=== PATIENT | male | born 1955 | race Caucasian/White ===

== ENCOUNTER 2020-05-08 08:18 | Outpatient (REF) | payer MEDICARE, SELFPAY ==
[2020-05-08 10:22] LABS: MANUAL DIFF FLAG NO
[2020-05-08 10:28] LABS: Basophils Absolute Auto 0.1 X10*3/uL (0.0-0.2); Basophils Percent Auto 1.4 % (0-2); Eosinophils Absolute Auto 0.3 X10*3/uL (0.0-0.4); Hematocrit 47.5 % (42-52); Hemoglobin 15.7 g/dl (14.0-18.0); Imm Gran Abs Auto 0.02 X10*3/uL (0.00-0.03); Imm Gran Pct Auto 0.3 % (0.0-0.4); Lymphocytes Absolute Auto 2.5 X10*3/uL (1.2-4.9); Lymphocytes Percent Auto 37.7 % (20-40); Mean Corpuscular HGB Conc 33.1 g/dl (31.0-36.0); Mean Corpuscular Hemoglobin 31.3 pg (27.0-33.0); Mean Corpuscular Volume 94.6 fL (80-98); Monocytes Absolute Auto 0.5 X10*3/uL (0.1-1.2); Monocytes Percent Auto 7.1 % (2-11); Neutrophils Absolute Auto 3.3 X10*3/uL (2.0-8.3); Neutrophils Percent Auto 49.5 % (45-73); Platelet Count 261 X10*3/uL (160-400); Red Blood Count 5.02 X10*6/uL (4.60-5.80); Red Cell Distribution Width 12.4 % (11.0-16.0); White Blood Count 6.6 X10*3/uL (4.8-10.8)
[2020-05-08 11:46] LABS: Alanine Aminotransferase 22 U/L (0-40); Albumin Level 4.4 g/dL (3.5-5.0); Alkaline Phosphatase 65 U/L (39-117); Anion Gap 13 (12-20); Aspartate Amino Transferase 19 U/L (5-37); Bilirubin Total 0.7 mg/dL (0.0-1.0); Blood Urea Nitrogen 14 mg/dL (9-16); Carbon Dioxide 25 mmol/L (22-29); Chloride 106 mmol/L (96-108); Cholesterol 103 mg/dL; Estimated Glomerular Filt Rate > 60; Glucose Fasting 135 mg/dL (60-99); HDL Cholesterol 28 mg/dL; LDL Cholesterol Calculated 63 mg/dl; Potassium 4.8 mmol/l (3.3-5.1); Sodium 139 mmol/L (135-145); Triglycerides 61 mg/dL
[2020-05-08 11:47] LABS: Creatinine Urine 190.95 mg/dL; Erythrocyte Sedimentation Rate 3 MM/HR (0-15); Microalbum/Creatinine Ratio Ur 3.6 ug/mg cr
== END 2020-05-08 08:19 | disposition home or self-care (01) ==
LOC: HO.WFDLDS 08:18
PROVIDERS: PCP Family Medicine; Visit Provider Family Medicine
DX: E78.2 Mixed hyperlipidemia (principal); Z00.00 Encounter for general adult medical examination without abnormal findings; I10 Essential (primary) hypertension; R03.0 Elevated blood-pressure reading, without diagnosis of hypertension; E11.9 Type 2 diabetes mellitus without complications; I25.10 Atherosclerotic heart disease of native coronary artery without angina pectoris; J44.9 Chronic obstructive pulmonary disease, unspecified; M19.041 Primary osteoarthritis, right hand; M19.042 Primary osteoarthritis, left hand; L57.0 Actinic keratosis
CPT/HCPCS: 36415; 80053; 80061; 82043; 84443; 85025; 85652

== ENCOUNTER 2020-08-31 15:33 | Outpatient (REF) | payer MEDICARE, SELFPAY ==
[2020-08-31 14:44] LABS: Microalbum/Creatinine Ratio Ur 4.3 ug/mg cr
== END 2020-08-31 15:34 | disposition home or self-care (01) ==
LOC: HO.LNP 15:33
PROVIDERS: Visit Provider Family Medicine
DX: I10 Essential (primary) hypertension (principal); E11.9 Type 2 diabetes mellitus without complications
CPT/HCPCS: 82043

== ENCOUNTER 2020-10-31 08:36 | Outpatient (REF) | payer MEDICARE, SELFPAY ==
[2020-10-31 11:51] LABS: Estimated Average Glucose 143 mg/dL; Hemoglobin A1c % 6.6 %
[2020-10-31 12:21] LABS: PSA,Total (Free>4and<10) 0.59 ng/mL (0.00-4.00)
[2020-10-31 12:25] LABS: Alanine Aminotransferase 20 U/L (0-40); Albumin Level 4.3 g/dL (3.5-5.0); Alkaline Phosphatase 68 U/L (39-117); Anion Gap 14 (12-20); Aspartate Amino Transferase 15 U/L (5-37); Bilirubin Total 0.7 mg/dL (0.0-1.0); Blood Urea Nitrogen 15 mg/dL (9-16); Calcium 9.1 mg/dL (8.4-10.2); Carbon Dioxide 23 mmol/L (22-29); Chloride 104 mmol/L (96-108); Estimated Glomerular Filt Rate 58; Glucose Random 288 mg/dL (60-115); Potassium 4.2 mmol/L (3.3-5.1); Sodium 137 mmol/L (135-145); Total Protein 6.9 g/dL (6.5-8.0)
[2020-11-01 08:14] LABS: Hepatitis B Core Antibody Nonreactive (Nonreactive); ~HepC Num1 0.08 S/CO (0.00-0.79); ~Hepatitis C Antibody Nonreactive (Nonreactive)
[2020-11-01 08:35] LABS: HBS Num1 0.87 mIU/mL (0-7.99); HBsAGNum1 0.48 S/CO (0.00-0.99); Hepatitis B Surface Antigen Negative (Negative); ~Hepatitis B Surface Antibody NONREACTIVE (Nonreactive)
== END 2020-10-31 08:37 | disposition home or self-care (01) ==
LOC: HO.WFDLDS 08:36
PROVIDERS: Visit Provider Family Medicine
DX: E11.9 Type 2 diabetes mellitus without complications (principal); Z11.3 Encounter for screening for infections with a predominantly sexual mode of transmission; Z11.59 Encounter for screening for other viral diseases; Z12.5 Encounter for screening for malignant neoplasm of prostate
CPT/HCPCS: 36415; 80053; 83036; 84153; 86704; 86706; 86803; 87340

== ENCOUNTER 2021-05-09 08:38 | Outpatient (REF) | payer MEDICARE, SELFPAY ==
[2021-05-09 11:29] LABS: Appearance Urine CLEAR; Color Urine YELLOW; Glucose Urine UA NEG (NEG); Leukocyte Esterase Urine NEG (NEG); Nitrite Urine NEG (NEG); PH 5.5 (5.0-8.0); Specific Gravity - Urine >= 1.030 (1.005-1.025); Urine Blood NEG (NEG); Urine Ketones NEG (NEG); Urine Protein NEG (NEG-TRACE)
[2021-05-09 12:10] LABS: Alanine Aminotransferase 20 U/L (0-40); Albumin Level 4.2 g/dL (3.5-5.0); Alkaline Phosphatase 71 U/L (39-117); Anion Gap 14 (12-20); Aspartate Amino Transferase 18 U/L (5-37); Bilirubin Total 0.6 mg/dL (0.0-1.0); Blood Urea Nitrogen 9 mg/dL (9-16); Calcium 9.1 mg/dL (8.4-10.2); Carbon Dioxide 22 mmol/L (22-29); Chloride 107 mmol/L (96-108); Cholesterol 108 mg/dL; Estimated Glomerular Filt Rate > 60; Glucose Fasting 119 mg/dL (60-99); HDL Cholesterol 28 mg/dL; LDL Cholesterol Calculated 68 mg/dl; Potassium 4.1 mmol/L (3.3-5.1); Sodium 139 mmol/L (135-145); Total Protein 6.7 g/dL (6.5-8.0); Triglycerides 62 mg/dL
[2021-05-09 12:19] LABS: TSH reflex Free T4 1.07 uIU/mL (0.32-4.0)
[2021-05-09 12:22] LABS: Creatinine Urine 178.86 mg/dL; Microalbum/Creatinine Ratio Ur 8.9 ug/mg cr
[2021-05-10 09:36] LABS: HBc Num1 0.11 S/CO (0.00-0.79); HBsAGNum1 0.16 S/CO (0.00-0.99); Hepatitis B Core Antibody Nonreactive (Nonreactive); Hepatitis B Surface Antigen Negative (Negative); ~HepC Num1 0.11 S/CO (0.00-0.79); ~Hepatitis B Surface Antibody NONREACTIVE (Nonreactive); ~Hepatitis C Antibody Nonreactive (Nonreactive)
== END 2021-05-09 08:39 | disposition home or self-care (01) ==
LOC: HO.WFDLDS 08:38
PROVIDERS: Visit Provider Family Medicine
DX: Z00.00 Encounter for general adult medical examination without abnormal findings (principal); E11.9 Type 2 diabetes mellitus without complications; I10 Essential (primary) hypertension; Z11.3 Encounter for screening for infections with a predominantly sexual mode of transmission
CPT/HCPCS: 36415; 80053; 80061; 81003; 82043; 84443; 86704; 86706; 86803; 87340

== ENCOUNTER 2021-06-06 11:42 | Outpatient (REF) | payer MEDICARE, SELFPAY ==
[2021-06-06 14:29] LABS: Anion Gap 10 (12-20); Blood Urea Nitrogen 11 mg/dL (9-16); Calcium 9.2 mg/dL (8.4-10.2); Carbon Dioxide 26 mmol/L (22-29); Chloride 107 mmol/L (96-108); Estimated Glomerular Filt Rate > 60; Glucose Random 95 mg/dL (60-115); Potassium 4.4 mmol/L (3.3-5.1); Sodium 139 mmol/L (135-145)
[2021-06-06 14:30] LABS: Estimated Average Glucose 128 mg/dL; Hemoglobin A1c % 6.1 %
== END 2021-06-06 11:43 | disposition home or self-care (01) ==
LOC: HO.WFDLDS 11:42
PROVIDERS: Visit Provider Family Medicine
DX: Z00.00 Encounter for general adult medical examination without abnormal findings (principal); E11.9 Type 2 diabetes mellitus without complications
CPT/HCPCS: 36415; 80048; 83036

== ENCOUNTER 2021-06-13 13:49 | Outpatient (REF) | payer MEDICARE, SELFPAY | END 2021-06-13 13:50 | disposition home or self-care (01) | LOC: HO.LNP 13:49 | PROVIDERS: Visit Provider Hospitalist | DX: Z20.822 Contact with and (suspected) exposure to COVID-19 (principal) | CPT/HCPCS: U0003; U0005 ==

== ENCOUNTER → 2022-01-10 09:26 | Outpatient (BNVA) | payer MEDICARE, SELFPAY | PROVIDERS: PCP Family Medicine; Visit Provider Surgery Vascular Surgery | DX: I73.9 Peripheral vascular disease, unspecified (principal) | CPT/HCPCS: 99202 ==

== ENCOUNTER 2022-02-28 14:13 | Outpatient (REF) | payer MEDICARE, SELFPAY ==
--- NOTE | ~2022-02-28 | US_ITS ---
EXAMINATION: COLOR-FLOW DUPLEX IMAGING OF THE BILATERAL LOWER EXTREMITY ARTERIAL SYSTEM. VELOCITY MEASUREMENTS THROUGHOUT THE FEMORAL ARTERIES WITH ANKLE-BRACHIAL PERIPHERAL ARTERIAL TESTING. Interventional Radiologist: Isaías Diaz M.D., F.S.I.R., F.A.C.R. CLINICAL INFORMATION: This is a 66 year old male with peripheral vascular disease. RIGHT FEMORAL RUNOFF VELOCITIES: The right common femoral artery measures 153 cm/s and triphasic. The right profunda femoral artery is 127 cm/s and is triphasic. Right proximal superficial femoral artery measures 86 cm/s and biphasic. Mid superficial femoral artery is 127 cm/s and triphasic. Distal right superficial femoral artery measures 146 cm/s and is triphasic. Right popliteal velocity measures 63 cm/s and is biphasic. The posterior tibial artery velocity measures 85 cm/s and was triphasic. The right ankle-brachial next is 1.08. LEFT FEMORAL RUNOFF VELOCITIES: The left common femoral artery measures 156 cm/s and triphasic. The left profunda femoral artery is 187 cm/s and is triphasic. Left proximal superficial femoral artery measures 127 cm/s and biphasic. Mid superficial femoral artery is 38 cm/s and monophasic. Distal left superficial femoral artery has focal occlusion with slow flow that measures 32 cm/s and is monophasic. Left popliteal velocity measures 38 cm/s and is monophasic. The posterior tibial artery velocity has segmental occlusion with slow flow that measures 16 cm/s and was monophasic. The left ankle-brachial index is 0.55. US/US arterial duplex LE BI IMPRESSION: 1. RIGHT SIDE: There is scattered atherosclerotic disease in the right superficial femoral artery but with a normal ankle-brachial next. 2. LEFT SIDE: There is are occluded segments of the distal left superficial femoral artery and in the posterior tibial artery. This is causing significant decrease in the ankle-brachial index.
--- NOTE | ~2022-02-28 | US_ITS ---
EXAMINATION: COLOR-FLOW DUPLEX IMAGING OF THE BILATERAL LOWER EXTREMITY ARTERIAL SYSTEM. VELOCITY MEASUREMENTS THROUGHOUT THE FEMORAL ARTERIES WITH ANKLE-BRACHIAL PERIPHERAL ARTERIAL TESTING. Interventional Radiologist: Isaías Diaz M.D., F.S.I.R., F.A.C.R. CLINICAL INFORMATION: This is a 66 year old male with peripheral vascular disease. RIGHT FEMORAL RUNOFF VELOCITIES: The right common femoral artery measures 153 cm/s and triphasic. The right profunda femoral artery is 127 cm/s and is triphasic. Right proximal superficial femoral artery measures 86 cm/s and biphasic. Mid superficial femoral artery is 127 cm/s and triphasic. Distal right superficial femoral artery measures 146 cm/s and is triphasic. Right popliteal velocity measures 63 cm/s and is biphasic. The posterior tibial artery velocity measures 85 cm/s and was triphasic. The right ankle-brachial next is 1.08. LEFT FEMORAL RUNOFF VELOCITIES: The left common femoral artery measures 156 cm/s and triphasic. The left profunda femoral artery is 187 cm/s and is triphasic. Left proximal superficial femoral artery measures 127 cm/s and biphasic. Mid superficial femoral artery is 38 cm/s and monophasic. Distal left superficial femoral artery has focal occlusion with slow flow that measures 32 cm/s and is monophasic. Left popliteal velocity measures 38 cm/s and is monophasic. The posterior tibial artery velocity has segmental occlusion with slow flow that measures 16 cm/s and was monophasic. The left ankle-brachial index is 0.55. US/US JEAN PIERRE complete IMPRESSION: 1. RIGHT SIDE: There is scattered atherosclerotic disease in the right superficial femoral artery but with a normal ankle-brachial next. 2. LEFT SIDE: There is are occluded segments of the distal left superficial femoral artery and in the posterior tibial artery. This is causing significant decrease in the ankle-brachial index.
== END 2022-02-28 14:14 | disposition home or self-care (01) ==
LOC: HO.US 14:13
PROVIDERS: Visit Provider Surgery Vascular Surgery
DX: I73.9 Peripheral vascular disease, unspecified (principal)
CPT/HCPCS: 93923; 93925

== ENCOUNTER → 2022-03-05 15:02 | Outpatient (BNVA) | payer MEDICARE, SELFPAY | PROVIDERS: PCP Family Medicine; Visit Provider Surgery Vascular Surgery | DX: I73.9 Peripheral vascular disease, unspecified (principal) | CPT/HCPCS: 99212 ==

== ENCOUNTER → 2022-04-16 15:07 | Outpatient (BNVA) | payer MEDICARE, SELFPAY | PROVIDERS: PCP Family Medicine; Visit Provider Surgery Vascular Surgery | DX: I73.9 Peripheral vascular disease, unspecified (principal) | CPT/HCPCS: 99212 ==

== ENCOUNTER 2022-05-22 07:00 | Day surgery (SDC) | payer MEDICARE, SELFPAY ==
[2022-05-22] VITALS (18 sets, daily range): BP systolic 83–116; BP diastolic 49–73; PULSE 54–86; RESP 16–18; TEMP 36.1–37.1; O2SAT 95–99; BMI 26.1
[2022-05-22 07:19] LABS: Glucose, Whole Blood 131 mg/dL (60-115)
[2022-05-22 07:29] LABS: MANUAL DIFF FLAG NO
[2022-05-22 07:30] LABS: Basophils Absolute Auto 0.1 X10*3/uL (0.0-0.2); Basophils Percent Auto 1.2 % (0-2); Eosinophils Absolute Auto 0.3 X10*3/uL (0.0-0.4); Eosinophils Percent Auto 3.4 % (0-4); Hematocrit 47.4 % (42.0-52.0); Hemoglobin 15.6 g/dl (14.0-18.0); Imm Gran Abs Auto 0.02 X10*3/uL (0.00-0.03); Imm Gran Pct Auto 0.2 % (0.0-0.4); Lymphocytes Absolute Auto 2.8 X10*3/uL (1.2-4.9); Lymphocytes Percent Auto 30.6 % (20-40); Mean Corpuscular HGB Conc 32.9 g/dl (31.0-36.0); Mean Corpuscular Hemoglobin 31.1 pg (27.0-33.0); Mean Corpuscular Volume 94.4 fL (80.0-98.0); Mean Platelet Volume 9.6 fL (9.4-12.4); Monocytes Absolute Auto 0.7 X10*3/uL (0.1-1.2); Neutrophils Absolute Auto 5.2 x10*3/uL (2.0-8.3); Neutrophils Percent Auto 56.6 % (45-73); Platelet Count 243 X10*3/uL (160-400); Red Blood Count 5.02 X10*6/uL (4.60-5.80); Red Cell Distribution Width 12.9 % (11.0-16.0); White Blood Count 9.1 X10*3/uL (4.8-10.8)
[2022-05-22] MEDS: 0.9 % Sodium Chloride 1,000 ML 100 ML IVCONT (07:41)
[2022-05-22 07:48] LABS: Blood Urea Nitrogen 14 mg/dL (9-16); Estimated Glomerular Filt Rate > 60
--- NOTE | 2022-05-22 07:50 | ECG_ITS ---
Test Reason : syncope Blood Pressure : / mmHG Vent. Rate : 050 BPM Atrial Rate : 050 BPM P-R Int : 206 ms QRS Dur : 096 ms QT Int : 456 ms P-R-T Axes : 065 065 056 degrees QTc Int : 415 ms Sinus bradycardia Otherwise normal ECG No previous ECGs available Referred By: Abebe Lindsey Electronically Signed By:IVONNE RIZVI MD
[2022-05-22 07:52] LABS: Glucose, Whole Blood 131 mg/dL (60-115)
--- NOTE | 2022-05-22 07:52 | PC.NURSE ---
pt sts feeling dizzy, feels faint pulse 32-41 was in the 70S check bs and b/p wnl pt diaphoretic, denies c/p neuros intact chito inman rn to make dr martínez aware ekg ordered
--- NOTE | 2022-05-22 08:04 | PC.NURSE ---
ekg performed pt feeling better 300ml bolus given ls clear pwd neuros intact denies dizziness at this time
--- NOTE | 2022-05-22 08:08 | PC.NURSE ---
b/p low 84/56 pulse 52 denies dizziness pwd rad aware bolus cont
--- NOTE | 2022-05-22 08:40 | PC.NURSE ---
pt pwd denies dizziness a/ox3 neuros intact SB with occ pvcs ls clear aware careplan
--- NOTE | 2022-05-22 08:57 | PC.NURSE ---
everyone aware of patients status
[2022-05-22 09:08] LABS: Glucose, Whole Blood 135 mg/dL (60-115)
--- NOTE | 2022-05-22 09:48 | PC.NURSE ---
pt resting comfortably denies pain pwd dr martínez at bedside aware of patient status
[2022-05-22] MEDS: iohexoL 350 MG/ML 100 ML INFUS..BTL IV (12:08)
--- NOTE | 2022-05-22 12:14 | P.OP_ITS ---
Operative Note Operative Note Date of Service: 05/22/22 Narrative: Angiogram report from [facility] Preoperative diagnosis: Atherosclerosis of left lower extremity with activity limiting claudication Postoperative diagnosis: Same Procedure: 1. Ultrasound-guided right common femoral access 2. Aortogram with left lower extremity runoff Surgeon:Abebe Lindsey M.D., FACS, RPVI [employer] Helper:None Anesthesia: Local with moderate conscious sedation. Total intraservice mode rate sedation time was 49 minutes. I monitored the patient's level of consciousness and physiologic status continuously throughout the procedure. Specimens:none Drains:none Estimated blood loss: Less than 10 ml Implant: None Indications: 66-year-old with activity limiting claudication. Noted to have an JEAN PIERRE of 0.55 on noninvasive testing. Now presents for endovascular intervention The patient has signed the informed consent after reviewing risks, complications, benefits, and alternatives previously discussed with the patient. The patient was given the opportunity to ask any additional questions or voice any concerns. All questions were answered to the patient's satisfaction. Procedure in detail: Patient was brought to the angiography suite prior to which a time-out was called for patient identification and site verification. Bilateral groins were prepped and draped in the standard surgical fashion. Under ultrasound guidance right common femoral was punctured with micro puncture needle and wire. Subsequently a precision 4 Yoruba sheath was then placed. [employer] System[employer] wire was advanced to the level of the aorta. 4 Yoruba Flush catheter was brought up and parked at the level of the renal arteries. Aortogram was then undertaken. Catheter was brought down to the level of the iliac bifurcation. Iliacs were subsequently imaged. Catheter was then brought in up and over to the left side SFA. Runoff study was then undertaken. We noted a total occlusion in the distal SFA. We we tried multiple wires and catheters to traverse this lesion. We were unable to do so. Multiple orthogonal views were then undertaken. Runoff study was then also undertaken. Procedure was then completed. Catheter wire sheath was removed. Direct pressure was held for approximately 10 minutes. Patient tolerated the procedure well. Returned to recovery with stable vitals. Interpretation of films: 1. Ultrasound demonstrates appropriate femoral puncture. Image of which was saved. 2. Aortogram demonstrates appropriate caliber aorta. Minimal disease. Appropriate take-off of the renals. 3. Iliac images demonstrate highly calcified but no flow-limiting stenosis 4. Left Leg Common femoral artery: Moderate disease in the common femoral Profundus Femoris: No significant disease Superficial femoral artery: Calcified throughout total occlusion at Kiran's canal reconstitutes at the above knee popliteal Popliteal artery (p1,p2,p3): P2 segment has a mild to moderate stenosis Anterior tibial artery: Reconstitutes via collateral in supplies the foot Peroneal artery: Reconstitutes via collaterals and supplies the foot Posterior tibial artery: Occluded Dorsalis pedis/plantar arch: Incomplete Conclusion: 1. Successful diagnostic angiogram if surgery is required it would be a fem below-knee popliteal bypass. 2. Anticoagulation status: No change This note is constructed using voice recognition software. While every effort has been made to ensure accuracy, cosmetic sales consultant errors may have been included. Thank you for allowing me to participate in the care of your patient. Yours sincerely, Abebe Lindsey MD, FACS, R.P.V.I.
== END 2022-05-22 15:26 | disposition home or self-care (01) ==
PROVIDERS: PCP Family Medicine; Visit Provider Surgery Vascular Surgery
DX: I70.262 Atherosclerosis of native arteries of extremities with gangrene, left leg (principal); F17.210 Nicotine dependence, cigarettes, uncomplicated
CPT/HCPCS: 36246; 36415; 75630; 76937; 82565; 82947; 84520; 85025; 93005; 99152; 99153; C1769; C1887; J2250; J3010; Q9967

== ENCOUNTER → 2022-06-04 14:21 | Outpatient (BNVA) | payer MEDICARE, SELFPAY | PROVIDERS: PCP Family Medicine; Visit Provider Surgery Vascular Surgery | DX: I73.9 Peripheral vascular disease, unspecified (principal) | CPT/HCPCS: 99212 ==

== ENCOUNTER 2022-06-12 07:19 | Outpatient (REF) | payer MEDICARE, SELFPAY ==
[2022-06-12 11:23] LABS: MANUAL DIFF FLAG NO
[2022-06-12 11:27] LABS: Basophils Absolute Auto 0.2 X10*3/uL (0.0-0.2); Basophils Percent Auto 1.8 % (0-2); Eosinophils Absolute Auto 0.2 X10*3/uL (0.0-0.4); Eosinophils Percent Auto 2.6 % (0-4); Hematocrit 45.9 % (42.0-52.0); Hemoglobin 15.3 g/dl (14.0-18.0); Imm Gran Abs Auto 0.03 X10*3/uL (0.00-0.03); Imm Gran Pct Auto 0.4 % (0.0-0.4); Lymphocytes Absolute Auto 2.8 X10*3/uL (1.2-4.9); Lymphocytes Percent Auto 32.9 % (20-40); Mean Corpuscular HGB Conc 33.3 g/dl (31.0-36.0); Mean Corpuscular Hemoglobin 31.2 pg (27.0-33.0); Mean Corpuscular Volume 93.5 fL (80.0-98.0); Mean Platelet Volume 10.4 fL (9.4-12.4); Monocytes Absolute Auto 0.7 X10*3/uL (0.1-1.2); Monocytes Percent Auto 8.3 % (2-11); Neutrophils Absolute Auto 4.6 x10*3/uL (2.0-8.3); Platelet Count 261 X10*3/uL (160-400); Red Blood Count 4.91 X10*6/uL (4.60-5.80); Red Cell Distribution Width 12.8 % (11.0-16.0); White Blood Count 8.4 X10*3/uL (4.8-10.8)
[2022-06-12 11:43] LABS: Appearance Urine Clear; Color Urine Yellow; Glucose Urine UA Negative (Negative); Leukocyte Esterase Urine Negative (Negative); Nitrite Urine Negative (Negative); Urine Blood Negative (Negative); Urine Ketones Negative (Negative); Urine Protein Negative (Neg-Trace)
[2022-06-12 12:06] LABS: TSH reflex Free T4 1.52 uIU/mL (0.32-4.0)
[2022-06-12 12:18] LABS: Alanine Aminotransferase 20 U/L (0-40); Albumin Level 4.5 g/dL (3.5-5.0); Alkaline Phosphatase 67 U/L (39-117); Anion Gap 14 (12-20); Aspartate Amino Transferase 21 U/L (5-37); Bilirubin Total 0.7 mg/dL (0.0-1.0); Blood Urea Nitrogen 14 mg/dL (9-16); Calcium 9.4 mg/dL (8.4-10.2); Carbon Dioxide 25 mmol/L (22-29); Chloride 105 mmol/L (96-108); Cholesterol 115 mg/dL; Estimated Glomerular Filt Rate > 60; Glucose Fasting 111 mg/dL (60-99); HDL Cholesterol 28 mg/dL; LDL Cholesterol Calculated 74 mg/dl; Potassium 4.4 mmol/L (3.3-5.1); Sodium 140 mmol/L (135-145); Total Protein 7.3 g/dL (6.5-8.0); Triglycerides 66 mg/dL
[2022-06-12 12:29] LABS: Creatinine Urine 192.87 mg/dL; Microalbum/Creatinine Ratio Ur 5.7 ug/mg cr
[2022-06-12 12:50] LABS: Prostate Specific Antigen Scr 0.79 ng/mL (<0.05-4.0)
== END 2022-06-12 07:20 | disposition home or self-care (01) ==
LOC: HO.WFDLDS 07:19
PROVIDERS: Visit Provider Family Medicine
DX: Z00.00 Encounter for general adult medical examination without abnormal findings (principal); Z12.5 Encounter for screening for malignant neoplasm of prostate; I10 Essential (primary) hypertension
CPT/HCPCS: 36415; 80053; 80061; 81003; 82043; 84153; 84443; 85025

== ENCOUNTER 2022-08-12 17:11 | Outpatient (REF) | payer MEDICARE, SELFPAY ==
--- NOTE | ~2022-08-12 | XR_ITS ---
EXAMINATION: XR SHOULDER, LEFT CLINICAL INFORMATION: Pain. COMPARISON: Radiographs dated 08/06/2022. TECHNIQUE: AP external rotation, Grashey, scapular Y, and axillary views of the left shoulder. FINDINGS: Bone mineralization is normal. There is a mildly displaced and angulated transverse fracture on the left humeral neck. There is subluxation of the glenohumeral joint, without jonathan dislocation. There is a distal acromial undersurface osteophyte. The acromioclavicular and coracoclavicular intervals are normal. There is no soft tissue calcification or foreign body. No left pneumothorax is seen. XR/XR shoulder LT min 2V IMPRESSION: There is stable alignment of a mildly displaced and angulated fracture of the left humeral neck. No significant callus formation is seen.
== END 2022-08-12 17:12 | disposition home or self-care (01) ==
LOC: HO.HOSX 17:11
PROVIDERS: Visit Provider Physician Assistant
DX: S42.202A Unspecified fracture of upper end of left humerus, initial encounter for closed fracture (principal)
CPT/HCPCS: 73030; 99202

== ENCOUNTER 2022-09-12 12:37 | Outpatient (REF) | payer MEDICARE, SELFPAY ==
--- NOTE | ~2022-09-12 | XR_ITS ---
EXAMINATION: XR SHOULDER, LEFT CLINICAL INFORMATION: Pain. COMPARISON: Radiographs dated 08/12/2022. TECHNIQUE: AP neutral and scapular Y views of the left shoulder. FINDINGS: Slight bony demineralization is suspected. There is stable alignment of a mildly displaced and angulated transverse fracture of the left humeral neck. There is mild new callus formation. The glenohumeral joint is intact. The acromioclavicular and coracoclavicular intervals are normal. No soft tissue calcification or foreign body is seen. There is no left pneumothorax. XR/XR shoulder LT min 2V IMPRESSION: There is stable alignment of a transverse, mildly angulated fracture of the surgical neck of the proximal left humerus. There is mild callus formation now noted.
== END 2022-09-12 12:38 | disposition home or self-care (01) ==
LOC: HO.HOSX 12:37
PROVIDERS: Visit Provider Physician Assistant
DX: S42.202D Unspecified fracture of upper end of left humerus, subsequent encounter for fracture with routine healing (principal)
CPT/HCPCS: 73030

== ENCOUNTER 2022-09-13 08:17 | Outpatient (REF) | payer MEDICARE, SELFPAY ==
[2022-09-13 11:45] LABS: Anion Gap 15 (12-20); Blood Urea Nitrogen 16 mg/dL (9-16); Calcium 9.6 mg/dL (8.4-10.2); Carbon Dioxide 24 mmol/L (22-29); Chloride 104 mmol/L (96-108); Estimated Glomerular Filt Rate > 60; Glucose Fasting 110 mg/dL (60-99); Potassium 4.2 mmol/L (3.3-5.1); Sodium 139 mmol/L (135-145)
[2022-09-13 12:38] LABS: Appearance Urine Clear; Color Urine Yellow; Glucose Urine UA Negative (Negative); Leukocyte Esterase Urine Negative (Negative); Nitrite Urine Negative (Negative); PH 5.5 (5.0-9.0); Specific Gravity - Urine 1.015 (1.005-1.025); Urine Blood Negative (Negative); Urine Ketones Negative (Negative); Urine Protein Negative (Neg-Trace)
[2022-09-13 12:58] LABS: Creatinine Urine 112.74 mg/dL; Microalbumin Urine < 5.0 mg/L
== END 2022-09-13 08:18 | disposition home or self-care (01) ==
LOC: HO.WFDLDS 08:17
PROVIDERS: Visit Provider Family Medicine
DX: Z00.00 Encounter for general adult medical examination without abnormal findings (principal); E11.9 Type 2 diabetes mellitus without complications; I10 Essential (primary) hypertension
CPT/HCPCS: 36415; 80048; 81003; 82043

== ENCOUNTER 2022-10-21 08:12 | Outpatient (REF) | payer MEDICARE, SELFPAY ==
--- NOTE | ~2022-10-21 | XR_ITS ---
EXAMINATION: XR SHOULDER, LEFT CLINICAL INFORMATION: Left shoulder pain COMPARISON: 09/12/2022 TECHNIQUE: AP external rotation, Grashey, scapular Y, and axillary views of the left shoulder. FINDINGS: Redemonstration of a transverse fracture of the surgical neck of the proximal left humerus with mild osseous bridging suggestive of interval healing. XR/XR shoulder LT min 2V IMPRESSION: Healing transverse fracture of the surgical neck of the proximal left humerus.
== END 2022-10-21 08:13 | disposition home or self-care (01) ==
LOC: HO.HOSX 08:12
PROVIDERS: Visit Provider Physician Assistant
DX: S42.202D Unspecified fracture of upper end of left humerus, subsequent encounter for fracture with routine healing (principal)
CPT/HCPCS: 73030

== ENCOUNTER 2022-11-04 08:20 | Outpatient (REF) | payer MEDICARE, SELFPAY ==
--- NOTE | ~2022-11-04 | US_ITS ---
EXAMINATION: ANKLE-BRACHIAL INDICES SINGLE LEVEL PULSE VOLUME RECORDING ARTERIAL DUPLEX BILATERAL LEGS CLINICAL INFORMATION: Peripheral vascular disease. COMPARISON: None TECHNIQUE: Ankle-brachial indices and PVR at the ankle were obtained. Duplex Doppler of the bilateral lower extremity arterial systems was performed. FINDINGS: RIGHT: Ankle-brachial index: 1.56 PVR: Mildly abnormal. Diffuse atherosclerotic disease. Common femoral: PSV 103 cm/s. Triphasic waveform. Deep femoral: PSV 145 cm/s. Triphasic waveform. Proximal superficial femoral: PSV 173 cm/s. Triphasic waveform. Mid superficial femoral: PSV 66 cm/s. Triphasic waveform. Distal superficial femoral: PSV 49 cm/s. Triphasic waveform. Popliteal: PSV 25 cm/s. Triphasic waveform. Posterior tibial: PSV 62 cm/s. Triphasic waveform. Peroneal: PSV 2 cm/s. Triphasic waveform. LEFT: Ankle-brachial index: 0.69 PVR: Moderately abnormal. Diffuse atherosclerotic disease with occlusion of the mid and distal superficial femoral artery and posterior tibial artery. Common femoral: PSV 131 cm/s. Triphasic waveform. Deep femoral: PSV 212 cm/s. Triphasic waveform. Proximal superficial femoral: PSV 76 cm/s. Monophasic waveform. Mid superficial femoral: Occluded. Distal superficial femoral: Occluded. Popliteal: PSV 20 cm/s. Monophasic waveform. Posterior tibial: Occluded. Peroneal: PSV 14 cm/s. Monophasic waveform. US/US JEAN PIERRE complete IMPRESSION: Right lower extremity: Ankle-brachial index of 1.56 likely indicative of calcified blood vessels. Mildly abnormal pulse volume recording at the ankle. Diffuse atherosclerotic disease without hemodynamically significant disease by Doppler. Left lower extremity: Ankle-brachial index of 0.69 and abnormal pulse volume recording at the ankle consistent with moderate peripheral vascular disease. Occlusion of the mid and distal superficial femoral artery. The popliteal artery is reconstituted with a monophasic waveform. The posterior tibial artery is occluded. The peroneal artery is patent with a monophasic waveform.
--- NOTE | ~2022-11-04 | US_ITS ---
EXAMINATION: ANKLE-BRACHIAL INDICES SINGLE LEVEL PULSE VOLUME RECORDING ARTERIAL DUPLEX BILATERAL LEGS CLINICAL INFORMATION: Peripheral vascular disease. COMPARISON: None TECHNIQUE: Ankle-brachial indices and PVR at the ankle were obtained. Duplex Doppler of the bilateral lower extremity arterial systems was performed. FINDINGS: RIGHT: Ankle-brachial index: 1.56 PVR: Mildly abnormal. Diffuse atherosclerotic disease. Common femoral: PSV 103 cm/s. Triphasic waveform. Deep femoral: PSV 145 cm/s. Triphasic waveform. Proximal superficial femoral: PSV 173 cm/s. Triphasic waveform. Mid superficial femoral: PSV 66 cm/s. Triphasic waveform. Distal superficial femoral: PSV 49 cm/s. Triphasic waveform. Popliteal: PSV 25 cm/s. Triphasic waveform. Posterior tibial: PSV 62 cm/s. Triphasic waveform. Peroneal: PSV 2 cm/s. Triphasic waveform. LEFT: Ankle-brachial index: 0.69 PVR: Moderately abnormal. Diffuse atherosclerotic disease with occlusion of the mid and distal superficial femoral artery and posterior tibial artery. Common femoral: PSV 131 cm/s. Triphasic waveform. Deep femoral: PSV 212 cm/s. Triphasic waveform. Proximal superficial femoral: PSV 76 cm/s. Monophasic waveform. Mid superficial femoral: Occluded. Distal superficial femoral: Occluded. Popliteal: PSV 20 cm/s. Monophasic waveform. Posterior tibial: Occluded. Peroneal: PSV 14 cm/s. Monophasic waveform. US/US arterial duplex LE BI IMPRESSION: Right lower extremity: Ankle-brachial index of 1.56 likely indicative of calcified blood vessels. Mildly abnormal pulse volume recording at the ankle. Diffuse atherosclerotic disease without hemodynamically significant disease by Doppler. Left lower extremity: Ankle-brachial index of 0.69 and abnormal pulse volume recording at the ankle consistent with moderate peripheral vascular disease. Occlusion of the mid and distal superficial femoral artery. The popliteal artery is reconstituted with a monophasic waveform. The posterior tibial artery is occluded. The peroneal artery is patent with a monophasic waveform.
== END 2022-11-04 08:21 | disposition home or self-care (01) ==
LOC: HO.US 08:20
PROVIDERS: PCP Family Medicine; Visit Provider Surgery Vascular Surgery
DX: I70.213 Atherosclerosis of native arteries of extremities with intermittent claudication, bilateral legs (principal)
CPT/HCPCS: 93923; 93925

== ENCOUNTER → 2022-12-10 14:06 | Outpatient (BNVA) | payer MEDICARE, SELFPAY | PROVIDERS: PCP Family Medicine; Visit Provider Surgery Vascular Surgery | DX: I73.9 Peripheral vascular disease, unspecified (principal) | CPT/HCPCS: 99212 ==

== ENCOUNTER 2022-12-18 08:15 | Outpatient (REF) | payer MEDICARE, SELFPAY ==
--- NOTE | ~2022-12-18 | XR_ITS ---
EXAMINATION: XR SHOULDER, LEFT CLINICAL INFORMATION: Pain in left shoulder COMPARISON: Left shoulder 10/21/2022 TECHNIQUE: AP external rotation, Grashey, scapular Y, and axillary views of the left shoulder. FINDINGS: The bones are diffusely demineralized. Again seen is a transverse fracture of the surgical neck of the proximal left humerus with mild osseous bridging suggestive of interval healing. There is no change in position or alignment of the fracture fragments. Glenohumeral and acromioclavicular alignment is anatomic with normal joint space. No abnormal soft tissue calcifications. XR/XR shoulder LT min 2V IMPRESSION: Healing transverse fracture the surgical neck of the proximal left humerus
== END 2022-12-18 08:16 | disposition home or self-care (01) ==
LOC: HO.HOSX 08:15
PROVIDERS: Visit Provider Physician Assistant
DX: S42.202A Unspecified fracture of upper end of left humerus, initial encounter for closed fracture (principal)
CPT/HCPCS: 73030; 99212

== ENCOUNTER 2022-12-19 08:00 | Outpatient (RCR) | payer MEDICARE, SELFPAY ==
--- NOTE | 2022-10-18 11:25 | MHC.PT.OD ---
[facility] [place] Office [place] Office [place] Office [address] Paulo Matt [address] [phone] F: [phone] F: [phone] F: [phone] F: [phone] Physical Therapy Daily Note Diagnosis: S42.202A Unspecified frature of upper end of humerus, initial encounter for closed fracture, GENTLE ROM and perscap stabiization signed by Brigid Mancera PA-C 09/12/22 Date of Surgery: Date of Evaluation: 09/17/22 Date of Treatment: 10/18/22 Treatments to Date: Cancellations to Date: No Shows to Date: Authorized Visits: 8 Insurance End Date: Precautions/ Contraindications:cardiac, clot L LE per patient- under monitoring by cardiology- NWB L UE closed proximal humeral fracture DOI 08/06/22 history HTN, DMII, history of skin CA face L LE occlusion, cardiac, L closed proximal humeral fracture NWB L UE DOI 08/06/22 Subjective: DOI 08/06/22 fall skiing landing on L UE Was doing okay until I fell asleep funny leaning on my arm yesterday. Pain Score and Location: Objective Flowsheet: Tests & Measures AAROM flexion supine ~110 AAROM IR midline L5 with strap AAROM ER to ear Pt reports can carry cup of coffee, small water bottle Exercises Sitting with MHP with pillow under arm with MHP draped over L proximal shoulder x 10 minutes for gentle warm-up prior to ROM activities, AAROM hand interlocked for supine AAROM flexion, AAROM table slides for flexion x 10R with gentle shoulder flexion cue to stay neutral line of shoulder, trial gentle for subtle scaption in sitting x 3 reps, AAROM supine with aide of opposite hand at wrist/forearm improved tolerance post, AAROM IR with strap x 10 sec hold x 5R, education to refrain from pushing into pain, AAROM, AAROM flexion in standing with fingers interlocked within pain-free aide, AAROM flexion with steve x 10 sec hold x 5R. Encouraged patient to implement a gentle walking program to encourage AROM/relaxation of the L UE with promotion for natural arm swing. AAROM flexion in standing x 3 reps with cues for aide of lowering. Ice to L shoulder seated post activity. Reapplied ROCKTAPE two I strips for scapular retraction, thoracic extension with arms by side medial border of scap, along spine. HEP sheets issued see chart- pendulums PAINFEE AAROM IR with strap, AAROM flexion in standing with use of mirror, AAROM flexion for steve within painfree range Modalities MHP to L shoulder sitting x 10 minute pre activity with pillow support under UE to ease tissues, ice x 10 minutes post PROM supine with two square ice packs around proximal L UE. Assessment: 10/18/22: AAROM flexion in supine with wand ~110 degrees. Pt has been implemented in gentle AAROM program with good tolerance. Pt reports he is now able to lace/tie his shoes. Pt scheduled to see [facility] ortho on Friday. Pt has attended 8 session of PT to date, will continue to progress therapy twice weekly with goal of increasing AAROM/AROM as tolerated. Pt has been initiated in gentle periscap strength and was trialed once so far with submax isometric with good tolerance. He has been encouraged to implement a gentle walking program and functional use of L UE to tolerance. 10/14/22 Introduced AAROM IR with strap with good tolerance near midline L4, AAROM flexion in standing ~95 degrees this date. Pt to see [facility] ortho on 10/21/22 at 8:30am for follow-up. 10/08/22 Introduced AAROM flexion via steve with good tolerance with emphasis for GENTLE painfree ROM. Pt to trial in the office one more visit prior to visiting ability to complete at home. Pt guarded and stiff in AAROM/PROM flexion of L UE. Pt exhibits improving relaxation of L UE during ADLS/IADLS. 10/04/22: Pt is two months s/p fall/fracture today. Pt reports some increased soreness yesterday with attempt of stretching at home, unsure as to why, questions angle on couch vs bed. Pt denied sx following last session or the next day after last session. Pt encouraged stretching shoulder in zone of stretch and the importance of avoiding pain with mobility. Positive early response to tape expressed post application in the office. 10/01/22: Improving AAROM flexion with aide of R UE for support. Pt continues to exhibit decreased AROM of elbow extension with ambulation ~-10 degrees encouraged gentle relaxation awareness of this at home. He continues to report prn use of sling for sleep, encouraged gradual weaning from this. 09/27/22: Improving PROM tolerance for L shoulder. Pt reports tapering use of sling, advised/reiterated goal of weaning use. Pt expressed ease of stretching with use of MHP pre, ice post. Denies any sharp pain. 09/20/22: PROM ~40 degrees of flexion. Pt has reported tapering use of sling, presents to office wearing sling. Increasing awareness of relaxed elbow extension with arms by side vs holding guarded arm with shoulder add/IR. Pt is a RHD active, 67 y/o male with PMHS significant for cardiac history, DMII, HTN, referred to PT s/p history of fall while skiing on 08/06/22 resulting in nondisplaced closed proximal humeral fracture. Pt exhibits decreased AROM/AAROM/PROM of the L shoulder, impaired strength, presence of pain, and impaired functional use driving/dressing/lifting UE due to injury. Pt was seen in a hospital in [place] immediately following injury (brought to hospital by individual who witnessed fall) which resulted in an overnight stay out of state when family had to come get him due to inability to drive . Upon D/C from ER setting patient established care with [facility] orthopedics, underwent xray indicated mild callus formation over fracture and was cleared to start PT on 09/12/22 with instruction: gentle ROM/ periscap stabilization [facility] office notes from 09/12/22 stated clearance to D/C sling as able. Pt currently expresses decreased tolerance for sleep positions. Pt was educated re: gentle painfree passive pendulums, gentel isometric scapular retraction, goal of relaxing arm by side when out of sling, goal of GENTLE painfree table slide with aide of R UE. Pt was also educated in the benefit of icing to reduce discomfort in the shoulder. Post evaluation we reviewed positioning of the sling and benefit in using it for support when leaving the home or when in a busy environment. Pt to be seen in PT twice weekly. Pt was informed of option of being able to obtain transportation for him to and from appointments. Pt will be seen in PT twice weekly. Pt also reports history of calcified clot in L medial knee- reports seeing vascular/hvac r instructor for this with next appt set for November. They have been monitoring his sx when this was discovered in the fall. He reports bypass was discussed in cardiology in the past but was not elected due to his high activity level and patient expresses concern for this status due to now increased immobility. Pt is scheduled to see his PCP and reports has an appt with nurse navigator for DMII education later this week. PT Plan: GENTLE ROM, periscap strength NWB L UE DOI 08/06/22 closed proximal humeral fracture Short Term Goals: 1. Demonstrate safety/joint protection in use of sling, weaning from sling. 2. Painfree gentle AAROM L flexion to 90. 3. Initiate scapular stabilization program exercises. 4. Educate patient in self care management techniques. Group Home Goals: 1. I HEP. 2. AAROM L shoulder flexion to 130 to don jacket/sleeve as tolerated. 3. Initiate gentle strength program once ortho office clears for strengthening. 4. AAROM IR to midline L3 as fracture heals/pain is reduced. 5. Resume driving prolonged distances, self care MOD I. 6. Improve SPADI score by 50%. 7. I HEP with good understanding joint protection. 8. MOD I self care/household tasks. Electronically signed by: Kathleen Tavera, PT, DPT
== END 2023-07-01 11:23 | disposition home or self-care (01) ==
LOC: HO.PTWFD 08:00
PROVIDERS: Visit Provider Physician Assistant
DX: S42.202A Unspecified fracture of upper end of left humerus, initial encounter for closed fracture (principal)
CPT/HCPCS: 97110; 97140; 97150; 97163; 97535

== ENCOUNTER 2022-12-26 07:31 | Outpatient (REF) | payer MEDICARE, SELFPAY ==
[2022-12-26 11:26] LABS: Alanine Aminotransferase 23 U/L (0-40); Albumin Level 4.5 g/dL (3.5-5.0); Alkaline Phosphatase 73 U/L (39-117); Anion Gap 15 (12-20); Aspartate Amino Transferase 26 U/L (5-37); Bilirubin Total 1.2 mg/dL (0.0-1.0); Blood Urea Nitrogen 12 mg/dL (9-16); Calcium 9.7 mg/dL (8.4-10.2); Carbon Dioxide 24 mmol/L (22-29); Chloride 106 mmol/L (96-108); Estimated Glomerular Filt Rate > 60; Glucose Random 109 mg/dL (60-115); Potassium 4.1 mmol/L (3.3-5.1); Sodium 141 mmol/L (135-145); Total Protein 7.7 g/dL (6.5-8.0)
[2022-12-26 11:46] LABS: Vitamin D 25-OH Total 68.7 ng/mL (>30)
== END 2022-12-26 07:32 | disposition home or self-care (01) ==
LOC: HO.WFDLDS 07:31
PROVIDERS: Visit Provider Family Medicine
DX: E11.9 Type 2 diabetes mellitus without complications (principal); E55.9 Vitamin D deficiency, unspecified
CPT/HCPCS: 36415; 80053; 82306

== ENCOUNTER 2023-03-25 10:36 | Outpatient (AMB) | payer MEDICARE, SELFPAY ==
--- NOTE | 2023-03-25 10:43 | A.OFFPC_ITS ---
Vital Signs 03/25/23 10:45 Height 5 ft 10 in Weight 175 lb 8 oz BMI 25.2 BP 118/58 L Blood Pressure Location Lt brachial Position Sitting Pulse 82 Pulse Source Pulse Oximeter Pulse Oximetry (%) 98 Oxygen Delivery Method Room Air Intake Visit Reasons: f/u diabetes and hypertension Intake Note: Patient is here for diabetes and hypertension. Allergies environmental allergies Allergy (Mild, Verified 03/25/23 10:47) itchy, watery eyes, sneezing, coughing. Tobacco use date assessed: 03/25/23 Fall risk assessment: 1 Fall in past year Last assessed Fall Risk: 03/25/23 Dental Screening Dental Screen Date: 03/25/23 Did you have a dental visit in the last 12 months?: Yes Did you have a dental problem in the last 6 months where you did not have access to dental care?: No Was dental information given to patient?: Patient has dentist HPI f/u diabetes and hypertension HPI Details 67 y/o male presents to f/u diabetes and hypertension. Last A1c 12/26/22 was 6.6%. A1c today 03/25/23 is 6.6%. He is on Januvia 100mg and metformin 500mg b.i.d. Blood pressure today is 118/58. He is on lisinopril 10mg daily and metoprolol 25mg daily. Pt notes that when he plays pickle ball sometimes he has been experiencing L heel pain, worse with exercise/sports. ON LICENSE OF [facility] Medical History History of Mohs micrographic surgery for skin cancer Surgical History History of tooth extraction History of bone graft No pertinent past surgical history Family History Other No pertinent family history Social History Housing: House Alcohol intake: current Alcohol intake frequency: holidays/special occasions only Patient Tobacco Use Status: Current everyday Tobacco user Tobacco use type: Cigarette Cigarette Packs Per Day: 1 Years Smoked: 45 Packs Per Year: 45 e-Cigarette/Vaping Use: Never Used Second Hand Smoke Exposure: No service: No Current occupational status: retired Current occupation: right handed Current occupational exposures/hazards: No Cognitive needs: No Hearing needs: No Vision needs: No Questionnaire Thrive Questionnaire Date Thrive assessed: 09/26/22 NIGHAT-7 AMB Questionnaire NIGHAT-7 Date NIGHAT - 7 assessed: 09/26/22 Source: Developed by Drs. Rupert Milton, Diane Putnam, Mac Hamilton and colleagues, with an educational lolis from [employer]. Review of Systems Const Denies chills, Denies fatigue, Denies fever(s), Denies headache(s) and Denies weakness ENT Denies dizziness and Denies headache(s) Card Denies chest pain, Denies lightheadedness, Denies dyspnea and Denies other (Palpitations) Resp Denies cough, Denies dyspnea, Denies wheezing and Denies other ( shortness of breath) Musc Details: L plantar heel pain Denies numbness and Denies tingling Neuro Denies dizziness, Denies headache(s), Denies numbness, Denies tingling, Denies paresthesias and Denies weakness Psych Denies anxiety and Denies depression Endo Denies fatigue Aller/Immun Denies wheezing Physical exam (Primary Care) Vital Signs: Last Vital Signs Pulse 82 03/25/23 10:45 BP 118/58 L 03/25/23 10:45 Pulse Ox 98 03/25/23 10:45 Oxygen Delivery Method Room Air 03/25/23 10:45 BMI result Body Mass Index 25.2 Tobacco/Smoking Status: Tobacco use Status Tobacco use date assessed 03/25/23 03/25/23 10:55 Patient Tobacco Use Status Current everyday Tobacco 03/25/23 10:55 Tobacco use type Cigarette 03/25/23 10:55 e-Cigarette/Vaping Use Never Used 03/25/23 10:55 Thrive Assessment: Date of Thrive Assessment Date Thrive assessed 09/26/22 03/25/23 10:55 Const General: no acute distress and well developed Nutritional Appearance: well nourished Orientation/consciousness: patient oriented x3 HENMT Head: Yes normocephalic and Yes atraumatic Eyes General: appearance normal, both eyes and all related structures Pupils: Equal, round and reactive pupils present EOM: EOMs intact bilaterally Resp Effort & Inspection: normal respiratory effort Auscultation: clear to auscultation bilaterally Cardio Rate: regular rate Rhythm: regular rhythm Heart sounds: S1 normal heart sound present, S2 normal heart sound present, no gallops, no murmurs and no rubs Neuro General: patient oriented x3 and gait normal Cranial nerves: Yes Equal, round and reactive pupils present Psych Affect: normal affect Results AMB Hemoglobin A1c AMB Hemoglobin A1c 6.6 % Last Edit by Jory Suarez CMA on 03/25/23 11:06 Results Reviewed Results Reviewed: Laboratory Last Values Hgb A1c (Clinic) 6.6 % (4.0-6.0) H 03/25/23 11:06 Assessment and Plan Assessment & Plan (1) Diabetes type 2, controlled: Code(s): E11.9 - Type 2 diabetes mellitus without complications Plan: A1c again 6.6% which is good control Continue current medication regimen, continue diabetic diet and exercise Maintain weight (2) Essential hypertension: Code(s): I10 - Essential (primary) hypertension Plan: Blood pressure is well controlled. Goal is less than 130/80 for patient with AAA Continue current medication regimen Continue exercise and weight control (3) CAD (coronary artery disease): Code(s): I25.10 - Atherosclerotic heart disease of [place] coronary artery without angina pectoris Plan: Stable (4) Heel pain: Code(s): M79.673 - Pain in unspecified foot Plan: Left plantar-surface heel pain and some Achilles tendon tightness Demonstrated exercises he can try. Also recommended ice/heat and can use some NSAIDs He can also consider heel risers/heel cup If not improving will consider imaging and referral to Podiatry or Ortho/sports medicine Orders: Orders AMB Hemoglobin A1c Today Z13.9 - Encounter for screening, unspecified Coding Level of Care Code Est Pt Level 4 (84011) Diagnoses Diabetes type 2, controlled E11.9 Essential hypertension I10 CAD (coronary artery disease) I25.10 Heel pain M79.673
[2023-03-25 10:45] VITALS: BP 118/58; PULSE 82; O2SAT 98; BMI 25.2
== END 2023-03-25 11:57 | disposition home or self-care (01) ==
PROVIDERS: PCP Family Medicine; Visit Provider Family Medicine
DX: E11.9 Type 2 diabetes mellitus without complications (principal); I10 Essential (primary) hypertension; I25.10 Atherosclerotic heart disease of native coronary artery without angina pectoris; M79.672 Pain in left foot
CPT/HCPCS: 83036; 99214

== ENCOUNTER 2023-06-13 07:46 | Outpatient (REF) | payer MEDICARE, SELFPAY ==
[2023-06-13 11:10] LABS: MANUAL DIFF FLAG NO
[2023-06-13 11:19] LABS: Appearance Urine Clear; Color Urine Yellow; Glucose Urine UA Negative (Negative); Leukocyte Esterase Urine Negative (Negative); Nitrite Urine Negative (Negative); Urine Blood Negative (Negative); Urine Ketones Negative (Negative); Urine Protein Negative (Neg-Trace)
[2023-06-13 11:43] LABS: Basophils Absolute Auto 0.1 X10*3/uL (0.0-0.2); Basophils Percent Auto 1.5 % (0-2); Eosinophils Absolute Auto 0.3 X10*3/uL (0.0-0.4); Eosinophils Percent Auto 3.4 % (0-4); Hematocrit 47.5 % (42.0-52.0); Imm Gran Abs Auto 0.02 X10*3/uL (0.00-0.03); Imm Gran Pct Auto 0.2 % (0.0-0.4); Lymphocytes Absolute Auto 2.6 X10*3/uL (1.2-4.9); Lymphocytes Percent Auto 31.9 % (20-40); Mean Corpuscular HGB Conc 33.7 g/dl (31.0-36.0); Mean Corpuscular Hemoglobin 31.9 pg (27.0-33.0); Mean Corpuscular Volume 94.6 fL (80.0-98.0); Mean Platelet Volume 10.1 fL (9.4-12.4); Monocytes Absolute Auto 0.6 X10*3/uL (0.1-1.2); Monocytes Percent Auto 7.5 % (2-11); Neutrophils Absolute Auto 4.5 x10*3/uL (2.0-8.3); Neutrophils Percent Auto 55.5 % (45-73); Platelet Count 247 X10*3/uL (160-400); Red Blood Count 5.02 X10*6/uL (4.60-5.80); Red Cell Distribution Width 12.9 % (11.0-16.0); White Blood Count 8.1 X10*3/uL (4.8-10.8)
[2023-06-13 12:22] LABS: Prostate Specific Antigen Scr 0.78 ng/mL (<0.05-4.0)
[2023-06-13 12:25] LABS: Alanine Aminotransferase 19 U/L (0-40); Albumin Level 4.4 g/dL (3.5-5.0); Alkaline Phosphatase 62 U/L (39-117); Anion Gap 13 (12-20); Aspartate Amino Transferase 20 U/L (5-37); Bilirubin Total 0.8 mg/dL (0.0-1.0); Blood Urea Nitrogen 15 mg/dL (9-16); Calcium 9.6 mg/dL (8.4-10.2); Carbon Dioxide 24 mmol/L (22-29); Chloride 107 mmol/L (96-108); Cholesterol 113 mg/dL (<200); Estimated Glomerular Filt Rate > 60; Glucose Fasting 117 mg/dL (60-99); HDL Cholesterol 32 mg/dL (>40); LDL Cholesterol Calculated 71 mg/dL (<100); Potassium 4.4 mmol/L (3.3-5.1); Sodium 140 mmol/L (135-145); Total Protein 7.5 g/dL (6.5-8.0); Triglycerides 50 mg/dL (<150)
[2023-06-13 12:29] LABS: TSH reflex Free T4 1.37 uIU/mL (0.32-4.0)
[2023-06-13 12:36] LABS: Creatinine Urine 128.55 mg/dL; Microalbumin Urine < 5.0 mg/L
== END 2023-06-13 07:47 | disposition home or self-care (01) ==
LOC: HO.WFDLDS 07:46
PROVIDERS: Visit Provider Family Medicine
DX: Z00.00 Encounter for general adult medical examination without abnormal findings (principal); Z12.5 Encounter for screening for malignant neoplasm of prostate; I10 Essential (primary) hypertension
CPT/HCPCS: 36415; 80053; 80061; 81003; 82043; 82570; 84153; 84443; 85025

== ENCOUNTER 2023-06-16 11:51 | Outpatient (AMB) | payer MEDICARE, SELFPAY ==
--- NOTE | 2023-06-16 11:58 | MHC.PC.OV ---
Vital Signs 06/16/23 12:00 Height 5 ft 10 in Weight 175 lb BMI 25.1 BP 126/58 L Blood Pressure Location Rt brachial Position Sitting Respiration 13 Pulse 73 Pulse Source Pulse Oximeter Pulse Oximetry (%) 97 Oxygen Delivery Method Room Air Intake Visit Reasons: Annual Physical Intake Note: Patient is here for his physical and he would like to discuss left heel pain and ask if the RSV vaccine is recommended for him. Rv Servicer Required: No Accompanied by: Self / Same As Patient Allergies environmental allergies Allergy (Mild, Verified 06/16/23 12:04) itchy, watery eyes, sneezing, coughing. Tobacco use date assessed: 03/25/23 Fall risk assessment: 1 Fall in past year Last assessed Fall Risk: 06/16/23 HPI Annual Physical HPI Details 67 y/o male presents for a CPE with f/u labs and health maintenance. Labs were drawn 06/13/23. Reviewed labs with pt. Triglycerides 50. TC 113. LDL 71. HDL low at 32. Last A1c 03/25/23 6.6%. Blood pressure today 126/58. Pt has complaints of L heel pain. [facility] Medical History History of Mohs micrographic surgery for skin cancer Surgical History History of tooth extraction History of bone graft No pertinent past surgical history Social History Household Members: Spouse Housing: House Alcohol intake: current Alcohol intake frequency: holidays/special occasions only Alcohol type: beer Patient Tobacco Use Status: Current everyday Tobacco user Tobacco use type: Cigarette Cigarette Packs Per Day: 1 Years Smoked: 45 e-Cigarette/Vaping Use: Never Used Second Hand Smoke Exposure: No service: No Current occupational status: retired Current occupation: right handed Current occupational exposures/hazards: No Sexual orientation: Unable to collect Gender identity: Unable to collect Cognitive needs: No Hearing needs: No Vision needs: No Questionnaire PHQ-9 Over the last 2 weeks, how often have you been bothered by any of the following problems? 1. Little interest or pleasure in doing things: not at all 2. Feeling down, depressed, or hopeless: not at all 3. Trouble falling or staying asleep, or sleeping too much: not at all 4. Feeling tired or having little energy: not at all 5. Poor appetite or overeating: not at all 6. Feeling bad about yourself - or that you are a failure or have let yourself or your family down: not at all 7. Trouble concentrating on things, such as reading the newspaper or watching television: not at all 8. Moving or speaking so slowly that other people could have noticed. Or the opposite - being so fidgety or restless that you have been moving around a lot more than usual: not at all 9. Thoughts that you would be better off or of hurting yourself in some way: not at all Total score: 0 Depression Screening Interpretation: Negative Depression Screening Done: Yes 40306 - PHQ-9 Billing: Yes Source: Developed by Drs. Rupert Milton, Diane Putnam, Mca Hamilton and colleagues, with an educational lolis from [employer]. Thrive Questionnaire Date Thrive assessed: 06/16/23 I am a: Patient What is your living situation today?: I have a steady place to live Within the past 12 months, did the food you bought not last and you didn't have the money to get more?: Never true Within the past 12 months, did you worry whether your food would run out before you got money to buy more?: Never true Do you have trouble paying for medicines?: No Do you have trouble getting transportation to medical appointments?: No Do you have trouble paying your heating and electricity bill?: No Do you have trouble taking care of your child, family member or friend?: No Do you have trouble with day-to-day activities such as bathing, preparing meals, shopping, managing finances, etc.?: No Are you currently unemployed and looking for a job?: No Are you interested in more education?: No Please select the resources that you would like help with: None Currently or been in a relationship where the following occur: no concerns reported AUDIT C Alcohol Use Questionnaire (AUDIT-C) 1. How often do you have a drink containing alcohol?: Never 3. How often do you have six or more drinks on one occasion?: Never Total Score: 0 NIGHAT-7 AMB Questionnaire NIGHAT-7 Date NIGHAT - 7 assessed: 06/16/23 Feeling nervous, anxious, or on edge: 0 = Not at all Not being able to stop or control worryin = Not at all Worrying too much about different things: 0 = Not at all Trouble relaxin = Not at all Being so restless that it is hard to sit still: 0 = Not at all Becoming easily annoyed or irritable: 0 = Not at all Feeling afraid as if something awful might happen: 0 = Not at all Total NIGHAT-7 score (0-4 normal; 5-9 mild; 10-14 moderate; 15-21 severe): 0 Source: Developed by Drs. Rupert Milton, Diane Putnam, Mac Hamilton and colleagues, with an educational lolis from [employer]. NIGHAT-7 Assessment Billing NIGHAT-7 Assessment Tool: NIGHAT-7 Assessment 29863 Review of Systems Const Denies chills, Denies fatigue, Denies fever(s), Denies headache(s) and Denies weakness Eyes Denies change in vision ENT Denies dizziness, Denies headache(s), Denies hearing loss, Denies nasal congestion, Denies sinus pain, Denies sinus pressure and Denies sore throat Card Denies chest pain, Denies lightheadedness, Denies dyspnea and Denies other (palpitations) Resp Denies cough, Denies dyspnea and Denies wheezing GI Denies abdominal pain, Denies melena, Denies hematochezia, Denies change in bowel habits, Denies dyspepsia and Denies nausea Denies hematuria and Denies dysuria Musc Details: L heel pain Denies abnormal gait, Denies myalgias, Denies arthralgias, Denies numbness and Denies tingling Skin/Breast Denies rash, Denies unusual bruising and Denies wounds Neuro Denies abnormal gait, Denies dizziness, Denies headache(s), Denies memory loss, Denies numbness, Denies Sensory deficit (Neuro), Denies tingling and Denies weakness Psych Denies anxiety, Denies depression and Denies memory loss Endo Denies cold intolerance, Denies fatigue, Denies heat intolerance, Denies polydipsia and Denies polyuria Jareth/Lymph Denies easy bleeding and Denies easy bruising Aller/Immun Denies wheezing Physical exam (Primary Care) Vital Signs: Last Vital Signs Pulse 73 06/16/23 12:00 Resp 13 06/16/23 12:00 BP 126/58 L 06/16/23 12:00 Pulse Ox 97 06/16/23 12:00 Oxygen Delivery Method Room Air 06/16/23 12:00 BMI result Body Mass Index 25.1 Tobacco/Smoking Status: Tobacco use Status Tobacco use date assessed 03/25/23 06/16/23 12:11 Patient Tobacco Use Status Current everyday Tobacco 06/16/23 12:11 Tobacco use type Cigarette 06/16/23 12:11 e-Cigarette/Vaping Use Never Used 06/16/23 12:11 PHQ-9: PHQ-9 Score PHQ-9: Total score 0 06/16/23 12:51 Depression Screening Interpretation: Negative Thrive Assessment: Date of Thrive Assessment Date Thrive assessed 06/16/23 06/16/23 12:11 Currently or been in a relationship where the following occur: no concerns reported Const General: no acute distress, well developed, alert and awake Nutritional Appearance: well nourished Orientation/consciousness: patient oriented x3 HENMT Head: Yes normocephalic and Yes atraumatic Ears: hearing grossly normal bilaterally and TM's normal bilaterally General nose exam: Normal external nose present and Normal nares present Mouth: Normal oral and palatal mucosa present and moist mucous membranes Teeth and gingiva: dentition normal Throat: Yes posterior oropharynx normal Eyes General: appearance normal, both eyes and all related structures Pupils: Equal, round and reactive pupils present and Pupil accommodation reflex normal EOM: EOMs intact bilaterally Neck Neck: Yes normal visual inspection, Yes no lymphadenopathy and Yes trachea midline Thyroid: Thyroid normal Carotids: no bruits Lymphatic: no lymphadenopathy noted Chest Chest palpation & inspection: normal inspection of the chest Resp Effort & Inspection: normal respiratory effort Auscultation: clear to auscultation bilaterally Cardio Rate: regular rate Rhythm: regular rhythm Heart sounds: S1 normal heart sound present, S2 normal heart sound present, no gallops, no murmurs and no rubs Bruits: no abdominal aortic bruits and no carotid bruits GI Palpation (GI): No Abdominal aortic bruit present, Soft to palpation, nontender, No hepatosplenomegaly present and No Rebound tenderness present Auscultation: normal bowel sounds General: Yes no CVA tenderness Back/Spine/Pelvis Back: no CVA tenderness Cervical Spine: cervical ROM normal and No Cervical spine tenderness Thoracic/Lumbar Spine: thoraco-lumbar ROM normal, No pain with thoraco-lumbar ROM, No thoracic spinal tenderness and No lumbar spinal tenderness Skin Lesions: no lesions Rashes: no rashes Trauma: no lacerations or abrasions Wounds: no wounds Nails: normal Neuro General: patient oriented x3 Cranial nerves: Yes Equal, round and reactive pupils present Cognition (Neuro): normal cognition Gait exam (Neuro): Normal gait present Motor exam (neuro): 5/5 motor strength present throughout Sensory Exam: No Sensory deficit (Neuro) Deep tendon reflexes (DTR's): Right patellar reflex intensity grade: 2+ and Left patellar reflex intensity grade: 2+ Extrem General: Yes normal to inspection and No edema Psych Appearance: grossly normal Affect: normal affect Attitude: cooperative Thought process: Normal thought process present Assessment and Plan Assessment & Plan (1) Adult general medical exam: Code(s): Z00.00 - Encounter for general adult medical examination without abnormal findings Plan: 67-year-old?male?presents?for?complete?physical?exam (2) Diabetes type 2, controlled: Code(s): E11.9 - Type 2 diabetes mellitus without complications Plan: A1c?showed?good?control?at?most?recent?test;?6.6%.??Goal?is?less?than?7.0% Taking?medication?as?prescribed. Continue?current?medication?regimen (3) Essential hypertension: Code(s): I10 - Essential (primary) hypertension Plan: Blood?pressure?is?controlled.??Goal?is?less?than?130/80.??History?of?AAA Continue?current?medication?regimen (4) CAD (coronary artery disease): Code(s): I25.10 - Atherosclerotic heart disease of [place] coronary artery without angina pectoris Plan: Stable Follow-up?with?Cardiology?as?recommended (5) Heel pain: Code(s): M79.673 - Pain in unspecified foot Plan: Likely?plantar?fasciitis Demonstrated?exercises Also?recommended?relative?rest?and?ice/heat He?will?let?me?know?if?not?improving (6) Screening for colon cancer: Code(s): Z12.11 - Encounter for screening for malignant neoplasm of colon Plan: Patient?thinks?his?last?colonoscopy?was?close?to?10?years?ago. 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 (10) Hyperlipidemia, mixed: Code(s): E78.2 - Mixed hyperlipidemia Plan: LDL?71?and?goal?is?less?than?70 Encouraged?diet?low?in?saturated?fats?and?cholesterol HDL?mildly?low. Continue?exercise (11) Low HDL (under 40): Code(s): E78.6 - Lipoprotein deficiency Plan: As?above (12) PAD (peripheral artery disease): Comment: 05/22/2022 - diagnostic angiogram Code(s): I73.9 - Peripheral vascular disease, unspecified Plan: Follow-up?with??as?recommended Continue?exercise Coding Level of Care Code Est Pt Level 4 (54553) Est Pt Prev Care >65y(44414) Diagnoses Adult general medical exam Z00.00 Diabetes type 2, controlled E11.9 Essential hypertension I10 CAD (coronary artery disease) I25.10 Heel pain M79.673 Screening for colon cancer Z12.11 Screening for prostate cancer Z12.5 Immunization counseling Z71.89 Neoplasm of uncertain behavior of skin D48.5 Hyperlipidemia, mixed E78.2 Low HDL (under 40) E78.6 PAD (peripheral artery disease) I73.9 Additional Codes NIGHAT-7 Assessment Billing - NIGHAT-7 Assessment Tool: NIGHAT-7 Assessment 24759 ([id number])
[2023-06-16 12:00] VITALS: BP 126/58; PULSE 73; RESP 13; O2SAT 97; BMI 25.1
== END 2023-06-16 12:45 | disposition home or self-care (01) ==
PROVIDERS: PCP Family Medicine; Visit Provider Family Medicine
DX: Z00.00 Encounter for general adult medical examination without abnormal findings (principal); E11.51 Type 2 diabetes mellitus with diabetic peripheral angiopathy without gangrene; I73.9 Peripheral vascular disease, unspecified; I10 Essential (primary) hypertension; I25.10 Atherosclerotic heart disease of native coronary artery without angina pectoris; M79.672 Pain in left foot; Z71.89 Other specified counseling; D48.5 Neoplasm of uncertain behavior of skin; E78.2 Mixed hyperlipidemia; E78.6 Lipoprotein deficiency
CPT/HCPCS: 99397

== ENCOUNTER 2023-09-17 15:39 | Outpatient (AMB) | payer MEDICARE, SELFPAY ==
[2023-09-17 15:47] VITALS: BP 128/68; PULSE 60; O2SAT 98; BMI 25.9
--- NOTE | 2023-09-17 15:47 | A.OFFPC_ITS ---
Vital Signs 09/17/23 15:47 Height 5 ft 10 in Weight 180 lb 4 oz BMI 25.9 BP 128/68 Blood Pressure Location Lt brachial Position Sitting Pulse 60 Pulse Oximetry (%) 98 Oxygen Delivery Method Room Air Intake Visit Reasons: 3M f/u diabetes and screenings for colon cancer Intake Note: Patient is here for folow up on diabetes and screening for colon cancer. Allergies environmental allergies Allergy (Mild, Verified 06/16/23 12:04) itchy, watery eyes, sneezing, coughing. Tobacco use date assessed: 03/25/23 HPI 3M f/u diabetes and screenings for colon cancer HPI Details 68 y/o male presents to f/u diabetes and colon cancer screening. Last A1c 03/25/23 6.6%. He reports recent eye exam showed no diabetic retinopathy. He denies any calluses/injuries on his feet. A1c today 09/17/23 is 6.9%. He is on metformin 500mg Blood pressure today 128/68. He is on metoprolol 25mg, lisinopril 10mg daily. [facility] Medical History History of Mohs micrographic surgery for skin cancer Surgical History History of tooth extraction History of bone graft No pertinent past surgical history Social History Household Members: Spouse Housing: House Alcohol intake: current Alcohol intake frequency: holidays/special occasions only Alcohol type: beer Patient Tobacco Use Status: Current everyday Tobacco user Tobacco use type: Cigarette Cigarette Packs Per Day: 1 Years Smoked: 45 e-Cigarette/Vaping Use: Never Used Second Hand Smoke Exposure: No service: No Current occupational status: retired Current occupation: right handed Current occupational exposures/hazards: No Sexual orientation: Unable to collect Gender identity: Unable to collect Cognitive needs: No Hearing needs: No Vision needs: No Questionnaire Thrive Questionnaire Date Thrive assessed: 06/16/23 NIGHAT-7 AMB Questionnaire NIGHAT-7 Date NIGHAT - 7 assessed: 06/16/23 Source: Developed by Drs. Rupert Milton, Diane Putnam, Mac Hamilton and colleagues, with an educational lolis from [employer]. Review of Systems Const Denies chills, Denies fatigue, Denies fever(s), Denies headache(s) and Denies weakness ENT Denies dizziness and Denies headache(s) Card Denies dyspnea Resp Denies cough, Denies dyspnea, Denies wheezing and Denies other (shortness of breath) Musc Denies numbness and Denies tingling Neuro Denies dizziness, Denies headache(s), Denies numbness, Denies tingling and Denies weakness Psych Denies anxiety and Denies depression Endo Denies fatigue Aller/Immun Denies wheezing Physical exam (Primary Care) Vital Signs: Last Vital Signs Pulse 60 09/17/23 15:47 BP 128/68 09/17/23 15:47 Pulse Ox 98 09/17/23 15:47 Oxygen Delivery Method Room Air 09/17/23 15:47 BMI result Body Mass Index 25.9 Tobacco/Smoking Status: Tobacco use Status Tobacco use date assessed 03/25/23 09/17/23 15:48 Patient Tobacco Use Status Current everyday Tobacco 09/17/23 15:48 Tobacco use type Cigarette 09/17/23 15:48 e-Cigarette/Vaping Use Never Used 09/17/23 15:48 Thrive Assessment: Date of Thrive Assessment Date Thrive assessed 06/16/23 09/17/23 15:48 Const General: well developed; No acute distress Nutritional Appearance: well nourished Orientation/consciousness: patient oriented x3 HENMT Head: Yes normocephalic and Yes atraumatic Eyes General: appearance normal, both eyes and all related structures Pupils: Equal, round and reactive pupils present EOM: EOMs intact bilaterally Resp Effort & Inspection: normal respiratory effort Auscultation: clear to auscultation bilaterally Cardio Rate: regular rate Rhythm: regular rhythm Heart sounds: S1 normal heart sound present, S2 normal heart sound present, no gallops, no murmurs and no rubs Neuro General: patient oriented x3 and gait normal Cranial nerves: Yes Equal, round and reactive pupils present Psych Affect: normal affect Assessment and Plan Assessment & Plan (1) Diabetes type 2, controlled: Code(s): E11.9 - Type 2 diabetes mellitus without complications Plan: A1c?climbed?from?6.6%?to?6.9%.??Still?at?goal?of?less?than?7.0%. No?change?in?medications?but?I?recommended?continued?work?at?a?diet?lower?in?sug ars?and?starches Encouraged?exercise?and?weight?control (2) Essential hypertension: Code(s): I10 - Essential (primary) hypertension Plan: Blood?pressure?is?controlled. ??Goal?is?less?than?130/80?due?to?coronary?artery?disease?and?AAA. Continue?current?medications (3) CAD (coronary artery disease): Code(s): I25.10 - Atherosclerotic heart disease of [place] coronary artery without angina pectoris Plan: Stable (4) Screening for colon cancer: Code(s): Z12.11 - Encounter for screening for malignant neoplasm of colon Plan: Correspondence?implies?his ?last?colonoscopy?was?about?9?years?ago?at[facility]?but?we?still?do?not?val[place] ve?the?report. Requesting?report?again We?can?follow-up?at?next?visit Orders: Orders AMB Hemoglobin A1c Today Z13.9 - Encounter for screening, unspecified Coding Level of Care Code Est Pt Level 4 (62279) Diagnoses Diabetes type 2, controlled E11.9 Essential hypertension I10 CAD (coronary artery disease) I25.10 Screening for colon cancer Z12.11
== END 2023-09-17 16:18 | disposition home or self-care (01) ==
PROVIDERS: PCP Family Medicine; Visit Provider Family Medicine
DX: E11.9 Type 2 diabetes mellitus without complications (principal); I10 Essential (primary) hypertension; I25.10 Atherosclerotic heart disease of native coronary artery without angina pectoris; Z12.11 Encounter for screening for malignant neoplasm of colon
CPT/HCPCS: 99214

== ENCOUNTER 2023-12-03 14:05 | Outpatient (REF) | payer MEDICARE, SELFPAY ==
--- NOTE | ~2023-12-03 | US_ITS ---
EXAMINATION: NONINVASIVE ASSESSMENT OF THE ARTERIES OF BOTH LOWER EXTREMITIES WITH PVR EXAM AND BILATERAL LOWER EXTREMITY DUPLEX Brie Saini MD CLINICAL INFORMATION: Peripheral vascular disease TECHNIQUE: Ankle pulse volume recordings, ankle pressure measurements and ankle brachial indices were obtained of the lower extremity arterial system bilaterally in addition to duplex Doppler techniques with wave form analysis and measurement of velocities in the common femoral, profunda femoral, superficial femoral, popliteal and tibial arteries. The study was performed only at rest. COMPARISON: Arterial duplex on 11/04/22 FINDINGS: a) AT REST: RIGHT LE. The right ankle-brachial index is: 1.97 * >0.97-1.25 = normal - no significant arterial disease * 0.75-0.96 = mild peripheral arterial disease * 0.5-0.74 = moderate peripheral arterial disease * <0.50 = severe peripheral arterial disease 2. Right ankle pressure: normal. 3. Right ankle PVR waveform: normal. 4. Right direct duplex Doppler findings: Common femoral artery: 125 cm/s, Multiphasic Profunda femoris artery: 74 cm/s, Multiphasic Superficial femoral artery (proximal): 57 cm/s, Multiphasic Superficial femoral artery (mid): 62 cm/s, Multiphasic Superficial femoral artery (distal): 42 cm/s, Multiphasic Proximal Popliteal artery: 46 cm/s, monophasic Mid posterior tibial artery: 46 cm/s, monophasic LEFT LE. The left ankle-brachial index is: 0.74 * >0.97-1.25 = normal - no significant arterial disease * 0.75-0.96 = mild peripheral arterial disease * 0.5-0.74 = moderate peripheral arterial disease * <0.50 = severe peripheral arterial disease 2. Left ankle pressure: normal. 3. Left ankle PVR waveform: normal. 4. Left direct duplex Doppler findings: Common femoral artery: 140 cm/s, Multiphasic Profunda femoris artery: 55 cm/s, Multiphasic Superficial femoral artery (proximal): occluded Superficial femoral artery (mid): occluded Superficial femoral artery (distal): 47 cm/s, monophasic Proximal Popliteal artery: 47 cm/s, monophasic Mid posterior tibial artery: occluded US/US JEAN PIERRE complete IMPRESSION: RIGHT LEG: Elevated JEAN PIERRE suggests significant atherosclerotic disease. Monophasic flow below the knee. LEFT LEG: Moderate peripheral arterial disease. Occluded proximal and mid superficial femoral artery and mid posterior tibial artery.
--- NOTE | ~2023-12-03 | US_ITS ---
EXAMINATION: NONINVASIVE ASSESSMENT OF THE ARTERIES OF BOTH LOWER EXTREMITIES WITH PVR EXAM AND BILATERAL LOWER EXTREMITY DUPLEX Brie Saini MD CLINICAL INFORMATION: Peripheral vascular disease TECHNIQUE: Ankle pulse volume recordings, ankle pressure measurements and ankle brachial indices were obtained of the lower extremity arterial system bilaterally in addition to duplex Doppler techniques with wave form analysis and measurement of velocities in the common femoral, profunda femoral, superficial femoral, popliteal and tibial arteries. The study was performed only at rest. COMPARISON: Arterial duplex on 11/04/22 FINDINGS: a) AT REST: RIGHT LE. The right ankle-brachial index is: 1.97 * >0.97-1.25 = normal - no significant arterial disease * 0.75-0.96 = mild peripheral arterial disease * 0.5-0.74 = moderate peripheral arterial disease * <0.50 = severe peripheral arterial disease 2. Right ankle pressure: normal. 3. Right ankle PVR waveform: normal. 4. Right direct duplex Doppler findings: Common femoral artery: 125 cm/s, Multiphasic Profunda femoris artery: 74 cm/s, Multiphasic Superficial femoral artery (proximal): 57 cm/s, Multiphasic Superficial femoral artery (mid): 62 cm/s, Multiphasic Superficial femoral artery (distal): 42 cm/s, Multiphasic Proximal Popliteal artery: 46 cm/s, monophasic Mid posterior tibial artery: 46 cm/s, monophasic LEFT LE. The left ankle-brachial index is: 0.74 * >0.97-1.25 = normal - no significant arterial disease * 0.75-0.96 = mild peripheral arterial disease * 0.5-0.74 = moderate peripheral arterial disease * <0.50 = severe peripheral arterial disease 2. Left ankle pressure: normal. 3. Left ankle PVR waveform: normal. 4. Left direct duplex Doppler findings: Common femoral artery: 140 cm/s, Multiphasic Profunda femoris artery: 55 cm/s, Multiphasic Superficial femoral artery (proximal): occluded Superficial femoral artery (mid): occluded Superficial femoral artery (distal): 47 cm/s, monophasic Proximal Popliteal artery: 47 cm/s, monophasic Mid posterior tibial artery: occluded US/US arterial duplex LE BI IMPRESSION: RIGHT LEG: Elevated JEAN PIERRE suggests significant atherosclerotic disease. Monophasic flow below the knee. LEFT LEG: Moderate peripheral arterial disease. Occluded proximal and mid superficial femoral artery and mid posterior tibial artery.
== END 2023-12-03 14:06 | disposition home or self-care (01) ==
LOC: HO.US 14:05
PROVIDERS: PCP Family Medicine; Visit Provider Surgery Vascular Surgery
DX: I73.9 Peripheral vascular disease, unspecified (principal)
CPT/HCPCS: 93923; 93925

== ENCOUNTER 2023-12-15 14:24 | Outpatient (AMB) | payer MEDICARE, SELFPAY ==
--- NOTE | 2023-12-15 14:31 | A.OFFPC_ITS ---
Vital Signs 12/15/23 14:32 Height 5 ft 10 in Weight 178 lb BMI 25.5 BP 130/74 Blood Pressure Location Lt brachial Position Sitting Pulse 72 Pulse Source Pulse Oximeter Pulse Oximetry (%) 96 Oxygen Delivery Method Room Air Intake Visit Reasons: f/u diabetes and hypertension Intake Note: Patient is here to follow up on diabetes and hypertension today. Allergies environmental allergies Allergy (Mild, Verified 12/15/23 14:33) itchy, watery eyes, sneezing, coughing. Medication List - Last Reconciled 12/15/23 by Hieu Christina MD aspirin (Adult Aspirin Regimen) 81 mg PO DAILY atorvastatin 40 mg PO DAILY 90 days fenofibrate micronized 134 mg PO DAILY lisinopril 10 mg PO DAILY 90 days metformin ER 500 mg PO BID metoprolol succinate ER 25 mg PO DAILY bdvxzsib-whb-berfz-vit K-lycop 400-20-300 mcg (One-A-Day Men's Multivitamin) tabs PO sitagliptin phosphate (Januvia) 100 mg PO DAILY 90 days vitamin B complex (B Complex-Vitamin B12 tablet) 1 tab PO DAILY Tobacco use date assessed: 03/25/23 Fall risk assessment: No Falls in past year Last assessed Fall Risk: 12/15/23 Dental Screening Dental Screen Date: 12/15/23 Did you have a dental visit in the last 12 months?: Yes Did you have a dental problem in the last 6 months where you did not have access to dental care?: No Was dental information given to patient?: Patient has dentist HPI f/u diabetes and hypertension HPI Details 68 y/o male presents to f/u hypertension , diabetes. Last A1c 09/17/23 6.9%. A1c today 12/15/23 6.2%. Blood pressure today 130/74. He is on metoprolol 25mg, lisinopril 10mg daily. Perpipheral artery disease and pt states he has an appt. with a vascular specialist next month. [facility] Medical History History of Mohs micrographic surgery for skin cancer Surgical History History of tooth extraction History of bone graft No pertinent past surgical history Social History Household Members: Spouse Housing: House Alcohol intake: current Alcohol intake frequency: holidays/special occasions only Alcohol type: beer Patient Tobacco Use Status: Current everyday Tobacco user Tobacco use type: Cigarette Cigarette Packs Per Day: 1 Years Smoked: 45 e-Cigarette/Vaping Use: Never Used Second Hand Smoke Exposure: No service: No Current occupational status: retired Current occupation: right handed Current occupational exposures/hazards: No Sexual orientation: Unable to collect Gender identity: Unable to collect Cognitive needs: No Hearing needs: No Vision needs: No Questionnaire Thrive Questionnaire Date Thrive assessed: 06/16/23 NIGHAT-7 AMB Questionnaire NIGHAT-7 Date NIGHAT - 7 assessed: 06/16/23 Source: Developed by Drs. Rupert Milton, Diane Putnam, Mac Hamilton and colleagues, with an educational lolis from [employer]. Physical exam (Primary Care) Vital Signs: Last Vital Signs Pulse 72 12/15/23 14:32 BP 130/74 12/15/23 14:32 Pulse Ox 96 12/15/23 14:32 Oxygen Delivery Method Room Air 12/15/23 14:32 BMI result Body Mass Index 25.5 Tobacco/Smoking Status: Tobacco use Status Tobacco use date assessed 03/25/23 12/15/23 14:35 Patient Tobacco Use Status Current everyday Tobacco 12/15/23 14:35 Tobacco use type Cigarette 12/15/23 14:35 e-Cigarette/Vaping Use Never Used 12/15/23 14:35 Thrive Assessment: Date of Thrive Assessment Date Thrive assessed 06/16/23 12/15/23 14:35 Results AMB Hemoglobin A1c AMB Hemoglobin A1c 6.2 % Last Edit by Jory Suarez CMA on 12/15/23 14:54 Results Reviewed Results Reviewed: Laboratory Last Values Hgb A1c (Clinic) 6.2 % (4.0-6.0) H 12/15/23 14:53 Assessment and Plan Assessment & Plan (1) Essential hypertension: Code(s): I10 - Essential (primary) hypertension Plan: Blood?pressure?is?fairly?well?controlled.??Goal?is?less?than?130/80 Continue?current?medication (2) Diabetes type 2, controlled: Code(s): E11.9 - Type 2 diabetes mellitus without complications Plan: A1c?is?6.2%.??Goal?is?less?than?7.0% Controlled Continue?current?regimen (3) CAD (coronary artery disease): Code(s): I25.10 - Atherosclerotic heart disease of [place] coronary artery without angina pectoris Plan: Stable Continue?atorvastatin,?aspirin Follow-up?with?Cardiology?as?recommended (4) Low HDL (under 40): Code(s): E78.6 - Lipoprotein deficiency Plan: LDL?is?below?40 Continue?active?lifestyle (5) History of smoking: Code(s): Z87.891 - Personal history of nicotine dependence Plan: Patient?quit?smoking?recently He?qualifies?for?low-dose?CT?scanning?which?we?will?order (6) Hyperlipidemia, mixed: Code(s): E78.2 - Mixed hyperlipidemia Plan: Fairly?well?controlled.??LDL?goal?is?less?than?70 Continue?current?medication?regimen (7) Immunization counseling: Code(s): Z71.89 - Other specified counseling Plan: Due?for?Tdap?which?he?will?receive?today He?says?he?is?up-to-date?with?COVID?shot (8) PAD (peripheral artery disease): Comment: 05/22/2022 - diagnostic angiogram Code(s): I73.9 - Peripheral vascular disease, unspecified Plan: PID?with?some?claudication?which?has?improved?with?exercise We?discussed?cilostazol?but?he?has?an?upcoming?appointment?with?his?vascular?maddie geon?later?this?month. Follow-up?with??as?recommended (9) Neoplasm of uncertain behavior of skin: Code(s): D48.5 - Neoplasm of uncertain behavior of skin Plan: Neoplasm?at?site?of?nose - this?has?been?evaluated?by?dermatology?in?the?past He?says?he?has?own?appointment?with?his?embedded linux engineer?later?this?year. (10) Screening for prostate cancer: Code(s): Z12.5 - Encounter for screening for malignant neoplasm of prostate Plan: PSA?is?within?normal?limits Continue?annual?screening (11) Screening for colon cancer: Code(s): Z12.11 - Encounter for screening for malignant neoplasm of colon Plan: Referred?for?colonoscopy (12) Adult general medical exam: Code(s): Z00.00 - Encounter for general adult medical examination without abnormal findings Plan: 68-year-old?male?presents?for?extended?exam Encouraged?healthy?diet?and?continued?exercise Orders: Orders AMB Hemoglobin A1c Today Z13.9 - Encounter for screening, unspecified Comprehensive [place]. Panel Fast Today Z00.00 - Encounter for general adult medical examination without abnormal findings Complete Blood Count Auto Diff Today Z00.00 - Encounter for general adult medical examination without abnormal findings TSH reflex Free T4 Today Z00.00 - Encounter for general adult medical examination without abnormal findings UA and rflx microscopic Today Z00.00 - Encounter for general adult medical examination without abnormal findings TDaP Immunization Today Z23 - Encounter for immunization Lipid Panel Today Z00.00 - Encounter for general adult medical examination without abnormal findings Microalbumin, Random (w Creat) Today I10 - Essential (primary) hypertension Prostate Specific Antigen Scr Today Z12.5 - Encounter for screening for malignant neoplasm of prostate Referrals Gastroenterology Referral Z12.11 - Encounter for screening for malignant neoplasm of colon Medications: New Boostrix Tdap (diphth,pertus(acell),tetanus) 0.5 mL IM ONCE 0.5 mL 0RF NS Z23 - Encounter for immunization Coding Level of Care Code Est Pt Level 4 (78615) Diagnoses Essential hypertension I10 Diabetes type 2, controlled E11.9 CAD (coronary artery disease) I25.10 Low HDL (under 40) E78.6 History of smoking Z87.891 Hyperlipidemia, mixed E78.2 Immunization counseling Z71.89 PAD (peripheral artery disease) I73.9 Neoplasm of uncertain behavior of skin D48.5 Screening for prostate cancer Z12.5 Screening for colon cancer Z12.11 Adult general medical exam Z00.00
[2023-12-15 14:32] VITALS: BP 130/74; PULSE 72; O2SAT 96; BMI 25.5
== END 2023-12-15 15:42 | disposition home or self-care (01) ==
PROVIDERS: PCP Family Medicine; Visit Provider Family Medicine
DX: E11.9 Type 2 diabetes mellitus without complications (principal); Z23 Encounter for immunization
CPT/HCPCS: 83036; 90471; 90715; 99214

== ENCOUNTER 2024-01-08 08:58 | Outpatient (AMB) | payer MEDICARE, SELFPAY ==
[2024-01-08 09:02] VITALS: BMI 25.5
--- NOTE | 2024-01-08 09:02 | MHC.OFFVIS ---
Vital Signs 01/08/24 09:02 Height 5 ft 10 in Weight 178 lb BMI 25.5 Intake Visit Reasons: 1 yr follow up Art 12/04/23 Intake Note: 1 yr follow up Arterial 12/04/23, pt states bilateral LE are feeling better than last year. Does get foot numbness. Plays tennis and pickleball regularly. Accompanied by: Self / Same As Patient Allergies environmental allergies Allergy (Mild, Verified 01/08/24 09:11) itchy, watery eyes, sneezing, coughing. HPI HPI 1 yr follow up Art 12/04/23: Details: Very pleasant 68-year-old gentleman presents for follow-up evaluation regarding peripheral vascular disease. Did have a diagnostic angiogram back in 2021 which demonstrated a femoral popliteal occlusion. He appears to be well collateralized from that. He remains quite active and plays pickleball. In addition he is taking up tennis. He actually has taken up rollerblading this summer in order to prepare for skiing once again this winter. Now presents for follow-up evaluation with noninvasive testing. [facility] Medical History History of Mohs micrographic surgery for skin cancer Surgical History History of tooth extraction History of bone graft No pertinent past surgical history Social History Household Members: Spouse Housing: House Alcohol intake: current Alcohol intake frequency: holidays/special occasions only Alcohol type: beer Patient Tobacco Use Status: Current everyday Tobacco user Tobacco use type: Cigarette Cigarette Packs Per Day: 1 Years Smoked: 45 e-Cigarette/Vaping Use: Never Used Second Hand Smoke Exposure: No service: No Current occupational status: retired Current occupation: right handed Current occupational exposures/hazards: No Sexual orientation: Unable to collect Gender identity: Unable to collect Cognitive needs: No Hearing needs: No Vision needs: No Review of Systems Const All systems reviewed & are unremarkable except as noted in HPI and below Reports no additional complaints ENT Reports Normal hearing present Card Denies chest pain, Denies chest pain at rest, Denies chest pain with activity and Denies pedal edema Resp Denies cough GI Denies abdominal pain Musc Denies abnormal gait, Denies muscle cramps and Denies radiating pain into limb Skin/Breast Denies skin ulcer and Denies wounds Neuro Reports Normal hearing present and Denies abnormal gait Psych Reports no additional complaints Physical Exam Vital Signs: BMI result Body Mass Index 25.5 Const General: cooperative, healthy appearing and comfortable Orientation/consciousness: oriented to person, oriented to place and oriented to time HEENT Head: Yes normal to inspection Neck Neck: Yes normal visual inspection Carotids: no bruits Chest Chest palpation & inspection: normal inspection of the chest Resp Effort & Inspection: normal respiratory effort and able to speak in complete sentences Auscultation: clear to auscultation bilaterally, no crackles, no rales, no rhonchi and no wheezes Cardio Other: Bilateral DP signals Rate: regular rate Rhythm: regular rhythm Heart sounds: S1 normal heart sound present and S2 normal heart sound present Bruits: no carotid bruits GI Inspection: Yes normal to inspection Skin Wounds: no wounds Hair: normal Neuro General: oriented to person, oriented to place and oriented to time Cranial nerves: Yes CN's II-XII intact bilaterally and Yes Normal hearing present Cognition (Neuro): normal cognition Motor exam (neuro): 5/5 motor strength present throughout Extrem Other: venous exam: No significant superficial varicosities or spider telangiectasias, minimal edema General: No clubbing, No cyanosis and No edema Psych Appearance: grossly normal Mental Status: mental status grossly normal Speech and movement: Normal speech and movement present Results Reviewed Results Reviewed: Noninvasive testing dated 12/03/2023 demonstrates JEAN PIERRE on the right of 1.97 and on the left of 0.74. The right is artifactually elevated. But it does appear to be within similar limits of prior when looking at direct ultrasound. Written report and images were reviewed. Assessment & Plan Assessment & Plan (1) PAD (peripheral artery disease): Comment: 05/22/2022 - diagnostic angiogram Code(s): I73.9 - Peripheral vascular disease, unspecified Category: Medical Plan: In short patient has stable claudication. I did review the pathophysiology of peripheral vascular disease with the patient. In addition we did discuss routine conservative measures including a healthy diet and the importance of exercise and ambulation. We did discuss risk factor modification. The patient will continue to to follow-up with surveillance follow-up in approximately 1 year. Thank you for allowing us to participate in this patient's care. If there are any questions or concerns please do not hesitate to contact us. Orders: Orders US arterial duplex LE BI 1 Year I73.9 - Peripheral vascular disease, unspecified Coding Level of Care Code Est Pt Level 4 (32670) Diagnoses PAD (peripheral artery disease) I73.9
== END 2024-01-08 09:33 | disposition home or self-care (01) ==
LOC: HO.HVS 09:01
PROVIDERS: PCP Family Medicine; Visit Provider Surgery Vascular Surgery
DX: I73.9 Peripheral vascular disease, unspecified (principal)
CPT/HCPCS: 99213

== ENCOUNTER → 2024-01-08 08:58 | Outpatient (BNVA) | payer MEDICARE, SELFPAY | PROVIDERS: PCP Family Medicine; Visit Provider Surgery Vascular Surgery | DX: I73.9 Peripheral vascular disease, unspecified (principal) | CPT/HCPCS: 99212 ==

== ENCOUNTER 2024-03-18 13:28 | Outpatient (AMB) | payer MEDICARE, SELFPAY ==
--- NOTE | 2024-03-18 13:37 | A.OFFPC_ITS ---
Vital Signs 03/18/24 13:39 Height 5 ft 10 in Weight 175 lb 4 oz BMI 25.1 BP 112/50 L Blood Pressure Location Lt brachial Position Sitting Respiration 16 Pulse 71 Pulse Source Pulse Oximeter Temp 97.3 F Temp Source Tympanic Pulse Oximetry (%) 95 Oxygen Delivery Method Room Air Intake Visit Reasons: f/u diabetes, hypertension Intake Note: DM f/u Allergies environmental allergies Allergy (Mild, Verified 03/18/24 13:38) itchy, watery eyes, sneezing, coughing. Medication List - Last Reconciled 03/18/24 by Hieu Christina MD aspirin (Adult Aspirin Regimen) 81 mg PO DAILY atorvastatin 40 mg PO DAILY 90 days fenofibrate micronized 134 mg PO DAILY lisinopril 10 mg PO DAILY 90 days metformin ER 500 mg PO BID metoprolol succinate ER 25 mg PO DAILY uctzxdgv-ksu-ojjbi-vit K-lycop 400-20-300 mcg (One-A-Day Men's Multivitamin) tabs PO sitagliptin phosphate (Januvia) 100 mg PO DAILY 90 days vitamin B complex (B Complex-Vitamin B12 tablet) 1 tab PO DAILY Tobacco use date assessed: 03/25/23 Dental Screening Dental Screen Date: 12/15/23 HPI f/u diabetes, hypertension HPI Details 68 y/o male presents to f/u diabetes, hy pertension. Last A1c 6.2% in December. A1c today 03/18/24 6.5%. He is on metformin 500mg b.i.d, Januvia 100mg. Last diabetic eye exam August. Blood pressure today 112/50. He is on lisinopril 10mg, metoprolol 25mg daily. Continues to f/u with Dr. Lindsey for peripheral artery disease. Stable claudication. HPI Comments History of Present Illness Details Documentation assistance for Hieu Christina MD, was provided by Janes Andrade, [employer] on 03/18/2024 at 2:13 PM EST. I, Dr. Christina, have read, observed, and verified documentation. [facility] Medical History History of Mohs micrographic surgery for skin cancer Surgical History History of tooth extraction History of bone graft No pertinent past surgical history Social History Household Members: Spouse Housing: House Alcohol intake: current Alcohol intake frequency: holidays/special occasions only Alcohol type: beer Patient Tobacco Use Status: Current everyday Tobacco user Tobacco use type: Cigarette Cigarette Packs Per Day: 1 Years Smoked: 45 e-Cigarette/Vaping Use: Never Used Second Hand Smoke Exposure: No service: No Current occupational status: retired Current occupation: right handed Current occupational exposures/hazards: No Sexual orientation: Unable to collect Gender identity: Unable to collect Cognitive needs: No Hearing needs: No Vision needs: No Questionnaire Thrive Questionnaire Date Thrive assessed: 06/16/23 NIGHAT-7 AMB Questionnaire NIGHAT-7 Date NIGHAT - 7 assessed: 06/16/23 Source: Developed by Drs. Rupert Milton, Diane Putnam, Mac Hamilton and colleagues, with an educational lolis from [employer]. Review of Systems Const Denies chills, Denies fatigue, Denies fever(s), Denies headache(s) and Denies weakness ENT Denies dizziness and Denies headache(s) Card Denies dyspnea Resp Denies cough, Denies dyspnea, Denies wheezing and Denies other (shortness of breath) Musc Denies numbness and Denies tingling Neuro Denies dizziness, Denies headache(s), Denies numbness, Denies tingling and Denies weakness Psych Denies anxiety and Denies depression Endo Denies fatigue Aller/Immun Denies wheezing Physical exam (Primary Care) Vital Signs: Last Vital Signs Temp 97.3 F 03/18/24 13:39 Pulse 71 03/18/24 13:39 Resp 16 03/18/24 13:39 BP 112/50 L 03/18/24 13:39 Pulse Ox 95 03/18/24 13:39 Oxygen Delivery Method Room Air 03/18/24 13:39 BMI result Body Mass Index 25.1 Tobacco/Smoking Status: Tobacco use Status Tobacco use date assessed 03/25/23 03/18/24 13:43 Patient Tobacco Use Status Current everyday Tobacco 03/18/24 13:43 Tobacco use type Cigarette 03/18/24 13:43 e-Cigarette/Vaping Use Never Used 03/18/24 13:43 Thrive Assessment: Date of Thrive Assessment Date Thrive assessed 06/16/23 03/18/24 13:43 Const General: well developed; No acute distress Nutritional Appearance: well nourished Orientation/consciousness: patient oriented x3 [facility] Head: Yes normocephalic and Yes atraumatic Eyes General: appearance normal, both eyes and all related structures Pupils: Equal, round and reactive pupils present EOM: EOMs intact bilaterally Resp Effort & Inspection: normal respiratory effort Auscultation: clear to auscultation bilaterally Cardio Rate: regular rate Rhythm: regular rhythm Heart sounds: S1 normal heart sound present, S2 normal heart sound present, no gallops, no murmurs and no rubs Neuro General: patient oriented x3 and gait normal Cranial nerves: Yes Equal, round and reactive pupils present Psych Affect: normal affect Assessment and Plan Assessment & Plan (1) Diabetes type 2, controlled: Code(s): E11.9 - Type 2 diabetes mellitus without complications Plan: A1c?6.5%.??Good?control.??Goal?is?less?than?7.0% Continue?current?medication?regimen Encouraged?diabetic?diet?and?exercise (2) Essential hypertension: Code(s): I10 - Essential (primary) hypertension Plan: Blood?pressure?is?controlled.??Goal?is?less?than?130/80 Blood?pressure?is?a?little?lower?than?his?typical?readings.??He?has?no?lighthea dedness?or?weakness. No?changes?to?blood?pressure?medication?regimen Check?blood?pressures?at?home Hydrate?well (3) PAD (peripheral artery disease): Comment: 05/22/2022 - diagnostic angiogram Code(s): I73.9 - Peripheral vascular disease, unspecified Plan: Stable per?vascular?surgery Follow-up?with?vascular?as?recommended Continue?exercise?and?ambulation Orders: Orders Complete Blood Count Auto Diff 5 Months Z00.00 - Encounter for general adult medical examination without abnormal findings Microalbumin, Random (w Creat) 5 Months I10 - Essential (primary) hypertension Prostate Specific Antigen Scr 5 Months Z12.5 - Encounter for screening for malignant neoplasm of prostate TSH reflex Free T4 5 Months Z00.00 - Encounter for general adult medical examination without abnormal findings Comprehensive [place]. Panel Fast 5 Months Z00.00 - Encounter for general adult medical examination without abnormal findings Lipid Panel 5 Months Z00.00 - Encounter for general adult medical examination without abnormal findings UA and rflx microscopic 5 Months Z00.00 - Encounter for general adult medical examination without abnormal findings Coding Level of Care Code Est Pt Level 3 (81164) Diagnoses Diabetes type 2, controlled E11.9 Essential hypertension I10 PAD (peripheral artery disease) I73.9
[2024-03-18 13:39] VITALS: BP 112/50; PULSE 71; RESP 16; TEMP 36.3; O2SAT 95; BMI 25.1
== END 2024-03-18 14:19 | disposition home or self-care (01) ==
PROVIDERS: PCP Family Medicine; Visit Provider Family Medicine
DX: E11.9 Type 2 diabetes mellitus without complications (principal); I10 Essential (primary) hypertension; I73.9 Peripheral vascular disease, unspecified
CPT/HCPCS: 99213

== ENCOUNTER 2024-06-21 11:18 | Outpatient (AMB) | payer MEDICARE, SELFPAY ==
--- NOTE | 2024-06-21 11:26 | A.OFFPC_ITS ---
Vital Signs 06/21/24 11:41 Height 5 ft 10 in Weight 177 lb 8 oz BMI 25.5 BP 100/60 Blood Pressure Location Rt brachial Position Sitting Respiration 16 Pulse 69 Pulse Source Pulse Oximeter Pulse Oximetry (%) 97 Oxygen Delivery Method Room Air Intake Visit Reasons: ANNUAL PE- see comments!! Intake Note: annual PE Allergies environmental allergies Allergy (Mild, Verified 06/21/24 11:35) itchy, watery eyes, sneezing, coughing. Medication List - Last Reconciled 06/21/24 by Hieu Christina MD aspirin (Adult Aspirin Regimen) 81 mg PO DAILY atorvastatin 40 mg PO DAILY 90 days fenofibrate micronized 134 mg PO DAILY lisinopril 10 mg PO DAILY 90 days metformin ER 500 mg PO BID metoprolol succinate ER 25 mg PO DAILY famvkpke-nit-zbeby-vit K-lycop 400-20-300 mcg (One-A-Day Men's Multivitamin) tabs PO sitagliptin phosphate (Januvia) 100 mg PO DAILY 90 days vitamin B complex (B Complex-Vitamin B12 tablet) 1 tab PO DAILY Tobacco use date assessed: 06/21/24 Fall risk assessment: 1 Fall in past year Last assessed Fall Risk: 06/21/24 Dental Screening Dental Screen Date: 06/21/24 Did you have a dental visit in the last 12 months?: Yes Did you have a dental problem in the last 6 months where you did not have access to dental care?: No Was dental information given to patient?: Patient has dentist HPI ANNUAL PE- see comments!! HPI Details 68 y/o male presents for a CPE with f/u labs and health maintenance. No recent labs to review. Last A1c 12/15/23 6.2%. Blood pressure today 100/60, 69p. He is on lisinopril 10mg, metoprolol 25mg daily. Does pickleball and exercises/keeps himself active. [facility] Medical History History of Mohs micrographic surgery for skin cancer Surgical History History of tooth extraction History of bone graft No pertinent past surgical history Social History Household Members: Spouse Housing: House Alcohol intake: current Alcohol intake frequency: holidays/special occasions only Alcohol type: beer Patient Tobacco Use Status: Current everyday Tobacco user Tobacco use type: Cigarette Cigarette Packs Per Day: 1 Years Smoked: 45 e-Cigarette/Vaping Use: Never Used Second Hand Smoke Exposure: No service: No Current occupational status: retired Current occupation: right handed Current occupational exposures/hazards: No Sexual orientation: Unable to collect Gender identity: Unable to collect Cognitive needs: No Hearing needs: No Vision needs: No Questionnaire PHQ-9 Over the last 2 weeks, how often have you been bothered by any of the following problems? 1. Little interest or pleasure in doing things: not at all 2. Feeling down, depressed, or hopeless: not at all 3. Trouble falling or staying asleep, or sleeping too much: not at all 4. Feeling tired or having little energy: not at all 5. Poor appetite or overeating: not at all 6. Feeling bad about yourself - or that you are a failure or have let yourself or your family down: not at all 7. Trouble concentrating on things, such as reading the newspaper or watching television: not at all 8. Moving or speaking so slowly that other people could have noticed. Or the opposite - being so fidgety or restless that you have been moving around a lot more than usual: not at all 9. Thoughts that you would be better off or of hurting yourself in some way: not at all Total score: 0 Depression Screening Interpretation: Negative Depression Screening Done: Yes 70749 - PHQ-9 Billing: Yes Source: Developed by Drs. Rupert Milton, Diane Putnam, Mac Hamilton and colleagues, with an educational lolis from [employer]. Thrive Questionnaire Date Thrive assessed: 06/21/24 I am a: Patient What is your living situation today?: I have a steady place to live Within the past 12 months, did the food you bought not last and you didn't have the money to get more?: Never true Within the past 12 months, did you worry whether your food would run out before you got money to buy more?: Never true Do you have trouble paying for medicines?: No Do you have trouble getting transportation to medical appointments?: No Do you have trouble paying your heating and electricity bill?: No Do you have trouble taking care of your child, family member or friend?: No Do you have trouble with day-to-day activities such as bathing, preparing meals, shopping, managing finances, etc.?: No Are you currently unemployed and looking for a job?: No Are you interested in more education?: No Please select the resources that you would like help with: None Currently or been in a relationship where the following occur: No concerns reported THRIVE Score: 0 AUDIT C Alcohol Use Questionnaire (AUDIT-C) 1. How often do you have a drink containing alcohol?: Monthly or less 2. How many drinks containing alcohol do you have on a typical day when you are drinking?: 1 or 2 3. How often do you have six or more drinks on one occasion?: Never Total Score: 1 NIGHAT-7 AMB Questionnaire NIGHAT-7 Date NIGHAT - 7 assessed: 06/21/24 Feeling nervous, anxious, or on edge: 0 = Not at all Not being able to stop or control worryin = Not at all Worrying too much about different things: 0 = Not at all Trouble relaxin = Not at all Being so restless that it is hard to sit still: 1 = Several days Becoming easily annoyed or irritable: 0 = Not at all Feeling afraid as if something awful might happen: 0 = Not at all Total NIGHAT-7 score (0-4 normal; 5-9 mild; 10-14 moderate; 15-21 severe): 1 Source: Developed by Drs. Rupert Milton, Diane Putnam, Mac Hamilton and colleagues, with an educational lolis from [employer]. NIGHAT-7 Assessment Billing NIGHAT-7 Assessment Tool: NIGHAT-7 Assessment 56196 Review of Systems Const Denies chills, Denies fatigue, Denies fever(s), Denies headache(s) and Denies weakness Eyes Denies change in vision ENT Denies dizziness, Denies headache(s), Denies hearing loss, Denies nasal congestion, Denies sinus pain, Denies sinus pressure and Denies sore throat Card Denies chest pain, Denies lightheadedness, Denies dyspnea and Denies other (p alpitations) Resp Denies cough, Denies dyspnea and Denies wheezing GI Denies abdominal pain, Denies melena, Denies hematochezia, Denies change in baljit l habits, Denies dyspepsia and Denies nausea Denies hematuria and Denies dysuria Musc Denies abnormal gait, Denies myalgias, Denies arthralgias, Denies numbness and Denies tingling Skin/Breast Denies rash, Denies unusual bruising and Denies wounds Neuro Denies abnormal gait, Denies dizziness, Denies headache(s), Denies memory loss, Denies numbness, Denies Sensory deficit (Neuro), Denies tingling and Denies weakness Psych Denies anxiety, Denies depression and Denies memory loss Endo Denies cold intolerance, Denies fatigue, Denies heat intolerance, Denies polydipsia and Denies polyuria Jareth/Lymph Denies easy bleeding and Denies easy bruising Aller/Immun Denies wheezing Physical exam (Primary Care) Vital Signs: Last Vital Signs Pulse 69 06/21/24 11:41 Resp 16 06/21/24 11:41 BP 100/60 06/21/24 11:41 Pulse Ox 97 06/21/24 11:41 Oxygen Delivery Method Room Air 06/21/24 11:41 BMI result Body Mass Index 25.5 Tobacco/Smoking Status: Tobacco use Status Tobacco use date assessed 06/21/24 06/21/24 11:40 Patient Tobacco Use Status Current everyday Tobacco 06/21/24 11:27 Tobacco use type Cigarette 06/21/24 11:27 e-Cigarette/Vaping Use Never Used 06/21/24 11:27 PHQ-9: PHQ-9 Score PHQ-9: Total score 0 06/21/24 12:04 Depression Screening Interpretation: Negative Thrive Assessment: Date of Thrive Assessment Date Thrive assessed 06/21/24 06/21/24 11:40 Currently or been in a relationship where the following occur: No concerns reported Const General: no acute distress, well developed, alert and awake Nutritional Appearance: well nourished Orientation/consciousness: patient oriented x3 [facility] Head: Yes normocephalic and Yes atraumatic Ears: hearing grossly normal bilaterally and TM's normal bilaterally General nose exam: Normal external nose present and Normal nares present Mouth: Normal oral and palatal mucosa present and moist mucous membranes Teeth and gingiva: dentition normal Throat: Yes posterior oropharynx normal Eyes General: appearance normal, both eyes and all related structures Pupils: Equal, round and reactive pupils present and Pupil accommodation reflex normal EOM: EOMs intact bilaterally Neck Neck: Yes normal visual inspection, Yes no lymphadenopathy and Yes trachea midline Thyroid: Thyroid normal Carotids: no bruits Lymphatic: no lymphadenopathy noted Chest Chest palpation & inspection: normal inspection of the chest Resp Effort & Inspection: normal respiratory effort Auscultation: clear to auscultation bilaterally Cardio Rate: regular rate Rhythm: regular rhythm Heart sounds: S1 normal heart sound present, S2 normal heart sound present, no gallops, no murmurs and no rubs Bruits: no abdominal aortic bruits and no carotid bruits GI Palpation (GI): No Abdominal aortic bruit present, Soft to palpation, nontender, No hepatosplenomegaly present and No Rebound tenderness present Auscultation: normal bowel sounds General: Yes no CVA tenderness Back/Spine/Pelvis Back: no CVA tenderness Cervical Spine: cervical ROM normal and No Cervical spine tenderness Thoracic/Lumbar Spine: thoraco-lumbar ROM normal, No pain with thoraco-lumbar ROM, No thoracic spinal tenderness and No lumbar spinal tenderness Skin Lesions: no lesions Rashes: no rashes Trauma: no lacerations or abrasions Wounds: no wounds Nails: normal Neuro General: patient oriented x3 Cranial nerves: Yes Equal, round and reactive pupils present Cognition (Neuro): normal cognition Gait exam (Neuro): Normal gait present Motor exam (neuro): 5/5 motor strength present throughout Sensory Exam: No Sensory deficit (Neuro) Deep tendon reflexes (DTR's): Right patellar reflex intensity grade: 2+ and Left patellar reflex intensity grade: 2+ Extrem General: Yes normal to inspection and No edema Psych Appearance: grossly normal Affect: normal affect Attitude: cooperative Thought process: Normal thought process present Coding Level of Care Code Est Pt Level 3 (63373) Est Pt Prev Care >65y(07274) Diagnoses Adult general medical exam Z00.00 Essential hypertension I10 CAD (coronary artery disease) I25.10 Diabetes type 2, controlled E11.9 Erectile dysfunction N52.9 Screening for prostate cancer Z12.5 Screening for colon cancer Z12.11 Additional Codes NIGHAT-7 Assessment Billing - NIGHAT-7 Assessment Tool: NIGHAT-7 Assessment 41684 ([id number]) PHQ-9 - 13930 - PHQ-9 Billing: Yes ([id number]) Assessment & Plan Assessment & Plan (1) Adult general medical exam: Code(s): Z00.00 - Encounter for general adult medical examination without abnormal findings Category: Medical Plan: 68-year-old?male?presents?for?complete?physical?exam Encouraged?healthy?diet?with?active?lifestyle?and?plenty?of?exercise (2) Essential hypertension: Code(s): I10 - Essential (primary) hypertension Category: Medical Plan: Blood?pressure?is?controlled.??Goal?is?less?than?130/80 Continue?current?medication?regimen (3) CAD (coronary artery disease): Code(s): I25.10 - Atherosclerotic heart disease of [place] coronary artery without angina pectoris Category: Medical Plan: Stable Follow-up?with??Juan Miguel as?recommended (4) Diabetes type 2, controlled: Code(s): E11.9 - Type 2 diabetes mellitus without complications Category: Medical Plan: A1c?today?is?6.2%.??Good?control.??Goal?is?less?than?7.0% Continue?current?medication?regimen (5) Erectile dysfunction: Code(s): N52.9 - Male erectile dysfunction, unspecified Category: Medical Plan: Trial?sildenafil Risks/benefits?discussed (6) Screening for prostate cancer: Code(s): Z12.5 - Encounter for screening for malignant neoplasm of prostate Category: Medical Plan: Check?PSA (7) Screening for colon cancer: Code(s): Z12.11 - Encounter for screening for malignant neoplasm of colon Category: Medical Plan: Has?appointment?with?Gastroenterology.?? Orders: Orders Microalbumin, Random (w Creat) Today I10 - Essential (primary) hypertension LDL Cholesterol Direct Today E78.5 - Hyperlipidemia, unspecified Comprehensive [place]. Panel Fast Today Z00.00 - Encounter for general adult medical examination without abnormal findings Prostate Specific Antigen Scr Today Z12.5 - Encounter for screening for malignant neoplasm of prostate TSH reflex Free T4 Today Z00.00 - Encounter for general adult medical examination without abnormal findings UA and rflx microscopic Today Z00.00 - Encounter for general adult medical examination without abnormal findings Lipid Panel Today Z00.00 - Encounter for general adult medical examination without abnormal findings Complete Blood Count Auto Diff Today Z00.00 - Encounter for general adult medical examination without abnormal findings Referrals Cardiology Referral I25.10 - Atherosclerotic heart disease of [place] coronary artery without angina pectoris Vascular Surgery Referral I73.9 - Peripheral vascular disease, unspecified Dermatology Referral D48.5 - Neoplasm of uncertain behavior of skin Podiatry Referral M79.673 - Pain in unspecified foot
[2024-06-21 11:41] VITALS: BP 100/60; PULSE 69; RESP 16; O2SAT 97; BMI 25.5
== END 2024-06-21 12:30 | disposition home or self-care (01) ==
PROVIDERS: PCP Family Medicine; Visit Provider Family Medicine
DX: Z00.00 Encounter for general adult medical examination without abnormal findings (principal); I10 Essential (primary) hypertension; I25.10 Atherosclerotic heart disease of native coronary artery without angina pectoris; E11.9 Type 2 diabetes mellitus without complications; N52.9 Male erectile dysfunction, unspecified; Z12.5 Encounter for screening for malignant neoplasm of prostate; Z12.11 Encounter for screening for malignant neoplasm of colon

== ENCOUNTER → 2024-06-21 11:18 | Outpatient (BNVA) | payer MEDICARE, SELFPAY | PROVIDERS: PCP Family Medicine; Visit Provider Family Medicine | DX: Z00.00 Encounter for general adult medical examination without abnormal findings (principal); I10 Essential (primary) hypertension; I25.10 Atherosclerotic heart disease of native coronary artery without angina pectoris; E11.9 Type 2 diabetes mellitus without complications; N52.9 Male erectile dysfunction, unspecified | CPT/HCPCS: 83036; 96127; 99397 ==

== ENCOUNTER 2024-06-22 08:01 | Outpatient (REF) | payer MEDICARE, SELFPAY ==
[2024-06-22 11:36] LABS: MANUAL DIFF FLAG NO
[2024-06-22 11:52] LABS: Basophils Absolute Auto 0.1 X10*3/uL (0.0-0.2); Basophils Percent Auto 1.6 % (0-2); Eosinophils Absolute Auto 0.2 X10*3/uL (0.0-0.4); Eosinophils Percent Auto 3.4 % (0-4); Hematocrit 46.3 % (42.0-52.0); Hemoglobin 15.5 g/dl (14.0-18.0); Imm Gran Abs Auto 0.02 X10*3/uL (0.00-0.03); Imm Gran Pct Auto 0.3 % (0.0-0.4); Lymphocytes Absolute Auto 2.4 X10*3/uL (1.2-4.9); Lymphocytes Percent Auto 33.7 % (20-40); Mean Corpuscular HGB Conc 33.5 g/dl (31.0-36.0); Mean Corpuscular Hemoglobin 31.6 pg (27.0-33.0); Mean Corpuscular Volume 94.5 fL (80.0-98.0); Mean Platelet Volume 9.9 fL (9.4-12.4); Monocytes Absolute Auto 0.5 X10*3/uL (0.1-1.2); Monocytes Percent Auto 6.9 % (2-11); Neutrophils Absolute Auto 3.8 x10*3/uL (2.0-8.3); Neutrophils Percent Auto 54.1 % (45-73); Platelet Count 237 X10*3/uL (160-400); Red Cell Distribution Width 13.1 % (11.0-16.0); White Blood Count 7.1 X10*3/uL (4.8-10.8)
[2024-06-22 11:54] LABS: Appearance Urine Clear; Color Urine Yellow; Glucose Urine UA Negative (Negative); Leukocyte Esterase Urine Negative (Negative); Nitrite Urine Negative (Negative); PH 5.5 (5.0-9.0); Specific Gravity - Urine 1.015 (1.005-1.025); Urine Blood Negative (Negative); Urine Ketones Negative (Negative); Urine Protein Negative (Neg-Trace)
[2024-06-22 12:21] LABS: Creatinine Urine 115.09 mg/dL; Microalbumin Urine < 5.0 mg/L
[2024-06-22 12:29] LABS: Prostate Specific Antigen Scr 0.76 ng/mL (<0.05-4.0)
[2024-06-22 12:41] LABS: TSH reflex Free T4 1.49 uIU/mL (0.32-4.0)
[2024-06-22 12:50] LABS: Anion Gap 13 (12-20)
[2024-06-22 12:54] LABS: Alanine Aminotransferase 21 U/L (0-40); Albumin Level 4.1 g/dL (3.5-5.0); Alkaline Phosphatase 55 U/L (39-117); Aspartate Amino Transferase 27 U/L (5-37); Bilirubin Total 0.7 mg/dL (0.0-1.0); Blood Urea Nitrogen 12 mg/dL (9-16); Calcium 8.6 mg/dL (8.4-10.2); Carbon Dioxide 26 mmol/L (22-29); Chloride 105 mmol/L (96-108); Cholesterol 104 mg/dL (<200); Estimated Glomerular Filt Rate > 60; Glucose Fasting 124 mg/dL (60-99); HDL Cholesterol 31 mg/dL (>40); LDL Cholesterol Calculated 58 mg/dL (<100); Sodium 140 mmol/L (135-145); Total Protein 7.2 g/dL (6.5-8.0); Triglycerides 79 mg/dL (<150)
[2024-06-24 03:38] LABS: LDL Cholesterol Direct 61 mg/dL (<100)
== END 2024-06-22 08:02 | disposition home or self-care (01) ==
LOC: HO.WFDLDS 08:01
PROVIDERS: Visit Provider Family Medicine
DX: Z00.00 Encounter for general adult medical examination without abnormal findings (principal); Z12.5 Encounter for screening for malignant neoplasm of prostate; I10 Essential (primary) hypertension; E78.5 Hyperlipidemia, unspecified
CPT/HCPCS: 36415; 80053; 80061; 81003; 82043; 82570; 83721; 84153; 84443; 85025

== ENCOUNTER 2024-07-20 11:18 | Outpatient (AMB) | payer MEDICARE, SELFPAY ==
--- NOTE | 2024-07-20 11:14 | A.OFFPC_ITS ---
Intake Visit Reasons: f/u CPE-labs via telemedicine Allergies environmental allergies Allergy (Mild, Verified 07/20/24 11:15) itchy, watery eyes, sneezing, coughing. Tobacco use date assessed: 06/21/24 Dental Screening Dental Screen Date: 06/21/24 HPI f/u CPE-labs via telemedicine HPI Details 68 y/o male presents to f/u CPE-labs via telemedicine. Labs drawn 06/22/24. Reviewed labs with pt. Elevated fasting glucose of 124. Triglycerides 79. TC 104. LDL 61. HDL low at 31. PFSH Medical History History of Mohs micrographic surgery for skin cancer Surgical History History of tooth extraction History of bone graft No pertinent past surgical history Social History Household Members: Spouse Housing: House Alcohol intake: current Alcohol intake frequency: holidays/special occasions only Alcohol type: beer Patient Tobacco Use Status: Current everyday Tobacco user Tobacco use type: Cigarette Cigarette Packs Per Day: 1 Years Smoked: 45 e-Cigarette/Vaping Use: Never Used Second Hand Smoke Exposure: No service: No Current occupational status: retired Current occupation: right handed Current occupational exposures/hazards: No Sexual orientation: Unable to collect Gender identity: Unable to collect Cognitive needs: No Hearing needs: No Vision needs: No Questionnaire Thrive Questionnaire Date Thrive assessed: 06/21/24 NIGHAT-7 AMB Questionnaire NIGHAT-7 Date NIGHAT - 7 assessed: 06/21/24 Source: Developed by Drs. Rupert Milton, Diane Putnam, Mac Hamilton and colleagues, with an educational lolis from [employer]. Physical exam (Primary Care) Tobacco/Smoking Status: Tobacco use Status Tobacco use date assessed 06/21/24 07/20/24 11:17 Patient Tobacco Use Status Current everyday Tobacco 07/20/24 11:17 Tobacco use type Cigarette 07/20/24 11:17 e-Cigarette/Vaping Use Never Used 07/20/24 11:17 Thrive Assessment: Date of Thrive Assessment Date Thrive assessed 06/21/24 07/20/24 11:17 Telehealth Telehealth Telehealth Platform: Telephone Location of provider rendering services: practice address Location of patient: address on file Patient Identification confirmed using: Name, : Yes Telehealth method: voice only Patient verbally consented to treatment: Yes Patient verbally consented to billing insurance company: Yes Patient informed of any privacy concerns related to visit: Yes Minutes spent on Phone/Video with Pt.: 11 Coding Level of Care Code Tele Est Pt Level 2 (57345) Diagnoses Hyperlipidemia, mixed E78.2 CAD (coronary artery disease) I25.10 Diabetes type 2, controlled E11.9 Neoplasm of uncertain behavior of skin D48.5 Heel pain M79.673 Screening for prostate cancer Z12.5 Erectile dysfunction N52.9 Assessment & Plan Assessment & Plan (1) Hyperlipidemia, mixed: Code(s): E78.2 - Mixed hyperlipidemia Category: Medical Plan: TC,?LDL?and?triglycerides?appear?well?controlled.??He?is?on?atorvastatin. HDL?still?low. Continue?atorvastatin.??Goal?for?LDL?is?less?than?70. Follow-up?with??and?discuss?low?HDL. (2) CAD (coronary artery disease): Code(s): I25.10 - Atherosclerotic heart disease of [place] coronary artery without angina pectoris Category: Medical Plan: Stable Follow-up?with? (3) Diabetes type 2, controlled: Code(s): E11.9 - Type 2 diabetes mellitus without complications Category: Medical Plan: A1c?shows?good?control.??Goal?is?less?than?7.0% Continue?current?medication Patient?has?upcoming?eye?exam?in?will?have?report?forwarded?to?me (4) Neoplasm of uncertain behavior of skin: Code(s): D48.5 - Neoplasm of uncertain behavior of skin Category: Medical Plan: Has?appointment?Dermatology (5) Heel pain: Code(s): M79.673 - Pain in unspecified foot Category: Medical Plan: Patient?has?appointment?with?Podiatry Also?sees?vascular?surgery - scheduled?in?December (6) Screening for prostate cancer: Code(s): Z12.5 - Encounter for screening for malignant neoplasm of prostate Category: Medical Plan: PSA?is?within?normal?limits,?stable Will?continue?annual?screening (7) Erectile dysfunction: Code(s): N52.9 - Male erectile dysfunction, unspecified Category: Medical Plan: Sent?a?script?for?sildenafil. We?can?discuss?in?follow-up?at?next?visit Medications: New sildenafil administer 30 minutes to 4 hours before activity 50 mg PO DAILY 30 days PRN 6 tabs 3RF sexual activity
== END 2024-07-20 17:05 | disposition home or self-care (01) ==
LOC: HO.HMCFM 11:18
PROVIDERS: PCP Family Medicine; Visit Provider Family Medicine
DX: E78.2 Mixed hyperlipidemia (principal); I25.10 Atherosclerotic heart disease of native coronary artery without angina pectoris; E11.9 Type 2 diabetes mellitus without complications; D48.5 Neoplasm of uncertain behavior of skin; M79.673 Pain in unspecified foot; Z12.5 Encounter for screening for malignant neoplasm of prostate; N52.9 Male erectile dysfunction, unspecified

== ENCOUNTER → 2024-07-20 11:18 | Outpatient (BNVA) | payer MEDICARE, SELFPAY | PROVIDERS: PCP Family Medicine; Visit Provider Family Medicine ==

== ENCOUNTER 2024-09-13 14:36 | Outpatient (AMB) | payer MEDICARE, SELFPAY ==
--- NOTE | 2024-09-13 14:42 | A.OFFVIS_ITS ---
Vital Signs 09/13/24 14:55 Height 5 ft 10 in Weight 176 lb 5.917 oz BMI 25.3 BP 106/52 L Blood Pressure Location Rt brachial Position Sitting Pulse 74 Pulse Source Pulse Oximeter Pulse Oximetry (%) 99 Oxygen Delivery Method Room Air Intake Visit Reasons: Colonoscopy Screening Intake Note: NEW PATIENT for recall screening, 2nd lifetime. ~ 10 years ago via [employer] [place]. Chief Complaint; C/O occasional reflux which primarily seems to be diet related per pt. Only ~ 6 episodes per year. Pt also reports more frequent episodes of constipation / hard stools. Reports BM every 2-3 days on average. No additional concerns at this time. Pharmacy verified? [facility] for [facility]. One time Rx - [facility] [employer] Required: No Accompanied by: Self / Same As Patient Allergies environmental allergies Allergy (Mild, Verified 09/13/24 14:42) itchy, watery eyes, sneezing, coughing. HPI HPI Colonoscopy Screening: Details: 69 year old? male with past medical history of PID, history of SC, COPD, hypertension, hyperlipidemia, diabetes is here today for pre colonoscopy screening.? Patient was sent to us by his PCP.? Last colonoscopy about 10 years ago or so, was told that it was normal.? Patient denies any gastrointestinal symptoms in the past or at present.? However patient does report to have occasional constipation. Bowel movement sometimes every 2-3 days. Constipation occasionally wear his bowels are very hard and large. Denies melena, hematochezia, unintentional weight loss or ribbon like stools. Denies any personal or family history of gastrointestinal disease, colon polyps, or CRC.? Denies history of difficulty with sedation or anesthesia in the past.? Negative for history of sleep apnea.? Denies any history of cardiac, renal, pulmonary, or hepatic disease.?? No history of infectious? diseases like hepatitis A, B, C, HIV or tuberculosis.? Patient is on low-dose aspirin [facility] Medical History History of Mohs micrographic surgery for skin cancer Surgical History Hx of colonoscopy (~2014) History of tooth extraction History of bone graft No pertinent past surgical history Social History (Reviewed 09/13/24 @ 14:48 by Anthony West [facility]) Household Members: Spouse Housing: House Alcohol intake: current Alcohol intake frequency: holidays/special occasions only Alcohol type: beer Patient Tobacco Use Status: Current everyday Tobacco user Tobacco use type: Cigarette Cigarette Packs Per Day: 1 Years Smoked: 45 e-Cigarette/Vaping Use: Never Used Second Hand Smoke Exposure: No service: No Current occupational status: retired Current occupation: right handed Current occupational exposures/hazards: No Sexual orientation: Unable to collect Gender identity: Unable to collect Cognitive needs: No Hearing needs: No Vision needs: No Review of Systems Const Denies weight gain and Denies weight loss ENT Reports no additional complaints, Denies dysphagia and Denies odynophagia Card Reports no additional complaints Resp Reports no additional complaints GI Denies abdominal pain, Denies belching, Denies melena, Denies bloating, Denies change in bowel habits, Denies dysphagia, Denies excessive flatus, Denies dyspepsia, Denies heartburn, Denies diarrhea, Denies loose stools, Denies nausea, Denies odynophagia and Denies vomiting Reports no additional complaints Musc Reports no additional complaints Neuro Reports no additional complaints Psych Reports no additional complaints Endo Reports no additional complaints Physical Exam Vital Signs: Last Vital Signs Pulse 74 09/13/24 14:55 BP 106/52 L 09/13/24 14:55 Pulse Ox 99 09/13/24 14:55 Oxygen Delivery Method Room Air 09/13/24 14:55 BMI result Body Mass Index 25.3 Const General: healthy appearing, no acute distress and well developed Nutritional Appearance: well nourished Orientation/consciousness: patient oriented x3 Resp Effort & Inspection: normal respiratory effort, able to speak in complete sentences, no tracheal deviation and symmetric chest movement Auscultation: clear to auscultation bilaterally Cardio Rate: regular rate GI Inspection: Yes normal to inspection and No distended Palpation (GI): Soft to palpation, not firm, nontender and No hepatosplenomegaly present Auscultation: normal bowel sounds General: Yes no CVA tenderness Back/Spine/Pelvis Back: no CVA tenderness Skin General skin exam: elasticity normal, turgor normal and dry skin Neuro General: patient oriented x3 Psych Appearance: grossly normal Mental Status: mental status grossly normal Assessment & Plan Assessment & Plan (1) Screening for colon cancer: Code(s): Z12.11 - Encounter for screening for malignant neoplasm of colon Category: Medical (2) Constipation: Code(s): K59.00 - Constipation, unspecified Qualifiers: Constipation type: slow transit constipation Qualified Code(s): K59.01 - Slow transit constipation Plan Patient denies any GI, cardiac or respiratory symptoms.? Denies any issues with anesthesia in the past.? Denies any history of sleep apnea.? No history infectious diseases in the past or present.? Patient is on low-dose aspirin. No family or personal history of colon cancer or polyps.? Patient denies melena, hematochezia, unintentional weight loss or ribbon like stools.? Patient reports bowel movements every couple days, sometimes constipated feeling like his stool is very hard. Will send a script for Colace. Patient was also encouraged to increase fluid intake and activity to promote better bowel motility. Discussed at length the pre-procedure,? prep, diet & medications as well as what to expect prior, during and after the procedure.?? Stressed the importance of good bowel prep.? Recommended the use of Vaseline or Calmoseptine OTC & baby wipes with bowel movements to promote comfort.? ?Patient verbalizes understanding and agrees to plan of care.? He was given the opportunity to ask questions and all questions answered.? We will see him after the procedure.? Medications: New bisacodyl (Dulcolax (bisacodyl)) take 4 tabs at noon the day before your colonoscopy 20 mg (4 x 5 mg) PO ONCE 4 tabs 0RF 1 day Z12.11 - Encounter for screening for malignant neoplasm of c olon docusate sodium 100 mg PO BEDTIME 90 caps 3RF K59.00 - Constipation, unspecified polyethylene glycol 3350 (Miralax) As directed by gastroenterology department at [facility] 238 grams PO ONCE 238 grams 0RF Z12.11 - Encounter for screening for malignant neoplasm of colon Coding Level of Care Code New Pt Level 3 (68723) Diagnoses Screening for colon cancer Z12. Slow transit constipation K59.01 Constipation type: slow transit constipation Time Spent (min) 40 Comment 30 minutes spent with patient and additional 10 minutes spent reviewing his records
[2024-09-13 14:55] VITALS: BP 106/52; PULSE 74; O2SAT 99; BMI 25.3
--- OUTSIDE RECORDS SUMMARY | 2024-09-13 17:25 | XMS_ITS | Clinical Summary ---
Author Organization [facility] Address [address] [place] [address] Phone Care Team Providers Care Binder Cutter Hand Name Role Phone Hieu Christina MD Primary Care Provider Allergies No known active allergies Medications amoxicillin (AMOXIL) 500 mg capsule Take 1 capsule (500 mg total) by mouth every 8 (eight) hours. 03/04/2024 Active ibuprofen (ADVIL,MOTRIN) 600 mg tablet Take 1 tablet (600 mg total) by mouth 4 (four) times a day if needed. for pain 03/04/2024 Active oxyCODONE (ROXICODONE) 5 mg immediate release tablet Take 1 tablet (5 mg total) by mouth Every 4 hours as needed. Max Daily Amount: 30 mg 08/06/2022 Active sildenafiL (VIAGRA) 50 mg tablet Take 1 tablet (50 mg total) by mouth if needed. 07/20/2024 Active Januvia 100 mg tablet Take 1 tablet (100 mg total) by mouth 1 (one) time each day. 07/19/2024 Active Encounters Date Type Department Care Team Description 08/12/2024 3:00 PM EST Consult Orthopedic Surgery - [place] [address] [id number] Maykel Montes De Oca DPM Pes planus of both feet (Primary Dx); Left foot pain; Plantar fasciitis from Last 3 Months Social History Tobacco Use Types Packs/Day Years Used Date Smoking Tobacco: Never Assessed Sex and Gender Information Value Date Recorded Sex Assigned at Not on file Legal Sex Male 12:51 PM EST Gender Identity Not on file Sexual Orientation Not on file Last Filed Vital Signs Vital Sign Reading Time Taken Comments Blood Pressure - - Pulse - - Temperature - - Respiratory Rate - - Oxygen Saturation - - Inhaled Oxygen Concentration - - Weight 83.9 kg (185 lb) 08/12/2024 3:04 PM EST Height 170.2 cm (5' 7 ) 08/12/2024 3:04 PM EST Body Mass Index 28.98 08/12/2024 3:04 PM EST Plan of Treatment Health Maintenance Due Date Last Done Comments Diabetes: Annual GFR (Glomerular Filtration Rate) 1954 Diabetes: Annual Foot Exam 1964 Diabetes: Annual Retina Eye Exam 1964 Pneumococcal Vaccine: 50+ Years (2 of 2 - PPSV23) 08/23/2016 06/28/2016 Abdominal Aortic Aneurysm (AAA) Screen 06/29/2024 Cholesterol Screening (Lipid Panel) 06/29/2024 Colorectal Cancer Screening: Colonoscopy 06/29/2024 Depression Screening 06/29/2024 Falls Risk Assessment 06/29/2024 Hepatitis C Screening 06/29/2024 Medicare Annual Wellness Visit 06/29/2024 Social Influencers of Health Screening 06/29/2024 Diabetes: Annual Urine Albumin-Creatinine Ratio (uACR) 08/12/2024 Diabetes: Blood Sugar Control Test (HGBA1C) 08/12/2024 Hypertension/CHF/CAD Annual BMP Blood Test 08/12/2024 DTaP,Tdap,and Td Vaccines (4 - Td or Tdap) 12/14/2033 12/15/2023, 03/04/2017, 01/16/2010 Zoster Vaccines Completed 12/31/2018, 12/13, 07/18/2018 RSV Immunization Patients 60+ Years Old Completed 07/22/2023 COVID-19 Vaccine Completed 05/17/2024, , 10/21/2021, Additional history exists Influenza Vaccine Completed 05/17/2024, , 05/29/2021, Additional history exists HIB Vaccines Aged Out No longer eligi ble based on patient's age to complete this topic HPV Vaccines Aged Out No longer eligi ble based on patient's age to complete this topic Hepatitis A Vaccines Aged Out No long er eligible based on patient's age to complete this topic Hepatitis B Vaccines Aged Out No long er eligible based on patient's age to complete this topic IPV Vaccines Aged Out No longer eligi ble based on patient's age to complete this topic MMR Vaccines Aged Out No longer eligi ble based on patient's age to complete this topic Meningococcal ACWY Vaccine Aged Out N o longer eligible based on patient's age to complete this topic Meningococcal B Vacine Aged Out No lo nger eligible based on patient's age to complete this topic RSV Immunization Patients Under 20 months Aged Out No longer eligible based on patient's age to complete this topic Varicella Vaccines Aged Out No longer eligible based on patient's age to complete this topic Insurance [employer] [place] [address] Care Teams Binder Cutter Hand Relationship Specialty Start Date End Date Hieu Christina MD [address] [place] [address] Dr [place] PCP - General Family Medicine 06/29/24
--- OUTSIDE RECORDS SUMMARY | 2024-09-13 17:25 | XMS_ITS | Clinical Summary ---
Author Organization [facility] Address [address] [place] [address] Care Team Providers Care Battery Tester Field Name Role Phone Unknown Primary Care Provider [phone] Allergies No known active allergies Medications Medication Sig Dispensed Refills Start Date End Date Status metFORMIN (GLUCOPHAGE) 500 MG tablet Take 1,000 mg by mouth daily. Active fenofibrate micronized (LOFIBRA) 134 MG capsule Take 134 mg by mouth daily. Active metoPROLOL SUCCINATE (TOPROL-XL) 25 MG 24 hr tablet Take 25 mg by mouth daily. Active atorvastatin (LIPITOR) 40 MG tablet Take 40 mg by mouth daily. Active aspirin enteric coated (ECOTRIN LOW STRENGTH) 81 MG EC tablet Take 81 mg by mouth daily. Active Cetirizine HCl (ALLERGY RELIEF) 10 MG Cap Take by mouth. Act mila sitaGLIPtin (JANUVIA) 100 MG tablet Take 100 mg by mouth daily. Active lisinopril (PRINIVIL,ZeSTRIL) 5 MG tablet Take 5 mg by mouth daily. Active Active Problems No known active problems Social History Tobacco Use Types Packs/Day Years Used Date Smoking Tobacco: Every Day Cigarettes Smokeless Tobacco: Never Alcohol Use Standard Drinks/Week Comments Yes 6 (1 standard drink = 0.6 oz pur e alcohol) Sex and Gender Information Value Date Recorded Sex Assigned at Not on file Gender Identity Not on file Sexual Orientation Not on file Last Filed Vital Signs Vital Sign Reading Time Taken Comments Blood Pressure 114/71 02/13/2021 8:38 AM EDT Pulse 71 02/13/2021 8:38 AM EDT Temperature 36 ??C (96.8 ??F) 02/13/2021 8:38 AM EDT Respiratory Rate 15 01/21/2019 3:28 PM EDT Oxygen Saturation 99% 02/13/2021 8:38 AM EDT Inhaled Oxygen Concentration - - Weight 82.6 kg (182 lb) 02/13/2021 8:38 AM EDT Height 177.8 cm (5' 10 ) 02/13/2021 8:38 AM EDT Body Mass Index 26.11 02/13/2021 8:38 AM EDT Plan of Treatment Health Maintenance Due Date Last Done Comments Hepatitis C Virus Screening 1954 DTaP/Tdap/Td Vaccines (1 - Tdap) 1973 Colonoscopy 1999 Pneumococcal Vaccines 50+ (1 of 1 - PCV) 2004 Zoster (Shingles) Vaccine (1 of 2) 2004 Influenza Vaccine 02/12/2024 COVID-19 Vaccine ( - 2023-2 5 season) 2024 RSV Vaccine 60 years and old er and Patients (1 - 1-dose 75+ series) 2029 Hepatitis B Vaccines Aged Out No long er eligible based on patient's age to complete this topic Care Teams Battery Tester Field Relationship Specialty Start Date End Date Unknown Unknow Provider Address PCP - General 01/21/19
--- OUTSIDE RECORDS SUMMARY | 2024-09-13 17:25 | XMS_ITS | Encounter Summary ---
Author Organization [facility] Address [address] [place] [address] Care Team Providers Care Manager Material Name Role Phone Unknown Primary Care Provider [phone] Encounter Details Date Type Department Care Team (Late st Contact Info) Description 02/13/2021 8:52 AM EDT Hospital Encounter [facility] [address] [place] [phone] Jonathan Dent MD [address] [place] [address] [phone] Social History Tobacco Use Types Packs/Day Years [...] Question erosive osteoarthritis. Ama [facility] IMG DIAGNOSTIC PADMINI GING ORDERABLES documented in this encounter Visit Diagnoses Not on filedocumented in this encounter Care Teams Manager Material Relationship Specialty Start Date End Date Unknown Unknow Provider Address PCP - General 01/21/19 documented as of this encounter
== END 2024-09-13 15:47 | disposition home or self-care (01) ==
PROVIDERS: PCP Family Medicine; Visit Provider Nurse Practitioner Family
DX: K59.01 Slow transit constipation (principal); Z12.11 Encounter for screening for malignant neoplasm of colon
CPT/HCPCS: 99203

== ENCOUNTER → 2024-09-13 14:36 | Outpatient (BNVA) | payer MEDICARE, SELFPAY | PROVIDERS: PCP Family Medicine; Visit Provider Nurse Practitioner Family | DX: Z12.11 Encounter for screening for malignant neoplasm of colon (principal); K59.01 Slow transit constipation | CPT/HCPCS: 99202 ==

== ENCOUNTER 2024-10-13 07:34 | Outpatient (REF) | payer MEDICARE, SELFPAY ==
--- OUTSIDE RECORDS SUMMARY | 2024-10-13 07:37 | XMS_ITS | Encounter Summary ---
Author Organization [facility] Address [address] [place] [address] Care Team Providers Care Credit Reference Clerk Name Role Phone Unknown Primary Care Provider [phone] Encounter Details Date Type Department Care Team (Late st Contact Info) Description 02/13/2021 8:52 AM EDT Hospital Encounter [facility] [address] [place] [phone] Jonathan Dent MD [address] [place] [phone] Social History Tobacco Use Types Packs/Day Years [...] on filedocumented in this encounter Care Teams Credit Reference Clerk Relationship Specialty Start Date End Date Unknown Unknow Provider Address PCP - General 01/21/19 documented as of this encounter
--- OUTSIDE RECORDS SUMMARY | 2024-10-13 07:37 | XMS_ITS | Clinical Summary ---
Author Organization [facility] Address [address] [place] [address] Care Team Providers Care Dip Unit Operator Name Role Phone Unknown Primary Care Provider [phone] Allergies No known active allergies Medications Medication [...] age to complete this topic Care Teams Dip Unit Operator Relationship Specialty Start Date End Date Unknown Unknow Provider Address PCP - General 01/21/19
--- OUTSIDE RECORDS SUMMARY | 2024-10-13 07:37 | XMS_ITS | Data Portability ---
Author Organization [place] [facility] Address [address] [place] [id number] Care Team Providers Care Research Tech Name Role Phone KENRICK EVANS Primary Care Provider [phone] Assessment Encounter Date Assessment Date Assessment LastModified by Organization Details LastModified Time 07/04/2021 07/04/2021 Overview/History : Pt states he has had right hamstring pain for the past 9 days. He states he initially injured this muscle last summer playing pickleball states he reinjured it playing last Friday. Worse with stretching and activity Exam: new pt to and to this provider. Non-toxic appearing afebrile 66yom in NAD. Resp unlabored, lungs clear. Pt has 5/5 muscle strength with flexion and extension of the bilat knees and hips. mild tenderness to the medial posterior midthigh. no obvious bony or muscular abnormalities no bruising, no erythema. DDx considered, but not limited to: muscle strain muscle tear abscess ligamentous strain Work up/Results: HPI and PE suggest muscle/ligamentou s strain Plan/Discussion: Milo wrap to the right thigh intermittently throughout the day. Rest for the next 5-10 days and start SLOWLY stretching the muscles back out. Use warmth and muscle balms for discomfort along with toradol PRN Time On Scene with Patient: 00:37:04 [email or web address] Not available 07/04/2021 10:05:34 Plan of Treatment Reminders Order Date Submit Date Provider Last Modified By Organization Details Last Modified Time Details Appointments None recorded. Lab None recorded. Referral None recorded. Procedures None recorded. Surgeries None recorded. Imaging None recorded. Medication Orders ketorolac 10 mg tablet 2020 021 [facility] #[id number], [address] [facility], [facility], [place], [place], [id number], 10:07:02 Patient TargetsNo targets recorded. Patient Instructions Encounter Date Encounter Id Patient Instructions Last Modified By Organization Details Last Modified Time 07/04/2021 [id number] hamstring strain : rehab exercises [email or web address] Not available 07/04/2021 10:08:01 hamstring strain : care instructions [email or web address] Not available 07/04/2021 10:07:59 Hamstring Strain: Care Instructions Your Care Instructions A hamstring strain happens when you overstretch, or pull, the muscles that run down the back of your thigh. It can happen when you exercise or lift something or if you're injured in an accident. You may feel pain and tenderness that's worse when you move your injured leg. The back of your thigh may be swollen and bruised. If you have a bad strain, you may not be able to move your leg normally. While a minor strain often heals well with rest and other treatment, a severe strain may require medical treatment. If a severe strain isn't treated, you may have long-lasting problems. Follow-up care is a walker part of your treatment and safety. Be sure to make and go to all appointments, and call your doctor if you are having problems. It's also a good idea to know your test results and keep a list of the medicines you take. How can you care for yourself at home? Rest your injured leg. Don't put weight on it for a day or two. If your doctor advises you to, use crutches to rest the leg. Put ice or a cold pack on the back of your thigh for 10 to 20 minutes at a time to stop swelling. Put a thin cloth between the ice and your skin. Wrapping your thigh with an elastic bandage (such as an Milo wrap), will help decrease swelling. Don't wrap it too tightly, since this can cause more swelling below the affected area. Elevate your thigh on pillows while applying ice and anytime you are sitting or lying down. Ask your doctor if you can take an [id number] pain medicine, such as acetaminophen (Tylenol), ibuprofen (Advil, Motrin), or naproxen (Aleve). Be safe with medicines. Read and follow all instructions on the label. Don't do anything that makes the pain worse. Return to your usual level of activity slowly. When should you call for help? Call your doctor now or seek immediate medical care if: You have severe or increasing pain. You have tingling, weakness, or numbness in your injured leg. You cannot move your injured leg. Watch closely for changes in your health, and be sure to contact your doctor if: You do not get better as expected. Care instructions adapted under license by [facility]. This care instruction is for use with your licensed healthcare professional. If you have questions about a medical condition or this instruction, always ask your healthcare professional. [employer] disclaims any warranty or liability for your use of this information. Hamstring Strain: Rehab Exercises Introduction Here are some examples of exercises for you to try. The exercises may be suggested for a condition or for rehabilitation. Start each exercise slowly. Ease off the exercises if you start to have pain. You will be told when to start these exercises and which ones will work best for you. How to do the exercises Hamstring set (heel dig) Sit with your affected leg bent. Your good leg should be straight and supported on the floor. Tighten the muscles on the back of your bent leg (hamstring) by pressing your heel into the floor. Hold for about 6 seconds, and then rest for up to 10 seconds. Repeat 8 to 12 times. Hamstring curl Lie on your stomach with your knees straight. Place a pillow under your stomach. If your kneecap is uncomfortable, roll up a washcloth and put it under your leg just above your kneecap. Lift the foot of your affected leg by bending your knee so that you bring your foot up toward your buttock. If this motion hurts, try it without bending your knee quite as far. This may help you avoid any painful motion. Slowly move your leg up and down. Repeat 8 to 12 times. When you can do this exercise with ease and no pain, add some resistance. To do this: Tie the ends of an exercise band together to form a loop. Attach one end of the loop to a secure object or shut a door on it to hold it in place. (Or you can have someone hold one end of the loop to provide resistance.) Loop the other end of the exercise band around the lower part of your affected leg. Repeat steps 1 through 4, slowly pulling back on the exercise band with your leg. Hip extension Stand facing a wall with your hands on the wall at about chest level. Keeping the knee of your affected leg straight, kick that leg straight back behind you. Relax, and lower your leg back to the starting position. Repeat 8 to 12 times. When you can do this exercise with ease and no pain, add some resistance. To do this: Tie the ends of an exercise band together to form a loop. Attach one end of the loop to a secure object or shut a door on it to hold it in place. (Or you can have someone hold one end of the loop to provide resistance.) Loop the other end of the exercise band around the lower part of your affected leg. Repeat steps 1 through 4, slowly pulling back on the exercise band with your leg. Hamstring wall stretch Lie on your back in a doorway, with your good leg through the open door. Slide your affected leg up the wall to straighten your knee. You should feel a gentle stretch down the back of your leg. Hold the stretch for at least 1 minute to begin. Then try to lengthen the time you hold the stretch to as long as 6 minutes. Repeat 2 to 4 times. If you do not have a place to do this exercise in a doorway, there is another way to do it: Lie on your back, and bend the knee of your affected leg. Loop a towel under the ball and toes of that foot, and hold the ends of the towel in your hands. Straighten your knee, and slowly pull back on the towel. You should feel a gentle stretch down the back of your leg. Hold the stretch for 15 to 30 seconds. Or even better, hold the stretch for 1 minute if you can. Repeat 2 to 4 times. Do not arch your back. Do not bend either knee. Keep one heel touching the floor and the other heel touching the wall. Do not point your toes. Calf stretch Stand facing a wall with your hands on the wall at about eye level. Put your affected leg about a step behind your other leg. Keeping your back leg straight and your back heel on the floor, bend your front knee and gently bring your hip and chest toward the wall until you feel a stretch in the calf of your back leg. Hold the stretch for 15 to 30 seconds. Repeat 2 to 4 times. Repeat steps 1 through 4, but this time keep your back knee bent. Single-leg balance Stand on a flat surface with your arms stretched out to your sides like you are making the letter T. Then lift your good leg off the floor, bending it at the knee. If you are not steady on your feet, use one hand to hold on to a chair, counter, or wall. Standing on your affected leg, keep that knee straight. Try to balance on that leg for up to 30 seconds. Then rest for up to 10 seconds. Repeat 6 to 8 times. When you can balance on your affected leg for 30 seconds with your eyes open, try to balance on it with your eyes closed. When you can do this exercise with your eyes closed for 30 seconds and with ease and no pain, try standing on a pillow or piece of foam, and repeat steps 1 through 4. Follow-up care is a walker part of your treatment and safety. Be sure to make and go to all appointments, and call your doctor if you are having problems. It's also a good idea to know your test results and keep a list of the medicines you take. Care instructions adapted under license by [facility]. This care instruction is for use with your licensed healthcare professional. If you have questions about a medical condition or this instruction, always ask your healthcare professional. [employer] disclaims any warranty or liability for your use of this information. [email or web address] Not available 07/04/2021 10:07:58 Reason for Referral None Reported. Procedures Surgical History Date Name Laterality Status Provider Name and Address Organization Details Recorded Time angioplasty of blood vessel completed Umesh Paez NP [address] [place] [address], [place], [id number], [place] [facility] 07/04/2021 09:30:33 Imaging Results None recorded. Procedure Notes None recorded. Medical Equipment None Reported. Allergies No known drug allergies Medications Name Sig Start Date Stop Date Status Note LastModified by Organization Details LastModified Time atorvastatin 40 mg tablet active Not Available Not Available Not Available fenofibrate micronized 134 mg capsule active Not Available Not Available N ot Available ketorolac 10 mg tablet Take 1 tablet every 8 hours by oral route for 5 days. 2020 active Not Available Not Available Not Avai lable cephalexin 500 mg capsule TAKE 1 CAPSULE BY MOUTH TWICE DAILY WITH FOOD AND GLASS OF WATER FOR 5 DAYS active Not Available Not Available No t Available lisinopril 10 mg tablet active Not Available Not Available No t Available lisinopril 5 mg tablet active Not Available Not Available No t Available mupirocin 2 % topical ointment APPLY TWICE DAILY TO BIOSPY SITES UNTIL HEALED active Not Available Not Available No t Available metoprolol succinate ER 25 mg tablet,extende d release 24 hr active Not Available Not Available Not Available metformin ER 500 mg tablet,extende d release 24 hr active Not Available Not Available Not Available Januvia 100 mg tablet active Not Available Not Available Not Available Sodium Fluoride 5000 Plus 1.1 % dental cream USE EVERY MORNING AND EVERY EVENING active Not Available Not Available No t Available Vitals Date Recorded Oxygen saturation Oxygen saturation in Arterial blood by Pulse oximetry Respiratory rate Heart rate Body temperature Systolic blood pressure Diastolic blood pressure Provider Name and Address Organization Details Last Updated DateTime 98 % 98 % 18 /min 75 /min 98.6 [degF] 118 mm[Hg] 70 mm[Hg] Not Available [facility] 09:02:58 Social History Question Answer Notes LastModified by Organizat ion Details LastModified Time Tobacco Smoking Status Never Smoker Umesh Paez NP [address] [place], [address], [place] - [facility] 07/04/2021 09:29:28 Do You Have An Advance Directive? No [email or web address] Information not available 07/04/2021 What Is Your Level Of Alcohol Consumption? Occasional [email or web address] Information not available 07/04/2021 What Is Your Code Status? Full Code [email or web address] Information not available 07/04/2021 Within The Past 12 Months, Has It Happened That The Food You Bought Just Didn't Last And You Didn't Have Money To Get More. No [email or web address] Information not available 07/04/2021 Within The Past 12 Months, Have You Worried That Your Food Would Run Out Before You Got Money To Buy More. No [email or web address] Information not available 07/04/2021 Fall Risk: Do You Feel Unsteady When Standing Or Walking? No [email or web address] Information not available 07/04/2021 We Know That How And When People Interact With Friends And Family Can Be Very Different From Person To Person. How Often Do You Have The Opportunity To See Or Talk To People That You Care About And Feel Close To? (Ex: Talking To Friends On The Phone Or Visiting Friends Or Family Or Going To Congregation Or Club Meetings) 3 Or 4 Times Per Week [email or web address] Information not available 07/04/2021 Excessive Alcohol Or Drug Use No [email or web address] Information not available 07/04/2021 Does This Patient Have A PCP? Yes [email or web address] Information not available 07/04/2021 We Know From Many Of Our Patients That Covering All Of Their Costs Can Be Difficult At Times. This Can Cause Stress And Impact Health. In The Past Year, Have You Been Unable To Get Any Of The Following When It Was Really Needed? No [email or web address] Information not available 07/04/2021 What Is Your Housing Situation Today? I Have Housing [email or web address] Information not available 07/04/2021 Would You Like Help Connecting To Resources? None [email or web address] Information not available 07/04/2021 Do You Use Any Illicit Or Recreational Drugs? No [email or web address] Information not available 07/04/2021 Do You Or Have You Ever Used Any Other Forms Of Tobacco Or Nicotine? No [email or web address] Information not available 07/04/2021 Sex: Unknown Functional Status None recorded. Mental Status None recorded. Family History Nothing Reported. Medical History Condition Response Diabetes Y Coronary Artery Disease N CHF N Parkinson's Disease N Cancer N Dementia N Stroke N Asthma N COPD N Depression N Hypothyroidism N High Cholesterol Y Rheumatoid Arthritis N Pulmonary Embolism N Hypertension Y Osteoporosis N A-fib N Kidney Disease N Past Encounters Encounter ID Performer Location Encounter Start Date Encounter Closed Date Diagnosis/Indication Diagnosis SNOMED-CT Code Diagnosis ICD10 Code Diagnosis Note [id number] Umesh Paez NP [facility] - [address] [address] 07/04/2021 08:57:00 07/04/2021 10:15:40 Strain of hamstring muscle [id number] 04 S76.311A Health Concerns Section Related Observation LastModified by Organization Detai ls LastModified Time None Recorded Concern Status LastModified by Organization Details LastModified Time None Recorded Advance Directives Directive N: Payers Encounter Date Sequence Insurance Name Policy Number Policy Green Covered Member ID Green Member ID Guarantor Name 07/04/2021 1 [employer] - [employer] - MEDICARE SOLUTIONS - MEDICARE COMPLETE (MEDICARE REPLACEMENT HMO) [id number] Gurpreet Eaton [id number] Gurpreet Eaton Notes Date Note Type Note Provider Name and Address Organization Details Recorded Time 07/04/2021 text/html Pt states he initially injured his right hamstring this past summer when playing pickle ball states he re-injured it approxiamtely 10 days ago. States he tried to go play again yesterday but it was still hurting. States it is a pulling type pain when he tries to stretch or run. Umesh Paez, AMARA [address] [place] [address], [phone], [place] - [facility] 07/04/2021 10:08:26
--- OUTSIDE RECORDS SUMMARY | 2024-10-13 07:37 | XMS_ITS ---
Author Name [facility] Organization Unknown Care Team Organization Name Specialty Phone Email Start Date End [facility] 02/13/2021 02/13/2021
--- OUTSIDE RECORDS SUMMARY | 2024-10-13 07:37 | XMS_ITS | Clinical Summary ---
Author Organization [address] [facility] Address [address] [place] [address] Phone Care Team Providers Care Weight And Test Bar Clerk Name Role Phone Hieu Christina MD Primary [...] 3:00 PM EST Consult Orthopedic Surgery - [place] [address] [address] Maykel Montes De Oca DPM [...] complete this topic Insurance [employer] MEDICARE Care Teams Weight And Test Bar Clerk Relationship Specialty Start Date End Date Hieu Christina MD [address] [place] [address] Dr [place] PCP - General Family Medicine 06/29/24
[2024-10-13 11:18] LABS: MANUAL DIFF FLAG NO
[2024-10-13 11:32] LABS: Basophils Absolute Auto 0.1 X10*3/uL (0.0-0.2); Basophils Percent Auto 1.2 % (0-2); Eosinophils Absolute Auto 0.2 X10*3/uL (0.0-0.4); Eosinophils Percent Auto 2.6 % (0-4); Hematocrit 45.3 % (42.0-52.0); Hemoglobin 14.9 g/dl (14.0-18.0); Imm Gran Abs Auto 0.02 X10*3/uL (0.00-0.03); Imm Gran Pct Auto 0.2 % (0.0-0.4); Lymphocytes Absolute Auto 2.6 X10*3/uL (1.2-4.9); Lymphocytes Percent Auto 32.6 % (20-40); Mean Corpuscular HGB Conc 32.9 g/dl (31.0-36.0); Mean Corpuscular Hemoglobin 31.4 pg (27.0-33.0); Mean Corpuscular Volume 95.4 fL (80.0-98.0); Mean Platelet Volume 10.4 fL (9.4-12.4); Monocytes Absolute Auto 0.5 X10*3/uL (0.1-1.2); Monocytes Percent Auto 6.7 % (2-11); Neutrophils Absolute Auto 4.6 x10*3/uL (2.0-8.3); Neutrophils Percent Auto 56.7 % (45-73); Platelet Count 239 X10*3/uL (160-400); Red Blood Count 4.75 X10*6/uL (4.60-5.80); Red Cell Distribution Width 13.4 % (11.0-16.0); White Blood Count 8.1 X10*3/uL (4.8-10.8)
[2024-10-13 12:01] LABS: Alanine Aminotransferase 23 U/L (0-40); Albumin Level 4.2 g/dL (3.5-5.0); Alkaline Phosphatase 54 U/L (39-117); Anion Gap 10 (12-20); Aspartate Amino Transferase 29 U/L (5-37); Bilirubin Total 0.7 mg/dL (0.0-1.0); Blood Urea Nitrogen 12 mg/dL (9-16); Calcium 9.3 mg/dL (8.4-10.2); Carbon Dioxide 25 mmol/L (22-29); Chloride 110 mmol/L (96-108); Cholesterol 105 mg/dL (<200); Estimated Glomerular Filt Rate > 60; Glucose Fasting 106 mg/dL (60-99); HDL Cholesterol 34 mg/dL (>40); LDL Cholesterol Calculated 61 mg/dL (<100); Potassium 4.4 mmol/L (3.3-5.1); Sodium 141 mmol/L (135-145); Total Protein 7.1 g/dL (6.5-8.0); Triglycerides 50 mg/dL (<150)
[2024-10-13 12:06] LABS: Prostate Specific Antigen Scr 0.81 ng/mL (<0.05-4.0)
[2024-10-13 12:19] LABS: TSH reflex Free T4 1.34 uIU/mL (0.32-4.0)
[2024-10-13 14:19] LABS: Appearance Urine Clear; Color Urine Yellow; Glucose Urine UA Negative (Negative); Leukocyte Esterase Urine Negative (Negative); Nitrite Urine Negative (Negative); Specific Gravity - Urine 1.015 (1.005-1.025); Urine Blood Negative (Negative); Urine Ketones Negative (Negative); Urine Protein Negative (Neg-Trace)
[2024-10-13 14:48] LABS: Creatinine Urine 70.32 mg/dL; Microalbum/Creatinine Ratio Ur 11.3 ug/mg cr (<30)
== END 2024-10-13 07:35 | disposition home or self-care (01) ==
LOC: HO.WFDLDS 07:34
PROVIDERS: Visit Provider Family Medicine
DX: E11.9 Type 2 diabetes mellitus without complications (principal); I10 Essential (primary) hypertension; I25.10 Atherosclerotic heart disease of native coronary artery without angina pectoris; M72.2 Plantar fascial fibromatosis; N52.9 Male erectile dysfunction, unspecified; E78.2 Mixed hyperlipidemia; Z12.5 Encounter for screening for malignant neoplasm of prostate; Z00.00 Encounter for general adult medical examination without abnormal findings
CPT/HCPCS: 36415; 80053; 80061; 81003; 82043; 82570; 83036; 84153; 84443; 85025; 96127; 99212

== ENCOUNTER 2024-10-13 15:43 | Outpatient (AMB) | payer MEDICARE, SELFPAY ==
--- NOTE | 2024-10-13 16:35 | A.OFFPC_ITS ---
Vital Signs 10/13/24 16:47 Height 5 ft 10 in Weight 146 lb BMI 20.9 BP 110/60 Blood Pressure Location Lt brachial Position Sitting Respiration 16 Pulse 71 Pulse Source Pulse Oximeter Temp 98.9 F Temp Source Oral Pulse Oximetry (%) 96 Oxygen Delivery Method Room Air Intake Visit Reasons: Fu?diabetes/hypertension/?chronic?conditions Intake Note: patient is scheduled for dm htn and chronic conditions Planting Supervisor Required: No Allergies environmental allergies Allergy (Mild, Verified 10/13/24 16:49) itchy, watery eyes, sneezing, coughing. Medication List - Last Reconciled 10/13/24 by Hieu Christina MD aspirin (Adult Aspirin Regimen) 81 mg PO DAILY atorvastatin 40 mg PO DAILY 90 days bisacodyl (Dulcolax (bisacodyl)) 20 mg (4 x 5 mg) PO ONCE 1 day docusate sodium 100 mg PO BEDTIME fenofibrate micronized 134 mg PO DAILY lisinopril 10 mg PO DAILY 90 days metformin ER 500 mg PO BID metoprolol succinate ER 25 mg PO DAILY klcftsba-xhv-mvvbt-vit K-lycop 400-20-300 mcg (One-A-Day Men's Multivitamin) tabs PO polyethylene glycol 3350 (Miralax) 238 grams PO ONCE sildenafil 50 mg PO DAILY PRN 30 days sitagliptin phosphate (Januvia) 100 mg PO DAILY 90 days vitamin B complex (B Complex-Vitamin B12 tablet) 1 tab PO DAILY Tobacco use date assessed: 06/21/24 Dental Screening Dental Screen Date: 06/21/24 HPI Fu?diabetes/hypertension/?chronic?conditions HPI Details 69 y/o male presents to f/u diabetes, HT N, chronic conditions. Labs drawn 10/13/24. Reviewed labs with pt. Fasting glucose of 106. Triglycerides 50. TC 105. LDL 61. HDL low at 34. He is on artovastatin 40mg daily. PSA 0.81. A1c today 10/13/24 is 6.1%. He notes sildenafil has been helping. [facility] Medical History History of Mohs micrographic surgery for skin cancer Surgical History Hx of colonoscopy (~2014) History of tooth extraction History of bone graft No pertinent past surgical history Social History Household Members: Spouse Housing: House Alcohol intake: current Alcohol intake frequency: holidays/special occasions only Alcohol type: beer Patient Tobacco Use Status: Current everyday Tobacco user Tobacco use type: Cigarette Cigarette Packs Per Day: 1 Years Smoked: 45 e-Cigarette/Vaping Use: Never Used Second Hand Smoke Exposure: No service: No Current occupational status: retired Current occupation: right handed Current occupational exposures/hazards: No Sexual orientation: Unable to collect Gender identity: Unable to collect Cognitive needs: No Hearing needs: No Vision needs: No Questionnaire PHQ-9 Over the last 2 weeks, how often have you been bothered by any of the following problems? 1. Little interest or pleasure in doing things: not at all 2. Feeling down, depressed, or hopeless: not at all 3. Trouble falling or staying asleep, or sleeping too much: not at all 4. Feeling tired or having little energy: not at all 5. Poor appetite or overeating: not at all 6. Feeling bad about yourself - or that you are a failure or have let yourself or your family down: not at all 7. Trouble concentrating on things, such as reading the newspaper or watching television: not at all 8. Moving or speaking so slowly that other people could have noticed. Or the opposite - being so fidgety or restless that you have been moving around a lot more than usual: not at all 9. Thoughts that you would be better off or of hurting yourself in some way: not at all Total score: 0 Source: Developed by Drs. Rupert Milton, Diane Putnam, Mac Hamilton and colleagues, with an educational lolis from [employer]. Thrive Questionnaire Date Thrive assessed: 06/15/24 I am a: Patient What is your living situation today?: I have a steady place to live Within the past 12 months, did the food you bought not last and you didn't have the money to get more?: Never true Within the past 12 months, did you worry whether your food would run out before you got money to buy more?: Never true Do you have trouble paying for medicines?: No Do you have trouble getting transportation to medical appointments?: No Do you have trouble paying your heating and electricity bill?: No Do you have trouble taking care of your child, family member or friend?: No Do you have trouble with day-to-day activities such as bathing, preparing meals, shopping, managing finances, etc.?: No Are you currently unemployed and looking for a job?: No Are you interested in more education?: Yes Please select the resources that you would like help with: None Currently or been in a relationship where the following occur: No concerns reported THRIVE Score: 0 AUDIT C Alcohol Use Questionnaire (AUDIT-C) 1. How often do you have a drink containing alcohol?: 2-4 times a month 2. How many drinks containing alcohol do you have on a typical day when you are drinking?: 1 or 2 3. How often do you have six or more drinks on one occasion?: Never Total Score: 2 NIGHAT-7 AMB Questionnaire NIGHAT-7 Date NIGHAT - 7 assessed: 06/21/24 Feeling nervous, anxious, or on edge: 0 = Not at all Not being able to stop or control worryin = Not at all Worrying too much about different things: 0 = Not at all Trouble relaxin = Not at all Being so restless that it is hard to sit still: 1 = Several days Becoming easily annoyed or irritable: 0 = Not at all Feeling afraid as if something awful might happen: 0 = Not at all Total NIGHAT-7 score (0-4 normal; 5-9 mild; 10-14 moderate; 15-21 severe): 1 Source: Developed by Drs. Rupert Milton, Diane Putnam, Mac Hamilton and colleagues, with an educational lolis from [employer]. Review of Systems Const Denies chills, Denies fatigue, Denies fever(s), Denies headache(s) and Denies weakness ENT Denies dizziness and Denies headache(s) Card Denies chest pain, Denies lightheadedness, Denies dyspnea and Denies other (Palpitations) Resp Denies cough, Denies dyspnea, Denies wheezing and Denies other ( shortness of breath) Musc Denies numbness and Denies tingling Neuro Denies dizziness, Denies headache(s), Denies numbness, Denies tingling, Denies paresthesias and Denies weakness Psych Denies anxiety and Denies depression Endo Denies fatigue Aller/Immun Denies wheezing Physical exam (Primary Care) Tobacco/Smoking Status: Tobacco use Status Tobacco use date assessed 06/21/24 10/13/24 16:37 Patient Tobacco Use Status Current everyday Tobacco 10/13/24 16:37 Tobacco use type Cigarette 10/13/24 16:37 e-Cigarette/Vaping Use Never Used 10/13/24 16:37 PHQ-9: PHQ-9 Score PHQ-9: Total score 0 10/13/24 16:37 Thrive Assessment: Date of Thrive Assessment Date Thrive assessed 06/15/24 10/13/24 16:37 Currently or been in a relationship where the following occur: No concerns reported Const General: no acute distress and well developed Nutritional Appearance: well nourished Orientation/consciousness: patient oriented x3 HENMT Head: Yes normocephalic and Yes atraumatic Eyes General: appearance normal, both eyes and all related structures Pupils: Equal, round and reactive pupils present EOM: EOMs intact bilaterally Resp Effort & Inspection: normal respiratory effort Auscultation: clear to auscultation bilaterally Cardio Rate: regular rate Rhythm: regular rhythm Heart sounds: S1 normal heart sound present, S2 normal heart sound present, no gallops, no murmurs and no rubs Neuro General: patient oriented x3 and gait normal Cranial nerves: Yes Equal, round and reactive pupils present Psych Affect: normal affect Results AMB Hemoglobin A1c AMB Hemoglobin A1c 6.1 % Last Edit by DIANA Vick on 10/13/24 16:51 Coding Level of Care Code Est Pt Level 4 (08435) Diagnoses Diabetes type 2, controlled E11.9 Essential hypertension I10 CAD (coronary artery disease) I25.10 Plantar fasciitis M72.2 Erectile dysfunction N52.9 Hyperlipidemia, mixed E78.2 Assessment & Plan Assessment & Plan (1) Diabetes type 2, controlled: Code(s): E11.9 - Type 2 diabetes mellitus without complications Category: Medical Plan: A1c: ?6.1%.??Good?control.??Goal?is?less?than?7?1?0% Continue?current?medications (2) Essential hypertension: Code(s): I10 - Essential (primary) hypertension Category: Medical Plan: Blood?pressure?is?controlled.??Goal?is?less?than?130/80 Continue?current?medication?regimen (3) CAD (coronary artery disease): Code(s): I25.10 - Atherosclerotic heart disease of [place] coronary artery without angina pectoris Category: Medical Plan: Stable (4) Plantar fasciitis: Code(s): M72.2 - Plantar fascial fibromatosis Category: Medical Plan: Patient?saw?[facility]?for?plantar?fasciitis (5) Erectile dysfunction: Code(s): N52.9 - Male erectile dysfunction, unspecified Category: Medical Plan: Gave?patient?a?script?for?sildenafil?at?last?visit This?is?working No?adverse?effects He?would?like?to?increase?the?dose.??Will?increase?to?100?mg?per?dose (6) Hyperlipidemia, mixed: Code(s): E78.2 - Mixed hyperlipidemia Category: Medical Plan: Mildly?low?HDL He?is?exercising?regularly. Will?be?to?monitor Orders: Orders AMB Hemoglobin A1c Today E11.9 - Type 2 diabetes mellitus without complications Medications: Changed From sildenafil administer 30 minutes to 4 hours before activity 50 mg PO DAILY 30 days PRN 6 tabs 3RF sexual activity To sildenafil administer 30 minutes to 4 hours before activity 100 mg PO DAILY 90 days PRN 14 tabs 3RF sexual activity
[2024-10-13 16:47] VITALS: BP 110/60; PULSE 71; RESP 16; TEMP 37.2; O2SAT 96; BMI 20.9
--- OUTSIDE RECORDS SUMMARY | 2024-10-13 17:51 | XMS_ITS | Clinical Summary ---
Author Organization [address] [facility] Address [address] [place] [address] Phone Care Team Providers Care Dish Up Person Name Role Phone Hieu Christina MD Primary [...] 3:00 PM EST Consult Orthopedic Surgery - [place] [address] [phone] Maykel Montes De Oca DPM [...] Vaccines Completed 12/31/2018, 12/13, 07/18/2018 RSV Immunization Adult Patients Completed 07/22/2023 COVID-19 Vaccine Completed 05/17/2024, , [...] complete this topic Insurance [place] [phone] Care Teams Dish Up Person Relationship Specialty Start Date End Date Hieu Christina MD [address] [place] [address] [address] [place] PCP - General Family Medicine 06/29/24
--- OUTSIDE RECORDS SUMMARY | 2024-10-13 17:51 | XMS_ITS | Clinical Summary ---
Author Organization [facility] Address [address] [place] [address] Care Team Providers Care Dairy Consultant Name Role Phone Unknown Primary Care Provider [phone] Allergies No known active allergies Medications Medication [...] age to complete this topic Care Teams Dairy Consultant Relationship Specialty Start Date End Date Unknown Unknow Provider Address PCP - General 01/21/19
--- OUTSIDE RECORDS SUMMARY | 2024-10-13 17:51 | XMS_ITS | Encounter Summary ---
Author Organization [facility] Address [address] [place] [address] Care Team Providers Care Restrooms Or Lounges Maid Name Role Phone Unknown Primary Care Provider [phone] Encounter Details Date Type Department Care Team (Late st Contact Info) Description 02/13/2021 8:52 AM EDT Hospital Encounter [facility] [address] [place] [phone] Jonathan Dent MD [address] [place] [phone] Social History Tobacco Use Types Packs/Day Years [...] on filedocumented in this encounter Care Teams Restrooms Or Lounges Maid Relationship Specialty Start Date End Date Unknown Unknow Provider Address PCP - General 01/21/19 documented as of this encounter
== END 2024-10-13 16:59 | disposition home or self-care (01) ==
LOC: HO.HMCFM 15:44
PROVIDERS: PCP Family Medicine; Visit Provider Family Medicine
DX: E11.9 Type 2 diabetes mellitus without complications (principal); I10 Essential (primary) hypertension; I25.10 Atherosclerotic heart disease of native coronary artery without angina pectoris; M72.2 Plantar fascial fibromatosis; N52.9 Male erectile dysfunction, unspecified; E78.2 Mixed hyperlipidemia

== ENCOUNTER 2024-11-18 07:51 | Day surgery (SDC) | payer MEDICARE, SELFPAY ==
[2024-11-16 13:34] VITALS: BMI 25.3
--- OUTSIDE RECORDS SUMMARY | 2024-11-17 08:37 | XMS_ITS | Encounter Summary ---
Author Organization [facility] Address [address] [place] [address] Care Team Providers Care Water Quality Tester Name Role Phone Unknown Primary Care Provider [phone] Encounter Details Date Type Department Care Team (Late st Contact Info) Description 02/13/2021 8:52 AM EDT Hospital Encounter [facility] [address] [place] [phone] Jonathan Dent MD [address] [place] [phone] Social History Tobacco Use Types Packs/Day Years [...] on filedocumented in this encounter Care Teams Water Quality Tester Relationship Specialty Start Date End Date Unknown Unknow Provider Address PCP - General 01/21/19 documented as of this encounter
--- OUTSIDE RECORDS SUMMARY | 2024-11-17 08:37 | XMS_ITS | Clinical Summary ---
Author Organization [address] [facility] Address [address] [place] [address] Phone Care Team Providers Care Solid Tire Tuber Machine Operator Name Role Phone Hieu Christina MD Primary [...] 1 (one) time each day. 07/19/2024 Active Social History Tobacco Use Types Packs/Day Years [...] 08/12/2024 Hypertension/CHF/CAD Annual BMP Blood Test 08/12/2024 COVID-19 Vaccine ( season) 2024 05/17/2024, 04/25/2022, 10/21/2021, Additional history exists DTaP,Tdap,and Td Vaccines (4 - Td or Tdap) 12/14/2033 12/15/2023, 03/04/2017, 01/16/2010 Zoster Vaccines Completed 12/31/2018, 12/13, 07/18/2018 RSV Immunization Adult Patients Completed 07/22/2023 Influenza Vaccine Completed 05/17/2024, , 05/29/2021, Additional [...] age to complete this topic Meningococcal B Vaccine Aged Out No l onger eligible based on patient's age to complete this topic RSV Immunization Patients Under 20 months Aged Out No longer eligible based on patient's age to complete this topic Varicella Vaccines Aged Out No longer eligible based on patient's age to complete this topic Insurance [employer] MEDICARE Care Teams Solid Tire Tuber Machine Operator Relationship Specialty Start Date End Date Hieu Christina MD [address] [place] [address] [address] [place] PCP - General Family Medicine 06/29/24
--- OUTSIDE RECORDS SUMMARY | 2024-11-17 08:37 | XMS_ITS | Clinical Summary ---
Author Organization [facility] Address [address] [place] [address] Care Team Providers Care Council On Aging Director Name Role Phone Unknown Primary Care Provider [phone] Allergies No known active allergies Medications metFORMIN (GLUCOPHAGE) 500 MG tablet Take 1,000 [...] RELIEF) 10 MG Cap Take by mouth. Active sitaGLIPtin (JANUVIA) 100 MG tablet Take 100 mg by mouth daily. Active lisinopril (PRINIVIL,ZeSTRI L) 5 MG tablet Take 5 mg by [...] patient's age to complete this topic Insurance [facility] MEDICARE Care Teams Council On Aging Director Relationship Specialty Start Date End Date Unknown Unknow Provider Address PCP - General 01/21/19
--- OUTSIDE RECORDS SUMMARY | 2024-11-17 08:37 | XMS_ITS | Data Portability ---
Author Organization [place] [facility] Address [address] [place] [phone] Care Team Providers Care Career Portals Teacher Name Role Phone KENRICK EVANS Primary Care Provider [phone] Assessment Encounter Date Assessment Date Assessment LastModified [...] PRN Time On Scene with Patient: 00:37:04 [email or web address] Not available 07/04/2021 10:05:34 Plan of Treatment Reminders Order Date Submit Date Provider Last Modified By Organization Details Last Modified Time Details Appointments None recorded. Lab None recorded. Referral None recorded. Procedures None recorded. Surgeries None recorded. Imaging None recorded. Medication Orders ketorolac 10 mg tablet 2020 021 [facility][id number], [address] [facility], [facility], [place], [phone], 10:07:02 Patient TargetsNo targets recorded. Patient Instructions Encounter Date Encounter Id Patient Instructions Last Modified By Organization Details Last Modified Time 07/04/2021 [id number] hamstring strain : rehab exercises [email or web address] Not available 07/04/2021 10:08:01 hamstring strain : care instructions [email or web address] Not available 07/04/2021 10:07:59 Hamstring Strain: Care [...] your doctor if you can take an itdm-gym-maxdgin pain medicine, such as acetaminophen (Tylenol), ibuprofen [...] expected. Care instructions adapted under license by [facility]. This care instruction is for use with your licensed healthcare professional. If you have questions about a medical condition or this instruction, always ask your healthcare professional. [employer] disclaims any warranty or liability for your [...] take. Care instructions adapted under license by [facility]. This care instruction is for use with your licensed healthcare professional. If you have questions about a medical condition or this instruction, always ask your healthcare professional. [employer] disclaims any warranty or liability for your use of this information. [email or web address] Not available 07/04/2021 10:07:58 Reason for Referral None Reported. Procedures Surgical History Date Name Laterality Status Provider Name and Address Organization Details Recorded Time angioplasty of blood vessel completed Umesh Paez NP [address] [place] [address], [place], [phone], [place] [facility] 07/04/2021 09:30:33 Imaging Results None recorded. Procedure [...] [degF] 118 mm[Hg] 70 mm[Hg] Not Available [facility] 09:02:58 Social History Question Answer Notes LastModified by Organizat ion Details LastModified Time Tobacco Smoking Status Never Smoker Umesh Paez NP [address] [place], [address], [place] [facility] 07/04/2021 09:29:28 Do You Have An Advance Directive? No [email or web address] Information not available 07/04/2021 What Is Your Level Of Alcohol Consumption? Occasional [email or web address] Information not available 07/04/2021 What Is Your Code Status? Full Code [email or web address] Information not available 07/04/2021 Within The Past 12 Months, Has It Happened That The Food You Bought Just Didn't Last And You Didn't Have Money To Get More. No [email or web address] Information not available 07/04/2021 Within The Past 12 Months, Have You Worried That Your Food Would Run Out Before You Got Money To Buy More. No [email or web address] Information not available 07/04/2021 Fall Risk: Do You Feel Unsteady When Standing Or Walking? No [email or web address] Information not available 07/04/2021 We Know That How And When People Interact With Friends And Family Can Be Very Different From Person To Person. How Often Do You Have The Opportunity To See Or Talk To People That You Care About And Feel Close To? (Ex: Talking To Friends On The Phone Or Visiting Friends Or Family Or Going To Buddhist Or Club Meetings) 3 Or 4 Times Per Week [email or web address] Information not available 07/04/2021 Excessive Alcohol Or Drug Use No [email or web address] Information not available 07/04/2021 Does This Patient Have A PCP? Yes [email or web address] Information not available 07/04/2021 We Know From Many Of Our Patients That Covering All Of Their Costs Can Be Difficult At Times. This Can Cause Stress And Impact Health. In The Past Year, Have You Been Unable To Get Any Of The Following When It Was Really Needed? No [email or web address] Information not available 07/04/2021 What Is Your Housing Situation Today? I Have Housing [email or web address] Information not available 07/04/2021 Would You Like Help Connecting To Resources? None [email or web address] Information not available 07/04/2021 Do You Use Any Illicit Or Recreational Drugs? No [email or web address] Information not available 07/04/2021 Do You Or Have You Ever Used Any Other Forms Of Tobacco Or Nicotine? No [email or web address] Information not available 07/04/2021 Sex: Unknown Functional Status None recorded. Mental Status None recorded. Family History Nothing Reported. Medical History Condition Response Coronary Artery Disease N COPD N Depression N Hypothyroidism N A-fib N Cancer N Stroke N High Cholesterol Y Rheumatoid Arthritis N Kidney Disease N Parkinson's Disease N Diabetes Y CHF N Dementia N Asthma N Pulmonary Embolism N Hypertension Y Osteoporosis N Past Encounters Encounter ID Performer Location Encounter Start Date Encounter Closed Date Diagnosis/Indication Diagnosis SNOMED-CT Code Diagnosis ICD10 Code Diagnosis Note [id number] Umesh Paez NP [facility] [place] [address] [phone] 07/04/2021 08:57:00 07/04/2021 10:15:40 Strain of hamstring muscle [id number] 04 S76.311A Health Concerns Section Related Observation LastModified by Organization Detai ls LastModified Time None Recorded Concern Status LastModified by Organization Details LastModified Time None Recorded Advance Directives Directive N: Payers Insurance Date Sequence Insurance Name Policy Number Policy Green Covered Member ID Green Member ID Guarantor Name 07/03/2021 1 [employer] - AARP - MEDICARE SOLUTIONS - MEDICARE COMPLETE (MEDICARE REPLACEMENT HMO) [id number] Gurpreet Eaton [id number] Gurpreet Eaton 07/03/2021 1 *SELF PAY* Gurpreet Finnledge [id number] Gurpreet Eaton Notes Date Note Type Note [...] to stretch or run. Umesh Paez, AMARA [address] [place] [address] [place], [address], [place] [facility] 07/04/2021 10:08:26
--- NOTE | 2024-11-17 09:37 | HO.ANESPROP2 ---
HPI - Anesthesia Eval Consult details Narrative: 69yo M for Colonoscopy Follows [facility] cardiology for CAD s/p stenting (remote) - stable at yearly appointment 07/2024 [facility] Active Problems Active Problems: All Active Problems Plantar fasciitis (Acute) Erectile dysfunction (Acute) History of smoking (Acute) Neoplasm of uncertain behavior of skin (Acute) Heel pain (Acute) Arm fracture, left (Acute) Fracture of proximal end of left humerus (Acute) Normal physical examination, routine (Acute) PAD (peripheral artery disease) (Acute) Abnormal peripheral pulse (Acute) Seasonal allergies (Acute) Exposure to COVID-19 virus (Acute) Low HDL (under 40) (Acute) Laboratory examination ordered as part of a routine general medical examination (Acute) Screening for AAA (abdominal aortic aneurysm) (Acute) Need for hepatitis B screening test (Acute) Immunization counseling (Acute) Screening for colon cancer (Acute) Screening for prostate cancer (Acute) Adult general medical exam (Acute) Diabetes type 2, controlled (Acute) Actinic keratosis of scalp (Acute) Nicotine dependence (Acute) Arthritis of both hands (Acute) History of PA (myocardial infarction) (Acute) COPD (chronic obstructive pulmonary disease) (Acute) CAD (coronary artery disease) (Acute) Essential hypertension (Acute) Hyperlipidemia, mixed (Acute) Diabetes type 2, controlled (Acute) Past Medical History Medical History (Updated 11/16/24 @ 13:16 by Carola Gold RN) Skin cancer Hyperlipidemia HTN (hypertension) Arthritis Myocardial infarction Diabetes PAD (peripheral artery disease) CAD (coronary artery disease) COPD (chronic obstructive pulmonary disease) History of Mohs micrographic surgery for skin cancer Surgical History Surgical History (Updated 11/16/24 @ 13:32 by Carola Gold RN) Hx of heart artery stent Hx of colonoscopy (~2014) History of tooth extraction History of bone graft Social History Social History Household Members: Spouse Housing: House Alcohol intake: current Alcohol intake frequency: holidays/special occasions only Alcohol type: beer Patient Tobacco Use Status: Current everyday Tobacco user Tobacco use type: Cigarette Cigarette Packs Per Day: 1 Years Smoked: 45 e-Cigarette/Vaping Use: Never Used Second Hand Smoke Exposure: No service: No Current occupational status: retired Current occupation: right handed Current occupational exposures/hazards: No Sexual orientation: Unable to collect Gender identity: Unable to collect Cognitive needs: No Hearing needs: No Vision needs: No Meds Allergies Allergy/AdvReac Type Severity Reaction Status Date / Time environmental allergies Allergy Mild itchy, Verified 10/13/24 16:49 watery eyes, sneezing, coughing. Home Medications ?Medication ?Instructions ?Recorded ?Confirmed ?Last Taken ?Type aspirin 81 mg tablet,delayed 81 mg PO DAILY 05/03/20 11/16/24 05/22/22 History release (Adult Aspirin Regimen) fenofibrate micronized 134 mg 134 mg PO DAILY 05/03/20 11/16/24 05/22/22 History capsule metoprolol succinate 25 mg 25 mg PO DAILY 06/13/21 11/16/24 05/22/22 History tablet,extended release 24 hr mcfsbebh-skmiecje-faxfb acid 400 1 tab PO DAILY 12/26/22 11/16/24 Unknown History mcg-vit K 20 mcg-lycop 300 mcg tablet (One-A-Day Men's Multivitamin) vitamin B complex (B 1 tab PO DAILY 12/26/22 10/13/24 Unknown History Complex-Vitamin B12 tablet) Exam Height,Weight and Vital Signs: Height 5 ft 10 in Weight 79.832 kg Narrative Narrative: EKG 07/2024 NSR @ 68 Assessment and Plan Assessment Anesthesia Assessment: Chart Reviewed
[2024-11-18] MEDS: Lactated Ringers 1,000 ML 100 ML IVCONT (08:11)
[2024-11-18 08:19] VITALS: BP 118/75; PULSE 97; RESP 18; TEMP 36.7; O2SAT 97
[2024-11-18 08:25] LABS: Glucose, Whole Blood 113 mg/dL (60-115)
--- NOTE | 2024-11-18 09:30 | MHC.SHP ---
Pre-Procedural Eval Section A - 24 Hr Update-Section A only Date of Service: 11/18/24 Section B - Complete if H&P > 30 days Chief Complaint: screening Relevant Family History (Specify if Yes): No Relevant Social History: Tobacco Use Present Medications: see Short Stay Collaborative assessment Medical History: Significant History (PID, history of PA, COPD, hypertension, hyperlipidemia, diabetes) History of Previous Operations: Relevant previous surgery/procedure and date(s) (colonsocopy ) Allergies: Allergies Allergy/AdvReac Type Severity Reaction Status Date / Time environmental allergies Allergy Mild itchy, Verified 11/18/24 08:05 watery eyes, sneezing, coughing. Review of Systems Sugical H&P ROS: Negative: Constitution, Cardiovascular, Respiratory, Neurological, Psychiatric, Hem-Onc, Allergic/Immunologic, Gastrointestinal, Genitourinary, Musculoskeletal, Integumentary, Endocrine and Eyes/Ears/Nose/Throat Exam Surgical H&P Exam: Normal: HEENT, Normal: Heart, Normal: Lungs, Normal: Extremities, Normal: Abdomen, Normal: Skin and Normal: Neurological Plan Diagnosis/Plan: Unchanged I have reviewed the history and physical and performed a pertinent physical examination on my patient. No changes have occurred unless specified. Time Spent With Patient Time: Total time managing care of this patient today ____ minutes.
--- NOTE | 2024-11-18 09:54 | P.CONAN_ITS ---
PMFSH Active Problems Active Problems: All Active Problems Plantar fasciitis (Acute) Erectile dysfunction (Acute) History of smoking (Acute) Neoplasm of uncertain behavior of skin (Acute) Heel pain (Acute) Arm fracture, left (Acute) Fracture of proximal end of left humerus (Acute) Normal physical examination, routine (Acute) PAD (peripheral artery disease) (Acute) Abnormal peripheral pulse (Acute) Seasonal allergies (Acute) Exposure to COVID-19 virus (Acute) Low HDL (under 40) (Acute) Laboratory examination ordered as part of a routine general medical examination (Acute) Screening for AAA (abdominal aortic aneurysm) (Acute) Need for hepatitis B screening test (Acute) Immunization counseling (Acute) Screening for colon cancer (Acute) Screening for prostate cancer (Acute) Adult general medical exam (Acute) Diabetes type 2, controlled (Acute) Actinic keratosis of scalp (Acute) Nicotine dependence (Acute) Arthritis of both hands (Acute) History of TN (myocardial infarction) (Acute) COPD (chronic obstructive pulmonary disease) (Acute) CAD (coronary artery disease) (Acute) Essential hypertension (Acute) Hyperlipidemia, mixed (Acute) Diabetes type 2, controlled (Acute) Past Medical History Medical History Skin cancer Hyperlipidemia HTN (hypertension) Arthritis Myocardial infarction Diabetes PAD (peripheral artery disease) CAD (coronary artery disease) COPD (chronic obstructive pulmonary disease) History of Mohs micrographic surgery for skin cancer Functional capacity: independent ambulation Family History Family history of problems with anesthesia: No Surgical History Surgical History Hx of heart artery stent Hx of colonoscopy (~2014) History of tooth extraction History of bone graft History of Problems with Anesthesia: No Social History Social History Household Members: Spouse Household Members Other:: son Housing: House Are you a primary career guidance technician to a significant other at home: No Do you presently have visiting nurse or other home services: No Alcohol intake: current Alcohol intake frequency: holidays/special occasions only Alcohol type: beer Patient Tobacco Use Status: Current everyday Tobacco user Tobacco use type: Cigarette Cigarette Packs Per Day: 1 Years Smoked: 45 Smoked in Last 30 Days: Yes e-Cigarette/Vaping Use: Never Used Patient Interested in Nicotine Replacement: No Second Hand Smoke Exposure: No Have you been hit, kicked, punched, or otherwise hurt by someone within the past year? If so, by whom?: No Are you DNR?: No Advance Directives: No Advance Directives Information Provided: Yes Poor oral hygiene: Yes service: No Current occupational status: retired Current occupation: right handed Current occupational exposures/hazards: No Sexual orientation: Unable to collect Gender identity: Unable to collect Cognitive needs: No Hearing needs: No Vision needs: No Meds Allergies Allergy/AdvReac Type Severity Reaction Status Date / Time environmental allergies Allergy Mild itchy, Verified 11/18/24 08:05 watery eyes, sneezing, coughing. Active Medications: Current Medications Albuterol Sulfate (Albuterol Sulfate (0.083%) 2.5 Mg/3 Ml Vial.Neb) 2.5 mg INHALE ONCE PRN PRN Reason: Shortness of Breath/Wheezing Lactated Ringer's (Lr) 1,000 mls @ 100 mls/hr IVCONT .Q10H WALESKA Last Admin: 11/18/24 08:11 Dose: 100 mls/hr Home Medications ?Medication ?Instructions ?Recorded ?Confirmed ?Last Taken ?Type aspirin 81 mg tablet,delayed 81 mg PO DAILY 05/03/20 11/16/24 05/22/22 History release (Adult Aspirin Regimen) fenofibrate micronized 134 mg 134 mg PO DAILY 05/03/20 11/16/24 05/22/22 History capsule metoprolol succinate 25 mg 25 mg PO DAILY 06/13/21 11/16/24 11/18/24 History tablet,extended release 24 hr hplixxvr-vdzbpsst-osfjp acid 400 1 tab PO DAILY 12/26/22 11/16/24 Unknown History mcg-vit K 20 mcg-lycop 300 mcg tablet (One-A-Day Men's Multivitamin) vitamin B complex (B 1 tab PO DAILY 12/26/22 11/18/24 Unknown History Complex-Vitamin B12 tablet) Exam Height,Weight and Vital Signs: Height 5 ft 10 in Weight 79.832 kg Last Vital Signs Temp 98.0 F 11/18/24 08:19 Pulse 97 11/18/24 08:19 Resp 18 11/18/24 08:19 BP 118/75 11/18/24 08:19 Pulse Ox 97 11/18/24 08:19 O2 Del Method Room Air 11/18/24 08:19 Pertinent Lab Results Pertinent Lab Results: Laboratory Tests 11/18/24 08:13 POC Glucose 113 Airway Mallampati Class: II TM Dist: >3cm Neck ROM: Full Partial: Upper and Lower Heart: RRR Lungs: CTA Assessment and Plan Assessment Anesthesia Assessment: Anesthesia Plan Discussed and Chart Reviewed Final Anesthetic Review Family History of Problems with Anesthesia: No History of Problems with Anesthesia: No NPO: Yes ASA Class: II Final Preanesthetic Review: Meds/Allgs Chart Reviewed, Consent Obtained/Reviewed and Anes Risks/Benef Reviewed Patient Risk: Low Procedure Risk: Low Anesthetic Plan Anesthetic Plan: MAC: Disposition: Standard PACU
--- NOTE | 2024-11-18 10:05 | P.OPN-COLO_ITS ---
Colonoscopy Operative Note Operative Note Date of Service: 11/18/24 Narrative: Operative Information Procedure Description: Colonoscopy Indication: screening Anesthesia: MAC COLONOSCOPY Instrument: Olympus variable stiffness pediatric scope 190L Colonoscopy Monitoring: Vital signs and clinical assessment, continuous EKG monitoring, Pulse oximetry, Carbon Dioxide monitoring and blood pressure monitoring were done throughout the procedure. Colon withdrawal time was 10 minutes. Procedure: The patient was placed in the left lateral decubitis position and pre-procedure medications were administered. After a digital rectal examination of the ano-rectum, the video colonoscope was inserted into the rectum and advanced through the colon to the cecum/TI. The colonoscope was slowly withdrawn in a retrograde panoramic fashion and the colon mucosa was carefully examined including a retroflexed view of the rectum. Findings and interventions are described below. Procedure Difficulty: moderate, pressure applied Findings: Terminal Ileum- superficially intubated, normal Cecum:normal Ascending Colon: 6-8 mm sessile polyp removed with cold snare Transverse Colon -normal Descending Colon:normal Sigmoid Colon: mild diverticulosis Rectum: Retroflexion with small internal hemorrhoids seen, grade I, 4-5 mm sessile polyp removed with cold forceps Anorectum - normal Intervention: cold snare Colon preparation: [place] Bowel Preparation Scale Right colon; 2 Transverse colon: 2 Left colon; 1-2 (0 = Unprepared colon segment with mucosa not seen due to solid stool that cannot be cleared. 1 = Portion of mucosa of the colon segment seen, but other areas of the colon segment not well seen due to staining, residual stool and/or opaque liquid. 2 = Minor amount of residual staining, small fragments of stool and/or opaque liquid, but mucosa of colon segment seen well. 3 = Entire mucosa of colon segment seen well with no residual staining, small fragments of stool or opaque liquid) Impression and Post Procedure Diagnosis: diverticulosis colon polyps x 2 internal hemorrhoids Plan: High fiber diet leaflet Avoid straining at stool, epsom salts and sitz bath, anusol supps or cream Repeat Colonoscopy in 5 years due to polyps and some fair prep areas on the left or earlier if clinically indicated Above findings were reviewed with the patient and relevant handouts were provided if indicated.
[2024-11-18 10:11] VITALS: BP 100/65; PULSE 67; RESP 18; TEMP 36.2; O2SAT 97
[2024-11-18 10:26] VITALS: BP 116/75; PULSE 64; RESP 20; TEMP 36.2; O2SAT 97
== END 2024-11-18 11:12 | disposition home or self-care (01) ==
PROVIDERS: PCP Family Medicine; Visit Provider Internal Medicine Gastroenterology
PROC: 0DJD8ZZ Inspection of Lower Intestinal Tract, Via Natural or Artificial Opening Endoscopic (ICD-10-PCS; CPT 45378; principal; 2024-11-18 10:30)
DX: Z12.11 Encounter for screening for malignant neoplasm of colon (principal); D12.2 Benign neoplasm of ascending colon; K62.1 Rectal polyp; K57.30 Diverticulosis of large intestine without perforation or abscess without bleeding; K64.0 First degree hemorrhoids; F17.210 Nicotine dependence, cigarettes, uncomplicated; E11.9 Type 2 diabetes mellitus without complications; I10 Essential (primary) hypertension; E78.5 Hyperlipidemia, unspecified; J44.9 Chronic obstructive pulmonary disease, unspecified; Z79.82 Long term (current) use of aspirin; Z79.02 Long term (current) use of antithrombotics/antiplatelets; Z79.84 Long term (current) use of oral hypoglycemic drugs; Z79.899 Other long term (current) drug therapy
CPT/HCPCS: 45385; 45380; 82947; 88305; J2003; J2704

== ENCOUNTER → 2024-11-18 07:51 | Outpatient (BNV) | payer MEDICARE, SELFPAY | PROVIDERS: PCP Family Medicine; Visit Provider Internal Medicine Gastroenterology | DX: Z12.11 Encounter for screening for malignant neoplasm of colon (principal); D12.2 Benign neoplasm of ascending colon; K62.1 Rectal polyp; K57.30 Diverticulosis of large intestine without perforation or abscess without bleeding; K64.0 First degree hemorrhoids | CPT/HCPCS: 45380; 45385 ==

== ENCOUNTER 2025-01-03 08:15 | Outpatient (REF) | payer MEDICARE, SELFPAY ==
--- NOTE | ~2025-01-03 | US_ITS ---
EXAMINATION: Noninvasive assessment of the bilateral lower extremities with ARTERIAL DUPLEX, ANKLE BRACHIAL INDICES (ABIs), and PULSE VOLUME RECORDINGS (PVRs). CLINICAL INFORMATION: Peripheral vascular disease, unspecified. TECHNIQUE: Duplex Doppler techniques with waveform analysis and measurement of velocities in the bilateral common femoral, profunda femoris, superficial femoral, popliteal and tibial arteries were performed. Additionally, ankle pulse volume recordings, ankle pressure measurements and ankle brachial indices were obtained of the lower extremity arterial system bilaterally. The study was performed only at rest. COMPARISON: December 05, 2023. FINDINGS: DIRECT DUPLEX DOPPLER FINDINGS: Irregular shaped calcified plaques. RIGHT LEG: Common femoral artery: 120 cm/s, phasicity: Triphasic. Profunda femoris artery: 141 cm/s, phasicity: Triphasic. Superficial femoral artery (proximal): 39 cm/s, phasicity: Biphasic. Superficial femoral artery (mid): 39 cm/s, phasicity: Biphasic. Superficial femoral artery (distal): 19 cm/s, phasicity: Monophasic. Popliteal artery: 16 cm/s, phasicity: Monophasic. Posterior tibial artery: 32 cm/s, phasicity: Monophasic. Peroneal artery: 10 cm/s, phasicity: Monophasic. Anterior tibial artery: 16 cm/s, phasicity: Monophasic. Dorsalis pedis artery: No color Doppler flow. LEFT LEG: Common femoral artery: 150 cm/s, phasicity: Monophasic. Profunda femoris artery: 248 cm/s, phasicity: Monophasic. Superficial femoral artery (proximal): No color Doppler flow. Superficial femoral artery (mid): No color Doppler flow. Superficial femoral artery (distal): 46 cm/s, phasicity: Monophasic. Popliteal artery: 21 cm/s, phasicity: Monophasic. Posterior tibial artery: No color Doppler flow. Peroneal artery: No color Doppler flow. Anterior tibial artery: No color Doppler flow. Dorsalis pedis artery: No color Doppler flow. BRACHIAL PRESSURES: Right: 117 Left: 109 ANKLE PRESSURES: Right: PT 97, DP 78 Left: PT 74, DP not documented. ANKLE-BRACHIAL INDEX: Right: 0.83 Left: 0.63 ANKLE PVR WAVEFORMS: Right: Abnormal Left: Abnormal US/US arterial duplex BI w/ JEAN PIERRE IMPRESSION: Right leg: Severe inflow disease involving the mostly below the knee. Likely occluded right dorsalis base artery. Left leg: Occluded left anterior abdomen posterior tibialis arteries, dorsalis pedis artery and peroneal artery. Severe inflow disease throughout the interrogated arteries. JEAN PIERRE Reference: - >1.4 = calcified vessels - 0.9 - 1.4 = normal - no significant arterial disease - 0.7 - 0.89 = mild peripheral arterial disease - 0.51 - 0.69 = moderate peripheral arterial disease - 0.50 = severe peripheral arterial disease - < .30 = critical arterial disease Electronically signed by: Didier Montague MD 01/03/2025 01:12 PM EDT
--- OUTSIDE RECORDS SUMMARY | 2025-01-03 08:24 | XMS_ITS | Clinical Summary ---
Author Organization [facility] Address [address] [place] [address] Care Team Providers Care Wire Spooler Name Role Phone Unknown Primary Care Provider [phone] Allergies No known active allergies Medications metFORMIN [...] 71 02/13/2021 8:38 AM EDT Temperature 36 C (96.8 F) 02/13/2021 8:38 AM EDT Respiratory Rate 15 [...] Zoster (Shingles) Vaccine (1 of 2) 2004 COVID-19 Vaccine ( - 2023-2 5 season) 2024 Influenza Vaccine 02/11/2025 RSV Vaccine 60 years and old er and Patients (1 - 1-dose 75+ series) 2029 Hepatitis B Vaccines Aged Out No long er eligible based on patient's age to complete this topic Insurance [facility] MEDICARE Care Teams Wire Spooler Relationship Specialty Start Date End Date Unknown Unknow Provider Address PCP - General 01/21/19
== END 2025-01-03 08:16 | disposition home or self-care (01) ==
LOC: HO.US 08:15
PROVIDERS: PCP Family Medicine; Visit Provider Surgery Vascular Surgery
DX: I73.9 Peripheral vascular disease, unspecified (principal)
CPT/HCPCS: 93922; 93925

== ENCOUNTER → 2025-01-03 08:18 | Outpatient (BNV) | payer MEDICARE, SELFPAY | PROVIDERS: PCP Family Medicine; Visit Provider Radiology Diagnostic Radiology | DX: I73.9 Peripheral vascular disease, unspecified (principal) | CPT/HCPCS: 93922; 93925 ==

== ENCOUNTER 2025-01-20 12:57 | Outpatient (AMB) | payer MEDICARE, SELFPAY ==
--- OUTSIDE RECORDS SUMMARY | 2025-01-20 13:00 | XMS_ITS | Clinical Summary ---
Author Organization [facility] Address [address] [place] [address] Care Team Providers Care Cloth Doubling Machine Operator Name Role Phone Unknown Primary Care Provider [phone] Allergies No known active allergies Medications metFORMIN [...] patient's age to complete this topic Insurance [facility] MEDICARE Care Teams Cloth Doubling Machine Operator Relationship Specialty Start Date End Date Unknown Unknow Provider Address PCP - General 01/21/19
--- OUTSIDE RECORDS SUMMARY | 2025-01-20 13:00 | XMS_ITS ---
Author Name [facility] Organization Unknown Care Team Organization Name Specialty Phone Email Start Date End Jameel neri [facility] 02/13/2021 02/13/2021
--- OUTSIDE RECORDS SUMMARY | 2025-01-20 13:00 | XMS_ITS | Clinical Summary ---
Author Organization [facility] Address [address] [place] [address] Phone Care Team Providers Care Charhouse Worker Name Role Phone Hieu Christina MD Primary [...] 2024 05/17/2024, 04/25/2022, 10/21/2021, Additional history exists Influenza Vaccine (#1) 2025 , 04/25/2022, 05/29/2021, Additional history exists DTaP,Tdap,and Td Vaccines (4 - Td or Tdap) 12/14/2033 12/15/2023, 03/04/2017, 01/16/2010 Zoster Vaccines Completed 12/31/2018, 12/13, 07/18/2018 RSV Immunization Adult Patients Completed 07/22/2023 HIB Vaccines Aged Out No longer eligi [...] topic Insurance [facility] MEDICARE Care Teams Charhouse Worker Relationship Specialty Start Date End Date Hieu Christina MD [address] [place] [address] [address] [place] PCP - General Family Medicine 06/29/24
--- NOTE | 2025-01-20 13:01 | MHC.OFFVIS ---
Vital Signs 01/20/25 13:02 Height 5 ft 10 in Weight 178 lb BMI 25.5 Intake Visit Reasons: Follow Up arterial US Intake Note: 1 yr follow up arterial US 01/03/25, pt states no complaints, stays active playing tennis and pickleball. Does state he has bilateral foot numbness from nueropathy. Psychiatric Nursing Aide Required: No Accompanied by: Self / Same As Patient Allergies environmental allergies Allergy (Mild, Verified 01/20/25 13:06) itchy, watery eyes, sneezing, coughing. HPI HPI Follow Up arterial US: Details: The patient is a 69-year-old male presenting for follow-up regarding peripheral vascular disease. He had a diagnostic angiogram in 2021 which demonstrated femoral popliteal occlusion, but he appeared to have been well collateralized from that. He now presents for routine arterial surveillance follow-up. The patient remains active, engaging in activities such as tennis and pickleball, which he plays regularly. He reports being able to walk four to five blocks without any issues, although he occasionally experiences cramps after activities. Recent ultrasound comparisons from December 05, 2023, to January 03, 2025, and now presents for follow-up regarding this. [facility] Medical History Skin cancer Hyperlipidemia HTN (hypertension) Arthritis Myocardial infarction Diabetes PAD (peripheral artery disease) CAD (coronary artery disease) COPD (chronic obstructive pulmonary disease) History of Mohs micrographic surgery for skin cancer Surgical History Hx of heart artery stent Hx of colonoscopy (~2014) History of tooth extraction History of bone graft Social History Household Members: Spouse Household Members Other:: son Housing: House Are you a primary career and transition teacher to a significant other at home: No Do you presently have visiting nurse or other home services: No Alcohol intake: current Alcohol intake frequency: holidays/special occasions only Alcohol type: beer Patient Tobacco Use Status: Current everyday Tobacco user Tobacco use type: Cigarette Cigarette Packs Per Day: 1 Years Smoked: 45 e-Cigarette/Vaping Use: Never Used Second Hand Smoke Exposure: No service: No Current occupational status: retired Current occupation: right handed Current occupational exposures/hazards: No Sexual orientation: Unable to collect Gender identity: Unable to collect Cognitive needs: No Hearing needs: No Vision needs: No Review of Systems Const All systems reviewed & are unremarkable except as noted in HPI and below Reports no additional complaints ENT Reports Normal hearing present Card Denies chest pain, Denies chest pain at rest, Denies chest pain with activity and Denies pedal edema Resp Denies cough GI Denies abdominal pain Musc Denies abnormal gait, Denies muscle cramps and Denies radiating pain into limb Skin/Breast Denies skin ulcer and Denies wounds Neuro Reports Normal hearing present and Denies abnormal gait Psych Reports no additional complaints Physical Exam Vital Signs: BMI result Body Mass Index 25.5 Const General: cooperative, healthy appearing and comfortable Orientation/consciousness: oriented to person, oriented to place and oriented to time HEENT Head: Yes normal to inspection Neck Neck: Yes normal visual inspection Carotids: no bruits Chest Chest palpation & inspection: normal inspection of the chest Resp Effort & Inspection: normal respiratory effort and able to speak in complete sentences Auscultation: clear to auscultation bilaterally, no crackles, no rales, no rhonchi and no wheezes Cardio Other: Bilateral DP signals Rate: regular rate Rhythm: regular rhythm Heart sounds: S1 normal heart sound present and S2 normal heart sound present Bruits: no carotid bruits Peripheral pulses: Peripheral pulses 2+ throughout GI Inspection: Yes normal to inspection Skin Wounds: no wounds Hair: normal Neuro General: oriented to person, oriented to place and oriented to time Cranial nerves: Yes CN's II-XII intact bilaterally and Yes Normal hearing present Cognition (Neuro): normal cognition Motor exam (neuro): 5/5 motor strength present throughout Extrem Other: venous exam: No significant superficial varicosities or spider telangiectasias, minimal edema General: No clubbing, No cyanosis and No edema Psych Appearance: grossly normal Mental Status: mental status grossly normal Speech and movement: Normal speech and movement present Results Reviewed Results Reviewed: Noninvasive arterial testing dated 01/03/2025 demonstrates JEAN PIERRE on the right of 0.83 and on the left of 0.63. Written report and images were reviewed. Assessment & Plan Assessment & Plan (1) PAD (peripheral artery disease): Comment: 05/22/2022 - diagnostic angiogram Code(s): I73.9 - Peripheral vascular disease, unspecified Category: Medical Plan: In short patient has stable claudication. I did review the pathophysiology of peripheral vascular disease with the patient. In addition we did discuss routine conservative measures including a healthy diet and the importance of exercise and ambulation. We did discuss risk factor modification. The patient will continue to to follow-up with surveillance follow-up in approximately 1 year. Thank you for allowing us to participate in this patient's care. If there are any questions or concerns please do not hesitate to contact us. Orders: Orders US arterial duplex LE 1 Year I73.9 - Peripheral vascular disease, unspecified Coding Level of Care Code Est Pt Level 4 (41560) Complex EM visit Add On G2211 Diagnoses PAD (peripheral artery disease) I73.9
[2025-01-20 13:02] VITALS: BMI 25.5
== END 2025-01-20 13:27 | disposition home or self-care (01) ==
LOC: HO.HVS 12:58
PROVIDERS: PCP Family Medicine; Visit Provider Surgery Vascular Surgery
DX: I73.9 Peripheral vascular disease, unspecified (principal)
CPT/HCPCS: 99214; G2211

== ENCOUNTER → 2025-01-20 12:57 | Outpatient (BNVA) | payer MEDICARE, SELFPAY | PROVIDERS: PCP Family Medicine; Visit Provider Surgery Vascular Surgery | DX: E11.51 Type 2 diabetes mellitus with diabetic peripheral angiopathy without gangrene (principal) | CPT/HCPCS: 99212 ==

== ENCOUNTER 2025-02-16 14:22 | Outpatient (AMB) | payer MEDICARE, SELFPAY ==
--- OUTSIDE RECORDS SUMMARY | 2025-02-16 14:51 | XMS_ITS | Clinical Summary ---
Author Organization [address] [facility] Address [address] [place] [address] Phone Care Team Providers Care Boiler Fireman Name Role Phone Hieu Christina MD Primary [...] Panel) 06/29/2024 Colorectal Cancer Screening: Colonoscopy 06/29/2024 Falls Risk Assessment 06/29/2024 Hepatitis C Screening 06/29/2024 Medicare Annual Wellness Visit 06/29/2024 Social Influencers of Health Screening 06/29/2024 Depression Screening 07/14/2024 Diabetes: Annual Urine Albumin-Creatinine Ratio (uACR) 08/12/2024 [...] topic Insurance [employer] MEDICARE Care Teams Boiler Fireman Relationship Specialty Start Date End Date Hieu Christina MD [address] [place] [address] [address] [place] PCP - General Family Medicine 06/29/24
--- OUTSIDE RECORDS SUMMARY | 2025-02-16 14:51 | XMS_ITS | Clinical Summary ---
Author Organization [facility] Address [address] [place] [address] Care Team Providers Care Sports Medicine Physician Name Role Phone Unknown Primary Care Provider [phone] Allergies No known active allergies Medications metFORMIN [...] patient's age to complete this topic Insurance [facility] MEDICARE Care Teams Sports Medicine Physician Relationship Specialty Start Date End Date Unknown Unknow Provider Address PCP - General 01/21/19
--- NOTE | 2025-02-16 14:55 | MHC.PC.OV ---
Vital Signs 02/16/25 14:57 Height 5 ft 10 in Weight 172 lb 8 oz BMI 24.7 BP 110/60 Blood Pressure Location Rt brachial Position Sitting Respiration 12 Pulse 67 Pulse Source Pulse Oximeter Temp 98.0 F Temp Source Oral Pulse Oximetry (%) 98 Oxygen Delivery Method Room Air Intake Visit Reasons: f/u diabetes, HTN Intake Note: patient is scheduled for htn and dm Department Mgr Required: No Allergies environmental allergies Allergy (Mild, Verified 02/16/25 14:56) itchy, watery eyes, sneezing, coughing. Medication List - Last Reconciled 02/16/25 by Hieu Christina MD aspirin (Adult Aspirin Regimen) 81 mg PO DAILY atorvastatin 40 mg PO DAILY 90 days docusate sodium 100 mg PO BEDTIME fenofibrate micronized 134 mg PO DAILY lisinopril 10 mg PO DAILY 90 days metformin ER 500 mg PO BID metoprolol succinate ER 25 mg PO DAILY qftslxxp-qll-zismu-vit K-lycop 400-20-300 mcg (One-A-Day Men's Multivitamin) 1 tab PO DAILY sildenafil 100 mg PO DAILY PRN sitagliptin phosphate (Januvia) 100 mg PO DAILY 90 days vitamin B complex (B Complex-Vitamin B12 tablet) 1 tab PO DAILY Tobacco use date assessed: 06/21/24 Dental Screening Dental Screen Date: 06/21/24 HPI f/u diabetes, HTN HPI Details 69 y/o male presents to f/u diabetes, HTN. Blood pressure today 110/60, 67p. He is on lisinopril 10mg, metoprolol 25mg daily. Had a recent eye exam with a specialist at [place]. Pt reports no diabetic retinopathy. [facility] Medical History Skin cancer Hyperlipidemia HTN (hypertension) Arthritis Myocardial infarction Diabetes PAD (peripheral artery disease) CAD (coronary artery disease) COPD (chronic obstructive pulmonary disease) History of Mohs micrographic surgery for skin cancer Surgical History Hx of heart artery stent Hx of colonoscopy (~2014) History of tooth extraction History of bone graft Social History Household Members: Spouse Household Members Other:: son Housing: House Are you a primary respiratory care specialist to a significant other at home: No Do you presently have visiting nurse or other home services: No Alcohol intake: current Alcohol intake frequency: holidays/special occasions only Alcohol type: beer Patient Tobacco Use Status: Current everyday Tobacco user Tobacco use type: Cigarette Cigarette Packs Per Day: 1 Years Smoked: 45 e-Cigarette/Vaping Use: Never Used Second Hand Smoke Exposure: No service: No Current occupational status: retired Current occupation: right handed Current occupational exposures/hazards: No Sexual orientation: Unable to collect Gender identity: Unable to collect Cognitive needs: No Hearing needs: No Vision needs: No Questionnaire Thrive Questionnaire Date Thrive assessed: 10/13/24 I am a: Patient What is your living situation today?: I have a steady place to live Within the past 12 months, did the food you bought not last and you didn't have the money to get more?: Never true Within the past 12 months, did you worry whether your food would run out before you got money to buy more?: Never true Do you have trouble paying for medicines?: No Do you have trouble getting transportation to medical appointments?: No Do you have trouble paying your heating and electricity bill?: No Do you have trouble taking care of your child, family member or friend?: No Do you have trouble with day-to-day activities such as bathing, preparing meals, shopping, managing finances, etc.?: No Are you currently unemployed and looking for a job?: No Are you interested in more education?: Yes Please select the resources that you would like help with: None Currently or been in a relationship where the following occur: No concerns reported THRIVE Score: 0 NIGHAT-7 AMB Questionnaire NIGHAT-7 Date NIGHAT - 7 assessed: 06/21/24 Source: Developed by Drs. Rupert Milton, Diane Putnam, Mac Hamilton and colleagues, with an educational lolis from [employer]. Review of Systems Const Denies chills, Denies fatigue, Denies fever(s), Denies headache(s) and Denies weakness ENT Denies dizziness and Denies headache(s) Card Denies dyspnea Resp Denies cough, Denies dyspnea, Denies wheezing and Denies other (shortness of breath) Musc Denies numbness and Denies tingling Neuro Denies dizziness, Denies headache(s), Denies numbness, Denies tingling and Denies weakness Psych Denies anxiety and Denies depression Endo Denies fatigue Aller/Immun Denies wheezing Physical exam (Primary Care) Vital Signs: Last Vital Signs Temp 98.0 F 02/16/25 14:57 Pulse 67 02/16/25 14:57 Resp 12 02/16/25 14:57 BP 110/60 02/16/25 14:57 Pulse Ox 98 02/16/25 14:57 Oxygen Delivery Method Room Air 02/16/25 14:57 BMI result Body Mass Index 24.7 Tobacco/Smoking Status: Tobacco use Status Tobacco use date assessed 06/21/24 02/16/25 14:59 Patient Tobacco Use Status Current everyday Tobacco 02/16/25 14:59 Tobacco use type Cigarette 02/16/25 14:59 e-Cigarette/Vaping Use Never Used 02/16/25 14:59 Thrive Assessment: Date of Thrive Assessment Date Thrive assessed 10/13/24 02/16/25 14:59 Currently or been in a relationship where the following occur: No concerns reported Const General: well developed; No acute distress Nutritional Appearance: well nourished Orientation/consciousness: patient oriented x3 HENMT Head: Yes normocephalic and Yes atraumatic Eyes General: appearance normal, both eyes and all related structures Pupils: Equal, round and reactive pupils present EOM: EOMs intact bilaterally Resp Effort & Inspection: normal respiratory effort Auscultation: clear to auscultation bilaterally Cardio Rate: regular rate Rhythm: regular rhythm Heart sounds: S1 normal heart sound present, S2 normal heart sound present, no gallops, no murmurs and no rubs Neuro General: patient oriented x3 and gait normal Cranial nerves: Yes Equal, round and reactive pupils present Psych Affect: normal affect Coding Level of Care Code Est Pt Level 4 (64486) Diagnoses Essential hypertension I10 CAD (coronary artery disease) I25.10 Diabetes type 2, controlled E11.9 Cough R05.9 Assessment & Plan Assessment & Plan (1) Essential hypertension: Code(s): I10 - Essential (primary) hypertension Category: Medical Plan: Blood pressure is well controlled. Goal is less than 130/80 Continue current medications (2) CAD (coronary artery disease): Code(s): I25.10 - Atherosclerotic heart disease of [place] coronary artery without angina pectoris Category: Medical Plan: Stable (3) Diabetes type 2, controlled: Code(s): E11.9 - Type 2 diabetes mellitus without complications Category: Medical Plan: A1c 6.1%. Good control. Goal is less than 7.0% Continue current medication regimen Patient says he had diabetic retinal exam this year. Up-to-date. Will request report (4) Cough: Code(s): R05.9 - Cough, unspecified Category: Medical Plan: Mild cough due to poor air quality. No fevers or chills. Stay indoors in use air conditioning Humidified air Zyrtec Call if worsening or not improving
[2025-02-16 14:57] VITALS: BP 110/60; PULSE 67; RESP 12; TEMP 36.7; O2SAT 98; BMI 24.7
== END 2025-02-16 16:28 | disposition home or self-care (01) ==
LOC: HO.HMCFM 14:23
PROVIDERS: PCP Family Medicine; Visit Provider Family Medicine
DX: I10 Essential (primary) hypertension (principal); I25.10 Atherosclerotic heart disease of native coronary artery without angina pectoris; E11.9 Type 2 diabetes mellitus without complications; R05.9 Cough, unspecified

== ENCOUNTER → 2025-02-16 14:22 | Outpatient (BNVA) | payer MEDICARE, SELFPAY | PROVIDERS: PCP Family Medicine; Visit Provider Family Medicine | DX: I10 Essential (primary) hypertension (principal); I25.10 Atherosclerotic heart disease of native coronary artery without angina pectoris; R05.9 Cough, unspecified; E11.9 Type 2 diabetes mellitus without complications | CPT/HCPCS: 99212 ==

== ENCOUNTER 2025-06-17 07:36 | Outpatient (REF) | payer MEDICARE, SELFPAY ==
--- OUTSIDE RECORDS SUMMARY | 2021-02-13 07:52 | XMS_ITS | Encounter Summary ---
Author Organization [facility] Address [address] [place] [address] Care Team Providers Care Prepper Name Role Phone Unknown Primary Care Provider [phone] Encounter Details Date Type Department Care Team (Late st Contact Info) Description 02/13/2021 8:52 AM EDT Hospital Encounter [facility] [address] [place] [phone] Jonathan Dent MD [address] [place] [address] [phone] Social History Tobacco Use Types Packs/Day Years Used Date Smoking Tobacco: Every Day Cigarettes Smokeless Tobacco: Never Alcohol Use Standard Drinks/Week Comments Yes 6 (1 standard drink = 0.6 oz pur e alcohol) Sex and Gender Information Value Date Recorded Sex Assigned at Not on file Legal Sex Male 12:53 PM EDT Gender Identity Not on file Sexual Orientation Not on file COVID-19 Exposure Response Date Recorded In the last month, have you been in contact with someone who was confirmed or suspected to have Coronavirus / COVID-19? Unable to assess 02/13/2021 8:19 AM EDT documented as of this encounter Plan of Treatment Not on file documented as of this encounter Procedures Procedure Name Priority Date/Time Associated Diagnosis Comments XR FINGER (3RD) 2+ VIEWS-RIGHT STAT 02/13/2021 8:56 AM EDT Finger injury, right, initial encounter documented in this encounter Results * XR Finger (3rd) 2+ views-Right (02/13/2021 8:56 AM EDT) Anatomical Region Laterality Modality Hand Right Computed Radiogr aphy 02/13/2021 9:38 AM EDT Impressions 02/13/2021 9:41 AM EDT 1. Severe degenerative changes of the interphalangeal joints most notable at the proximal interphalangeal joints of the index and fifth finger and the distal interphalangeal joint of the middle finger. 2. There is a small ossific density distal interphalangeal joint likely due to degenerative change or old evulsion injury. No acute fracture detected. 3. Question minimal erosive changes. Question erosive osteoarthritis. Narrative 02/13/2021 9:41 AM EDT XR FINGER (3RD) 2+ VIEWS-RIGHT: 02/13/2021 8:52 AM CLINICAL HISTORY: right middle finger pain, pain over DIP and echymosis, rule out fx. Finger injury, right, initial encounter. FINDINGS: There are marked hypertrophic degenerative changes at the interphalangeal joints. This is particularly notable at the distal interphalangeal joint of the right middle finger. Question mild erosive change at the volar aspect of the base of the distal phalanx. Prominent hypertrophic bony changes present. There is a small ossific density adjacent to the distal phalanx which likely is of degenerative nature. An old avulsion injury cannot be completely excluded. No acute fracture detected. Severe hypertrophic bony changes proximal interphalangeal joint of the fifth and index finger as well. Relative preservation of the radiocarpal joint. Procedure Note Sergio Ochoa MD - 02/13/2021 XR FINGER (3RD) 2+ VIEWS-RIGHT: 02/13/2021 8:52 AM CLINICAL HISTORY: right middle finger pain, pain over DIP and echymosis, rule out fx. Fingerinjury, right, initial encounter. FINDINGS: There are marked hypertrophic degenerative changes at the interphalangealjoints. This is particularly notable at the distal interphalangeal jointof the right middle finger. Question mild erosive change at the volar aspect of the base of the distalphalanx. Prominent hypertrophic bony changes present. There is a smallossific density adjacent to the distal phalanx which likely is ofdegenerative nature. An old avulsion injury cannot be completely excluded. No acute fracture detected. Severe hypertrophic bony changes proximal interphalangeal joint of thefifth and index finger as well. Relative preservation of the radiocarpaljoint. IMPRESSION: 1. Severe degenerative changes of the interphalangeal joints most notableat the proximal interphalangeal joints of the index and fifth finger andthe distal interphalangeal joint of the middle finger. 2. There is a small ossific density distal interphalangeal joint likelydue to degenerative change or old evulsion injury. No acute fracturedetected. 3. Question minimal erosive changes. Question erosive osteoarthritis. Ama ARCE IMG DIAGNOSTIC IMAGING ORD ERABLES Final Result documented in this encounter Visit Diagnoses Not on filedocumented in this encounter Care Teams Prepper Relationship Specialty Start Date End Date Unknown Unknow Provider Address PCP - General 01/21/19 documented as of this encounter
--- OUTSIDE RECORDS SUMMARY | 2025-06-17 07:39 | XMS_ITS | Clinical Summary ---
Author Organization [facility] Address [address] [place] [address] Care Team Providers Care Broaching Machine Set Up Operator Name Role Phone Unknown Primary Care Provider [phone] Allergies No known active allergies Medications metFORMIN [...] Health Maintenance Due Date Last Done Comments Advance Care Planning 1955 Hepatitis C Virus Screening 1954 DTaP/Tdap/Td Vaccines (1 - Tdap) 1973 Colonoscopy 1999 Pneumococcal Vaccines 50+ (1 of 1 - PCV) 2004 RSV Vaccine 50 years and old er and Patients (1 - Risk 50-74 years 1-dose series) 2004 Zoster (Shingles) Vaccine (1 of 2) 2004 Influenza Vaccine 02/11/2025 COVID-19 Vaccine (1 - 2023-2 5 season) 2025 Hepatitis B Vaccines Aged Out No long er eligible based on patient's age to complete this topic Insurance [facility] MEDICARE Care Teams Broaching Machine Set Up Operator Relationship Specialty Start Date End Date Unknown Unknow Provider Address PCP - General 01/21/19
--- OUTSIDE RECORDS SUMMARY | 2025-06-17 07:39 | XMS_ITS | Clinical Summary ---
Author Organization [address] [facility] Address [address] [place] [address] Phone Care Team Providers Care Concrete Form Setter And Finisher Name Role Phone Hieu Christina MD Primary [...] Health Maintenance Due Date Last Done Comments Colorectal Cancer Screening: Colonoscopy 1954 Diabetes: Annual GFR (Glomerular Filtration Rate) 1954 Diabetes: Annual Foot Exam 1964 Diabetes: Annual Retina Eye Exam 1964 Pneumococcal Vaccine: 50+ Years (2 of 2 - PPSV23, PCV20, or PCV21) 08/23/2016 06/28/2016 Abdominal Aortic Aneurysm (AAA) Screen 06/29/2024 Cholesterol Screening (Lipid Panel) 06/29/2024 Falls Risk Assessment 06/29/2024 Hepatitis C Screening 06/29/2024 Medicare Annual Wellness Visit 06/29/2024 Social Influencers of Health Screening 06/29/2024 Depression Screening 07/14/2024 Diabetes: Annual Urine Albumin-Creatinine Ratio (uACR) 08/12/2024 Diabetes: Blood Sugar Control Test (HGBA1C) 08/12/2024 Hypertension/CHF/CAD Annual BMP Blood Test 08/12/2024 COVID-19 Vaccine ( season) 2025 05/17/2024, 04/25/2022, 10/21/2021, Additional history exists Influenza [...] topic Insurance [employer] MEDICARE Care Teams Concrete Form Setter And Finisher Relationship Specialty Start Date End Date Hieu Christina MD [address] [place] [address] Dr [place] PCP - General Family Medicine 06/29/24
--- OUTSIDE RECORDS SUMMARY | 2025-06-17 07:39 | XMS_ITS | Data Portability ---
Author Organization [place] [facility] Address [address] [place] [address] Care Team Providers Care Spiritual Counselor Name Role Phone NATHAN KENRICK Primary Care Provider [phone] Assessment Encounter Date Assessment Date Assessment LastModified [...] PRN Time On Scene with Patient: 00:37:04 [email or web address] Not available 07/04/2021 10:05:34 Plan of Treatment Reminders Order Date Submit Date Provider Last Modified By Organization Details Last Modified Time Details Appointments None recorded. Lab None recorded. Referral None recorded. Procedures None recorded. Surgeries None recorded. Imaging None recorded. Medication Orders ketorolac 10 mg tablet 2020 021 [employer] [facility][id number], [facility], [address], [place], [id number], 10:07:02 Patient TargetsNo targets recorded. Patient Instructions Encounter Date Encounter Id Patient Instructions Last Modified By Organization Details Last Modified Time 07/04/2021 [id number] hamstring strain : rehab exercises [email or web address] Not available 07/04/2021 10:08:01 hamstring strain : care instructions [email or web address] Not available 07/04/2021 10:07:59 Hamstring Strain: Care [...] your doctor if you can take an imza-cho-uxcarrv pain medicine, such as acetaminophen (Tylenol), ibuprofen [...] expected. Care instructions adapted under license by [facility]. This care instruction is for use with your licensed healthcare professional. If you have questions about a medical condition or this instruction, always ask your healthcare professional. mii disclaims any warranty or liability for your [...] take. Care instructions adapted under license by [facility]. This care instruction is for use with your licensed healthcare professional. If you have questions about a medical condition or this instruction, always ask your healthcare professional. mii disclaims any warranty or liability for your use of this information. [email or web address] Not available 07/04/2021 10:07:58 Reason for Referral None Reported. Procedures Surgical History Date Name Laterality Status Provider Name and Address Organization Details Recorded Time imaging guided percutaneous transluminal angioplasty of blood vessel with contrast completed Umesh Paez NP [address] [place] [address], [id number], [facility] - [facility] 07/04/2021 09:30:33 Imaging Results [...] t Available Vitals Date Recorded Oxygen saturation Respiratory rate Heart rate Body temperature Systolic And Diastolic Provider Name and Address Organization Details Last Updated DateTime 98 % 18 /min 75 /min 98.6 [degF] 118/70 mm[Hg] Not Available [facility] 09:02:58 Social History Question Answer Notes LastModified by Organizat ion Details LastModified Time Tobacco Smoking Status Never Smoker Umesh Paez, AM[facility] [address], [place], [address], [place] - [facility] 07/04/2021 09:29:28 Do You Have An Advance Directive? No [email or web address] Information not available 07/04/2021 What Is Your Code Status? Full Code [email or web address] Information not available 07/04/2021 Within The Past 12 Months, Has It Happened That The Food You Bought Just Didn't Last And You Didn't Have Money To Get More. No [email or web address] Information not available 07/04/2021 Within The Past 12 Months, Have You Worried That Your Food Would Run Out Before You Got Money To Buy More. No [email or web address] Information not available 07/04/2021 Fall Risk: Do You Feel Unsteady When Standing Or Walking? No [email or web address] Information not available 07/04/2021 We Know That How And When People Interact With Friends And Family Can Be Very Different From Person To Person. How Often Do You Have The Opportunity To See Or Talk To People That You Care About And Feel Close To? (Ex: Talking To Friends On The Phone Or Visiting Friends Or Family Or Going To Nondenominational Or Club Meetings) 3 Or 4 Times Per Week [email or web address] Information not available 07/04/2021 Excessive Alcohol Or Drug Use No [email or web address] Information not available 07/04/2021 Does This Patient Have A PCP? Yes [email or web address] Information not available 07/04/2021 We Know From Many Of Our Patients That Covering All Of Their Costs Can Be Difficult At Times. This Can Cause Stress And Impact Health. In The Past Year, Have You Been Unable To Get Any Of The Following When It Was Really Needed? No [email or web address] Information not available 07/04/2021 What Is Your Housing Situation Today? I Have Housing [email or web address] Information not available 07/04/2021 Would You Like Help Connecting To Resources? None [email or web address] Information not available 07/04/2021 Sex: Unknown Functional Status Question Answer Note LastModified by Organizat ion Details LastModified Time Do you use any illicit or recreational drugs? No [email or web address] Information not available 07/04/2021 Do you or have you ever used any other forms of tobacco or nicotine? No [email or web address] Information not available 07/04/2021 What is your level of alcohol consumption? Occasional [email or web address] Information not available 07/04/2021 Mental Status None recorded. Family History Nothing Reported. Medical History Condition Response Diabetes Y Coronary Artery Disease N CHF N Parkinson's Disease N Cancer N Dementia N Stroke N Hypothyroidism N Depression N COPD N Asthma N High Cholesterol Y Rheumatoid Arthritis N Pulmonary Embolism N Hypertension Y A-fib N Osteoporosis N Kidney Disease N Past Encounters Encounter ID Performer Location Encounter Start Date Encounter Closed Date Diagnosis/Indication Diagnosis SNOMED-CT Code Diagnosis ICD10 Code Diagnosis IMO Codes Diagnosis Note [id number] Umesh Paez NP [facility] [address] [place] [address] 07/04/2021 08:57:00 07/04/2021 10:15:40 Strain of hamstring muscle [id number] 04 S76.311A Health Concerns Section Related Observation LastModified by Organization Detai ls LastModified Time None Recorded Concern Status LastModified by Organization Details LastModified Time None Recorded Advance Directives Directive N: Payers Insurance Date Sequence Insurance Name Policy Number Policy Green Covered Member ID Green Member ID Guarantor Name 07/03/2021 1 [facility] (MEDICARE REPLACEMENT/A DVANTAGE - HMO) [id number] Gurpreet Eaton [id number] Gurpreet Eaton 07/03/2021 1 *SELF PAY* Gurpreet Uma [id number] Gurpreet aEton Notes Date Note Type Note Provider Name [...] to stretch or run. Umesh Paez, [facility] [address], [place], [address], [place] - [facility] 07/04/2021 10:08:26
--- OUTSIDE RECORDS SUMMARY | 2025-06-17 07:40 | XMS_ITS | Clinical Summary ---
Author Organization [facility] Address [facility] [place] [address] Care Team Providers Care Supervisor Assembly And Packing Name Role Phone Hieu Christina MD Primary Care Provider [phone] Medications oxyCODONE (Roxicodone) 5 mg Tablet Take 1 tablet by mouth every 4 hours as needed for Pain. 10 tablet 08/06/2022 Active Social History Tobacco Use Types Packs/Day Years Used Date Smoking Tobacco: Never Assessed Sex and Gender Information Value Date Recorded Sex Assigned at Not on file Legal Sex Male 3:36 PM EST Gender Identity Not on file Sexual Orientation Not on file Last Filed Vital Signs Vital Sign Reading Time Taken Comments Blood Pressure 120/79 08/06/2022 7:37 PM EST Pulse 90 08/06/2022 7:37 PM EST Temperature 36.2 C (97.1 F) 08/06/2022 4:15 PM EST Respiratory Rate 18 08/06/2022 6:00 PM EST Oxygen Saturation 98% 08/06/2022 6:00 PM EST Inhaled Oxygen Concentration - - Weight 81.6 kg (180 lb) 08/06/2022 4:15 PM EST Height 177.8 cm (5' 10 ) 08/06/2022 4:15 PM EST Body Mass Index 25.83 08/06/2022 4:15 PM EST Plan of Treatment Health Maintenance Due Date Last Done Comments CT Colonography 1954 Colonoscopy 1954 Colorectal Cancer Screening 1954 FIT DNA 1954 FIT 1954 Sigmoidoscopy (10 year) with FIT yearly 1954 Sigmoidoscopy 1954 Hepatitis C Screening 1972 Lipid Screening 1972 Tetanus/Diphtheria/Pertussis Vaccines (1 - Tdap) 07/24 Diabetes Screening (HgbA1C or Glucose) 1989 Pneumoccocal Vaccine: 50+ (1 of 1 - PCV) 2004 Zoster vaccine (1 of 2) 2004 Advance Directive 2009 Covid-19 Vaccine (1 - 2024- season) 2025 Influenza (Flu) vaccine (1 o f 1 - Influenza standard series) 03/14/2025 Insurance [id number] (Home) [address] [place] [id number] [facility] MANAGED MEDICARE Care Teams Supervisor Assembly And Packing Relationship Specialty Start Date End Date Hieu Christina MD [address] [facility] [place] [id number] PCP - General 07/14/22
[2025-06-17 11:31] LABS: MANUAL DIFF FLAG NO
[2025-06-17 11:39] LABS: Appearance Urine Clear; Glucose Urine UA Negative (Negative); PH 5.0 (5.0-9.0); Specific Gravity - Urine 1.015 (1.005-1.025)
[2025-06-17 11:43] LABS: Hematocrit 45.5 % (42.0-52.0); Hemoglobin 15.0 g/dl (14.0-18.0); Imm Gran Abs Auto 0.02 X10*3/uL (0.00-0.03); Imm Gran Pct Auto 0.3 % (0.0-0.4); Lymphocytes Absolute Auto 2.2 X10*3/uL (1.2-4.9); Mean Corpuscular HGB Conc 33.0 g/dl (31.0-36.0); Mean Corpuscular Hemoglobin 31.3 pg (27.0-33.0); Mean Corpuscular Volume 94.8 fL (80.0-98.0); NRBC Abs Auto 0.000 X10*3/uL (0.0-0.012); NRBC Pct Auto 0.0 /100WBC (0.0-0.2); Platelet Count 241 X10*3/uL (160-400); Red Blood Count 4.80 X10*6/uL (4.60-5.80); White Blood Count 7.4 X10*3/uL (4.8-10.8)
[2025-06-17 12:00] LABS: Alanine Aminotransferase 19 U/L (0-40); Albumin Level 4.5 g/dL (3.5-5.0); Alkaline Phosphatase 65 U/L (39-117); Anion Gap 11 (12-20); Aspartate Amino Transferase 41 U/L (5-37); Blood Urea Nitrogen 13 mg/dL (9-16); Calcium 9.1 mg/dL (8.4-10.2); Carbon Dioxide 24 mmol/L (22-29); Chloride 109 mmol/L (96-108); Cholesterol 99 mg/dL (<200); Estimated Glomerular Filt Rate > 60; HDL Cholesterol 32 mg/dL (>40); Potassium 3.9 mmol/L (3.3-5.1); Sodium 140 mmol/L (135-145); Total Protein 7.2 g/dL (6.5-8.0); Triglycerides 106 mg/dL (<150)
[2025-06-17 12:13] LABS: Microalbum/Creatinine Ratio Ur 4.5 ug/mg cr (<30)
== END 2025-06-17 07:37 | disposition home or self-care (01) ==
LOC: HO.WFDLDS 07:36
PROVIDERS: Visit Provider Family Medicine
DX: Z00.00 Encounter for general adult medical examination without abnormal findings (principal); Z12.5 Encounter for screening for malignant neoplasm of prostate; I10 Essential (primary) hypertension
CPT/HCPCS: 36415; 80053; 80061; 81003; 82043; 82570; 84153; 84443; 85025

== ENCOUNTER 2025-06-23 11:40 | Outpatient (AMB) | payer MEDICARE, SELFPAY ==
--- NOTE | 2025-06-23 11:58 | MHC.PC.OV ---
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 Medication List - Last Reconciled 06/23/25 by Hieu Christina MD aspirin (Adult Aspirin Regimen) 81 mg PO DAILY atorvastatin 40 mg PO DAILY 90 days docusate sodium 100 mg PO BEDTIME fenofibrate micronized 134 mg PO DAILY lisinopril 10 mg PO DAILY 90 days metformin ER 500 mg PO BID metoprolol succinate ER 25 mg PO DAILY ntjnnaic-mol-nrwex-vit K-lycop 400-20-300 mcg (One-A-Day Men's Multivitamin) 1 tab PO DAILY sildenafil 100 mg PO DAILY PRN sitagliptin phosphate (Januvia) 100 mg PO DAILY 90 days vitamin B complex (B Complex-Vitamin B12 tablet) 1 tab PO DAILY Tobacco use date assessed: 06/23/25 Fall risk assessment: 1 Fall in past year Last assessed Fall Risk: 06/23/25 Dental Screening Dental Screen Date: 06/23/25 Did you have a dental visit in the last 12 months?: Yes Did you have a dental problem in the last 6 months where you did not have access to dental care?: No Was dental information given to patient?: Patient has dentist HPI Annual PE HPI Details 69 y/o male presents for a CPE with f/u labs and health maint. Labs drawn 06/17/25. Reviewed labs with pt. Fasting glucose 126. AST 41. ALT 19. TC 99. LDL 46. HDL low at 32. He is on artovastatin 40mg daily. PSA 2.22. Blood pressure today 108/56, 70p. He is on lisinopril 10mg, metoprolol 25mg daily. A1c 6.7% 06/23/25. Complaints of a cough. [facility] Medical History Skin cancer Hyperlipidemia HTN (hypertension) Arthritis Myocardial infarction Diabetes PAD (peripheral artery disease) CAD (coronary artery disease) COPD (chronic obstructive pulmonary disease) History of Mohs micrographic surgery for skin cancer Surgical History Hx of heart artery stent Hx of colonoscopy (~2014) History of tooth extraction History of bone graft Social History (Updated 06/23/25 @ 12:05 by Shaji Bernal CMA) Household Members: Spouse Household Members Other:: son Housing: House Are you a primary summer child caregiver to a significant other at home: No Do you presently have visiting nurse or other home services: No Alcohol intake: current Alcohol intake frequency: holidays/special occasions only Alcohol type: beer Patient Tobacco Use Status: Current everyday Tobacco user Tobacco use type: Cigarette Cigarette Packs Per Day: 1 Years Smoked: 45 e-Cigarette/Vaping Use: Never Used Second Hand Smoke Exposure: No service: No Current occupational status: retired Current occupation: right handed Current occupational exposures/hazards: No Sexual orientation: Unable to collect Gender identity: Unable to collect Cognitive needs: No Hearing needs: No Vision needs: No Questionnaire PHQ-9 Over the last 2 weeks, how often have you been bothered by any of the following problems? 1. Little interest or pleasure in doing things: not at all 2. Feeling down, depressed, or hopeless: not at all 3. Trouble falling or staying asleep, or sleeping too much: not at all 4. Feeling tired or having little energy: not at all 5. Poor appetite or overeating: not at all 6. Feeling bad about yourself - or that you are a failure or have let yourself or your family down: not at all 7. Trouble concentrating on things, such as reading the newspaper or watching television: not at all 8. Moving or speaking so slowly that other people could have noticed. Or the opposite - being so fidgety or restless that you have been moving around a lot more than usual: not at all 9. Thoughts that you would be better off or of hurting yourself in some way: not at all Total score: 0 Depression Screening Interpretation: Negative Depression Screening Done: Yes 30660 - PHQ-9 Billing: Yes Source: Developed by Drs. Rupert Milton, DianeMac Pickett and colleagues, with an educational lolis from [facility]. Thrive Questionnaire Date Thrive assessed: 10/13/24 I am a: Patient What is your living situation today?: I have a steady place to live Within the past 12 months, did the food you bought not last and you didn't have the money to get more?: Never true Within the past 12 months, did you worry whether your food would run out before you got money to buy more?: Never true Do you have trouble paying for medicines?: No Do you have trouble getting transportation to medical appointments?: No Do you have trouble paying your heating and electricity bill?: No Do you have trouble taking care of your child, family member or friend?: No Do you have trouble with day-to-day activities such as bathing, preparing meals, shopping, managing finances, etc.?: No Are you currently unemployed and looking for a job?: No Are you interested in more education?: Yes Please select the resources that you would like help with: None Currently or been in a relationship where the following occur: No concerns reported THRIVE Score: 0 AUDIT C Alcohol Use Questionnaire (AUDIT-C) 1. How often do you have a drink containing alcohol?: 2-4 times a month 2. How many drinks containing alcohol do you have on a typical day when you are drinking?: 1 or 2 3. How often do you have six or more drinks on one occasion?: Never Total Score: 2 NIGHAT-7 AMB Questionnaire NIGHAT-7 Date NIGHAT - 7 assessed: 06/21/24 Source: Developed by Drs. Rupert Milton, Mac Hair and colleagues, with an educational lolis from [facility]. Review of Systems Const Denies chills, Denies fatigue, Denies fever(s), Denies headache(s) and Denies weakness Eyes Denies change in vision ENT Denies dizziness, Denies headache(s), Denies hearing loss, Denies nasal congestion, Denies sinus pain, Denies sinus pressure and Denies sore throat Card Denies chest pain, Denies lightheadedness, Denies dyspnea and Denies other (palpitations) Resp Reports cough, Denies dyspnea and Denies wheezing GI Denies abdominal pain, Denies melena, Denies hematochezia, Denies change in bowel habits, Denies dyspepsia and Denies nausea Denies hematuria and Denies dysuria Musc Denies abnormal gait, Denies myalgias, Denies arthralgias, Denies numbness and Denies tingling Skin/Breast Denies rash, Denies unusual bruising and Denies wounds Neuro Denies abnormal gait, Denies dizziness, Denies headache(s), Denies memory loss, Denies numbness, Denies Sensory deficit (Neuro), Denies tingling and Denies weakness Psych Denies anxiety, Denies depression and Denies memory loss Endo Denies cold intolerance, Denies fatigue, Denies heat intolerance, Denies polydipsia and Denies polyuria Jareth/Lymph Denies easy bleeding and Denies easy bruising Aller/Immun Denies wheezing Physical exam (Primary Care) Vital Signs: Last Vital Signs Temp 97.4 F 06/23/25 12:05 Pulse 70 06/23/25 12:05 Resp 16 06/23/25 12:05 BP 108/56 L 06/23/25 12:05 Pulse Ox 100 06/23/25 12:05 Oxygen Delivery Method Room Air 06/23/25 12:05 BMI result Body Mass Index 25.0 Tobacco/Smoking Status: Tobacco use Status Tobacco use date assessed 06/23/25 06/23/25 12:08 Patient Tobacco Use Status Current everyday Tobacco 06/23/25 12:05 Tobacco use type Cigarette 06/23/25 12:05 e-Cigarette/Vaping Use Never Used 06/23/25 12:05 PHQ-9: PHQ-9 Score PHQ-9: Total score 0 06/23/25 12:42 Depression Screening Interpretation: Negative Thrive Assessment: Date of Thrive Assessment Date Thrive assessed 10/13/24 06/23/25 11:58 Currently or been in a relationship where the following occur: No concerns reported Const General: no acute distress, well developed, alert and awake Nutritional Appearance: well nourished Orientation/consciousness: patient oriented x3 HENMT Head: Yes normocephalic and Yes atraumatic Ears: hearing grossly normal bilaterally and TM's normal bilaterally General nose exam: Normal external nose present and Normal nares present Mouth: Normal oral and palatal mucosa present and moist mucous membranes Teeth and gingiva: dentition normal Throat: Yes posterior oropharynx normal Eyes General: appearance normal, both eyes and all related structures Pupils: Equal, round and reactive pupils present and Pupil accommodation reflex normal EOM: EOMs intact bilaterally Neck Neck: Yes normal visual inspection, Yes no lymphadenopathy and Yes trachea midline Thyroid: Thyroid normal Carotids: no bruits Lymphatic: no lymphadenopathy noted Chest Chest palpation & inspection: normal inspection of the chest Resp Other: Faint vibratory hum L lower lung field Effort & Inspection: normal respiratory effort Auscultation: clear to auscultation bilaterally Cardio Rate: regular rate Rhythm: regular rhythm Heart sounds: S1 normal heart sound present, S2 normal heart sound present, no gallops, no murmurs and no rubs Bruits: no abdominal aortic bruits and no carotid bruits GI Palpation (GI): No Abdominal aortic bruit present, Soft to palpation, nontender, No hepatosplenomegaly present and No Rebound tenderness present Auscultation: normal bowel sounds General: Yes no CVA tenderness Back/Spine/Pelvis Back: no CVA tenderness Cervical Spine: cervical ROM normal and No Cervical spine tenderness Thoracic/Lumbar Spine: thoraco-lumbar ROM normal, No pain with thoraco-lumbar ROM, No thoracic spinal tenderness and No lumbar spinal tenderness Skin Lesions: no lesions Rashes: no rashes Trauma: no lacerations or abrasions Wounds: no wounds Nails: normal Neuro General: patient oriented x3 Cranial nerves: Yes Equal, round and reactive pupils present Cognition (Neuro): normal cognition Gait exam (Neuro): Normal gait present Motor exam (neuro): 5/5 motor strength present throughout Sensory Exam: No Sensory deficit (Neuro) Deep tendon reflexes (DTR's): Right patellar reflex intensity grade: 2+ and Left patellar reflex intensity grade: 2+ Extrem General: Yes normal to inspection and No edema Psych Appearance: grossly normal Affect: normal affect Attitude: cooperative Thought process: Normal thought process present Results AMB Hemoglobin A1c AMB Hemoglobin A1c 6.7 % Last Edit by Debra Dailey CMA on 06/23/25 12:16 Results Reviewed Results Reviewed: Laboratory Last Values Hgb A1c (Clinic) 6.7 % (4.0-6.0) H 06/23/25 12:14 Coding Level of Care Code Est Pt Level 3 (94622) Est Pt Prev Care >65y(88451) Diagnoses Adult general medical exam Z00.00 Diabetes type 2, controlled E11.9 Essential hypertension I10 CAD (coronary artery disease) I25.10 History of LA (myocardial infarction) I25.2 Hyperlipidemia, mixed E78.2 Abnormal lung sounds R09.89 Screening for colon cancer Z12.11 Screening for prostate cancer Z12.5 Low HDL (under 40) E78.6 Additional Codes PHQ-9 - 74946 - PHQ-9 Billing: Yes ([id number]) Assessment & Plan Assessment & Plan (1) Adult general medical exam: Code(s): Z00.00 - Encounter for general adult medical examination without abnormal findings Category: Medical Plan: 69-year-old male presents for complete physical exam (2) Diabetes type 2, controlled: Code(s): E11.9 - Type 2 diabetes mellitus without complications Category: Medical Plan: A1c 6.7%. Controlled. Goal is less than 7.0% Continue current medication regimen (3) Essential hypertension: Code(s): I10 - Essential (primary) hypertension Category: Medical Plan: Blood pressure is controlled. Goal is less than 130/80 Continue current medication (4) CAD (coronary artery disease): Code(s): I25.10 - Atherosclerotic heart disease of [place] coronary artery without angina pectoris Category: Medical Plan: Stable Follow-up with Dr. Bullard as recommended (5) History of LA (myocardial infarction): Code(s): I25.2 - Old myocardial infarction Category: Medical Plan: Stable (6) Hyperlipidemia, mixed: Code(s): E78.2 - Mixed hyperlipidemia Category: Medical Plan: HDL is still low LDL cholesterol is well below goal of 70. 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 (7) Abnormal lung sounds: Code(s): R09.89 - Other specified symptoms and signs involving the circulatory and respiratory systems Category: Medical Plan: Patient notes cough and has faint vibratory hum at left lower lung field Check chest x-ray Will call patient if action is required (8) Screening for colon cancer: Code(s): Z12.11 - Encounter for screening for malignant neoplasm of colon Category: Medical Plan: Patient had a colonoscopy in November of this year He was told to follow-up in 3 years Up-to-date (9) Screening for prostate cancer: Code(s): Z12.5 - Encounter for screening for malignant neoplasm of prostate Category: Medical Plan: PSA was within normal range Will continue annual screening (10) Low HDL (under 40): Code(s): E78.6 - Lipoprotein deficiency Category: Medical Plan: As above Orders: Orders AMB Hemoglobin A1c Today E11.9 - Type 2 diabetes mellitus without complications XR chest 2V Today R05.9 - Cough, unspecified, R09.89 - Other specified symptoms and signs involving the circulatory and respiratory systems US abdominal aortic aneurysm Today Z13.6 - Encounter for screening for cardiovascular disorders
[2025-06-23 12:05] VITALS: BP 108/56; PULSE 70; RESP 16; TEMP 36.3; O2SAT 100; BMI 25.0
== END 2025-06-23 13:09 | disposition home or self-care (01) ==
LOC: HO.HMCFM 11:41
PROVIDERS: PCP Family Medicine; Visit Provider Family Medicine
DX: Z00.00 Encounter for general adult medical examination without abnormal findings (principal); E11.9 Type 2 diabetes mellitus without complications; I10 Essential (primary) hypertension; I25.10 Atherosclerotic heart disease of native coronary artery without angina pectoris; E78.2 Mixed hyperlipidemia; R09.89 Other specified symptoms and signs involving the circulatory and respiratory systems; I25.2 Old myocardial infarction; E78.6 Lipoprotein deficiency; Z12.5 Encounter for screening for malignant neoplasm of prostate

== ENCOUNTER → 2025-06-23 11:40 | Outpatient (BNVA) | payer MEDICARE, SELFPAY | PROVIDERS: PCP Family Medicine; Visit Provider Family Medicine | DX: Z00.00 Encounter for general adult medical examination without abnormal findings (principal); I10 Essential (primary) hypertension; E11.9 Type 2 diabetes mellitus without complications; I25.10 Atherosclerotic heart disease of native coronary artery without angina pectoris; I25.2 Old myocardial infarction; E78.2 Mixed hyperlipidemia; R09.89 Other specified symptoms and signs involving the circulatory and respiratory systems; E78.6 Lipoprotein deficiency; Z13.31 Encounter for screening for depression; Z79.899 Other long term (current) drug therapy | CPT/HCPCS: 83036; 96127; 99397 ==